=== PATIENT | female | born 2005 | race Caucasian/White ===

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

== ENCOUNTER → 2023-03-05 23:23 | Outpatient (CLI) | payer BC, SELFPAY | PROVIDERS: PCP Nurse Practitioner; Visit Provider Nurse Practitioner | DX: R30.0 Dysuria (principal) | CPT/HCPCS: 87086 ==

== ENCOUNTER → 2023-05-26 23:22 | Outpatient (CLI) | payer BC, SELFPAY | PROVIDERS: PCP Nurse Practitioner; Visit Provider Nurse Practitioner | DX: N39.0 Urinary tract infection, site not specified (principal) | CPT/HCPCS: 87086 ==

== ENCOUNTER → 2023-07-29 21:08 | Outpatient (CLI) | payer BC, SELFPAY | PROVIDERS: PCP Nurse Practitioner; Visit Provider Nurse Practitioner | DX: R30.0 Dysuria (principal) | CPT/HCPCS: 87086 ==

== ENCOUNTER → 2023-10-09 23:31 | Outpatient (CLI) | payer BC, SELFPAY | PROVIDERS: PCP Nurse Practitioner; Visit Provider Nurse Practitioner | DX: N10 Acute pyelonephritis (principal); B96.89 Other specified bacterial agents as the cause of diseases classified elsewhere | CPT/HCPCS: 87086 ==

== ENCOUNTER → 2023-10-15 09:16 | Outpatient (CLI) | payer BC, SELFPAY | PROVIDERS: PCP Nurse Practitioner; Visit Provider Nurse Practitioner | DX: N39.0 Urinary tract infection, site not specified (principal); B96.89 Other specified bacterial agents as the cause of diseases classified elsewhere | CPT/HCPCS: 87086 ==

== ENCOUNTER 2023-10-21 19:22 | Emergency (ER) | payer BC, SELFPAY ==
[2023-10-21 19:24] VITALS: BP 119/74; PULSE 77; RESP 16; TEMP 36.6; O2SAT 97; BMI 25.7
[2023-10-21 20:00] LABS: Microscopic, Urine URINE MICROSCOPIC (MICROSCOPIC)
[2023-10-21 20:04] LABS: Appearance,Urine CLEAR (Clear); Blood, Urine TRACE-I (Negative); Color,Urine YELLOW (Yellow); Glucose,Urine (UA) Negative (Negative); Ketones,Urine Negative (Negative); Leukocyte Esterase,Urine 1+ (Negative); Nitrate,Urine Negative (Negative); PH,Urine 6.5 (5.0-8.5); Protein,Urine Negative (Negative); Urobilinogen,Urine 0.2 EU/dl (0.2)
--- NOTE | 2023-10-21 20:41 | HMH.EDGENADL ---
Discharge Plan Disposition Patient Disposition: Home, Self-Care Prescriptions Prescriptions: New nitrofurantoin monohyd/m-cryst [Macrobid] 100 mg capsule 100 mg PO BID 30 Days Qty: 60 0RF Rx Instructions: must administer with a meal/food No Action varenicline [Chantix Starting Month Box] 0.5 mg (11)- 1 mg (42) tablets,dose pack See Rx Instructions PO PER PKG DIR Qty: 53 0RF Rx Instructions: PO PER PKG DIR naproxen [Naprosyn] 500 mg tablet 500 mg PO BID Qty: 60 3RF cyclobenzaprine 10 mg tablet 10 mg PO TID PRN (Reason: muscle spasm) Qty: 90 0RF doxycycline hyclate 100 mg tablet 100 mg PO BID Qty: 14 0RF nitrofurantoin macrocrystal 50 mg capsule 50 mg PO .PRN Rx Instructions: must administer with a meal/food; take before intercourse phenazopyridine [Pyridium] 200 mg tablet 200 mg PO TID 0 Days Qty: 6 0RF olanzapine 5 mg tablet See Rx Instructions .ROUTE .COMPLEX Qty: 30 5RF Dose Instruction: TAKE 1 TABLET BY MOUTH EVERYDAY AT BEDTIME Rx Instructions: TAKE 1 TABLET BY MOUTH EVERYDAY AT BEDTIME fluoxetine 20 mg capsule See Rx Instructions .ROUTE .COMPLEX Qty: 30 5RF Dose Instruction: TAKE 1 CAPSULE BY MOUTH EVERY DAY Rx Instructions: TAKE 1 CAPSULE BY MOUTH EVERY DAY norethindrone-e.estradiol-iron [12/20 (28)] 1 mg-20 mcg (21)/75 mg (7) tablet See Rx Instructions .ROUTE .COMPLEX Qty: 84 3RF Dose Instruction: TAKE 1 TABLET BY MOUTH EVERY DAY Rx Instructions: TAKE 1 TABLET BY MOUTH EVERY DAY Referrals Follow up/Referrals: Maeve Kruger APRN [Primary Care Provider] - See instructions Activity Restrictions/Add. Instructions Additional Instructions/Restrictions: Follow-up with your family doctor regarding this visit to the emergency department. Also call your urologist and talk to them about interstitial cystitis and long-term treatment. Macrobid twice daily for 4 weeks to try to help with symptoms. Call your family doctor to establish care for this visit to the emergency department and schedule follow-up within 48 hours to ensure improvement. If you have any worsening of your condition or any other concerning signs or symptoms, return to the emergency department or your primary care doctor for further evaluation. Clinical Impressions Clinical Impression: Interstitial cystitis Instructions Patient Instructions: DI for Urinary Tract Infection (UTI), DI for Urinary Tract Infection in Children Discharge ED Provider: Adolph Valle[facility] Adult HPI General Chief complaint: Urogenital-Female Stated complaint: burning freqent urination, back pain Time Seen by Provider: 10/21/23 19:48 Mode of Arrival: Ambulatory Source of Information: Patient Limitations: No Limitations Description of Symptoms (Recalled from ER Triage Doc. by RN): pt reports hx of chronic UTIs, most recent 2 weeks ago, reports having urgency and pressure with urination, reports low back pain and headache also History of Present Illness HPI narrative: 18-year-old female history of UTIs presenting with abdominal pain, dysuria. Patient states that she started this episode today, 10/21. 1 episode of vomiting. No fevers or chills, flank pain. Patient has seen urologist and manager photography, has not gotten any answers so presents to the ER today. Related Data Home Medications Medication Instructions Recorded Confirmed nitrofurantoin macrocrystal 50 mg 50 mg PO .PRN UTI prevention 10/09/23 10/20/23 capsule Previous Rx's Medication Instructions Recorded varenicline 0.5 mg (11)-1 mg (42) See Rx Instructions PO PER PKG DIR 05/26/23 tablets in a dose pack (Chantix #53 tabs Starting Month Box) cyclobenzaprine 10 mg tablet 10 mg PO TID PRN muscle spasm #90 07/04/23 tabs naproxen 500 mg tablet (Naprosyn) 500 mg PO BID #60 tabs 07/04/23 fluoxetine 20 mg capsule See Rx Instructions .Route 07/25/23 .COMPLEX #30 caps olanzapine 5
[2023-10-21 21:00] VITALS: BP 117/68; PULSE 69; O2SAT 96
[2023-10-21 21:02] LABS: Bilirubin,Urine 1+ (Negative)
[2023-10-21 21:03] LABS: Urine Pregnancy, HCG Qual. Negative (Negative)
[2023-10-21 21:15] VITALS: BP 117/68; PULSE 69; RESP 16; TEMP 36.6; O2SAT 97
--- NOTE | 2023-10-21 22:02 | PC.NURSE ---
in room talking with family at this time.
== END 2023-10-21 21:24 | disposition home or self-care (01) ==
PROVIDERS: Emergency Provider Emergency Medicine; PCP Nurse Practitioner
DX: N30.10 Interstitial cystitis (chronic) without hematuria (principal); M54.59 Other low back pain; R51.9 Headache, unspecified; R11.10 Vomiting, unspecified; F17.290 Nicotine dependence, other tobacco product, uncomplicated; B96.89 Other specified bacterial agents as the cause of diseases classified elsewhere
CPT/HCPCS: 81001; 81025; 87086; 99283

== ENCOUNTER 2023-12-18 19:35 | Outpatient (CLI) | payer BC, SELFPAY ==
[2023-12-18 18:57] LABS: Coronavirus 19, PCR Not Detected (NotDetected); Influenza A, PCR Not Detected (NotDetected); Influenza B, PCR Not Detected (NotDetected)
== END 2023-12-18 23:59 ==
LOC: LAB.DROPOF 19:36
PROVIDERS: PCP Nurse Practitioner; Visit Provider Nurse Practitioner
DX: J06.9 Acute upper respiratory infection, unspecified (principal); J02.9 Acute pharyngitis, unspecified; B95.0 Streptococcus, group A, as the cause of diseases classified elsewhere
CPT/HCPCS: 87636

== ENCOUNTER 2024-01-08 22:15 | Outpatient (CLI) | payer BC, SELFPAY | END 2024-01-08 23:59 | LOC: LAB.DROPOF 22:15 | PROVIDERS: PCP Nurse Practitioner; Visit Provider Nurse Practitioner | DX: R30.0 Dysuria (principal); B95.2 Enterococcus as the cause of diseases classified elsewhere; B96.29 Other Escherichia coli [E. coli] as the cause of diseases classified elsewhere | CPT/HCPCS: 87086 ==

== ENCOUNTER 2024-01-28 18:41 | Outpatient (CLI) | payer BC, SELFPAY | END 2024-01-28 23:59 | LOC: LAB.DROPOF 18:41 | PROVIDERS: PCP Nurse Practitioner; Visit Provider Nurse Practitioner | DX: R30.0 Dysuria (principal); B96.89 Other specified bacterial agents as the cause of diseases classified elsewhere | CPT/HCPCS: 87086 ==

== ENCOUNTER 2024-02-09 18:26 | Outpatient (CLI) | payer BC, SELFPAY | END 2024-02-09 23:59 | LOC: LAB.DROPOF 18:26 | PROVIDERS: PCP Nurse Practitioner; Visit Provider Nurse Practitioner | DX: R31.9 Hematuria, unspecified (principal); B95.2 Enterococcus as the cause of diseases classified elsewhere; R30.0 Dysuria | CPT/HCPCS: 87086 ==

== ENCOUNTER 2024-03-01 18:27 | Outpatient (CLI) | payer BC, SELFPAY | END 2024-03-01 23:59 | LOC: LAB.DROPOF 18:27 | PROVIDERS: PCP Family Medicine; Visit Provider Family Medicine | DX: R30.0 Dysuria (principal) | CPT/HCPCS: 87086 ==

== ENCOUNTER 2024-05-17 15:41 | Outpatient (CLI) | payer BC, SELFPAY ==
--- NOTE | 2024-05-17 15:46 | XR_ITS ---
FINAL REPORT CLINICAL HISTORY: mid/low back pain after fall at home on Friday. FINDINGS: No fracture is seen. There is minimal dextroscoliosis measuring 9 degrees. The alignment is otherwise normal. No significant degenerative changes are seen. IMPRESSION: No acute abnormality identified. Reviewed, Interpreted and Dictated by Cristopher Conley MD Transcribed by Shanice Stewart Authenticated and [facility]
--- NOTE | 2024-05-17 15:46 | XR_ITS ---
FINAL REPORT CLINICAL HISTORY: mid/low back pain after fall at home on Friday. FINDINGS: No fracture is identified. Disc spaces are well-preserved. Alignment is normal. IMPRESSION: Unremarkable lumbar spine series. Reviewed, Interpreted and Dictated by Cristopher Conley MD Transcribed by Shanice Stewart Authenticated and [facility]
== END 2024-05-17 23:59 | disposition home or self-care (01) ==
LOC: RAD 15:42
PROVIDERS: PCP Nurse Practitioner; Visit Provider Nurse Practitioner
DX: M54.6 Pain in thoracic spine (principal); M54.50 Low back pain, unspecified; M62.830 Muscle spasm of back
CPT/HCPCS: 72070; 72100

== ENCOUNTER 2024-06-18 11:53 | Emergency (ER) | payer BC, SELFPAY ==
--- NOTE | 2024-06-18 12:07 | XR_ITS ---
FINAL REPORT CLINICAL HISTORY: pain FINDINGS: AP, oblique, and lateral views of the left wrist were obtained. There is no prior exam for comparison. There is no acute fracture or dislocation. The joint spaces are preserved. The soft tissues are normal. IMPRESSION: No acute osseous abnormality of the left wrist. If pain persists, MR is recommended. Reviewed, Interpreted and Dictated by Shabnam Win MD Transcribed by Shanice Stewart Authenticated and [facility]
--- NOTE | 2024-06-18 12:07 | XR_ITS ---
FINAL REPORT CLINICAL HISTORY: pain FINDINGS: AP, lateral and oblique views of the right hand were obtained. There is no prior exam for comparison. There is no acute fracture or dislocation. The joint spaces are preserved. The soft tissues are normal. IMPRESSION: No acute osseous abnormality of the right hand. Reviewed, Interpreted and Dictated by Shabnam Win MD Transcribed by Shanice Stewart Authenticated and [facility]
[2024-06-18 12:09] VITALS: BP 146/82; PULSE 115; RESP 18; TEMP 36.6; O2SAT 98; BMI 26.4
--- NOTE | 2024-06-18 12:17 | EXP.UTC ---
Discharge Plan Disposition Patient Disposition: Home, Self-Care Condition: Good Prescriptions Prescriptions: No Action benzoyl peroxide 5 % cleanser topical Patient Comments: APPLY DAILY IN THE SHOWER TO THE AFFECTED AREAS OF THE THIGHS. LET SIT 5 MINUTES THEN RINSE. propranolol 20 mg tablet 20 mg PO TID PRN (Reason: anxiety) Qty: 90 2RF cyclobenzaprine 10 mg tablet 10 mg PO TID PRN (Reason: muscle spasm) Qty: 90 0RF venlafaxine [Effexor XR] 150 mg capsule,extended release 24hr 150 mg PO DAILY Qty: 30 2RF Referrals Follow up/Referrals: Maeve Kruger APRN [Primary Care Provider] - See instructions Activity Restrictions/Add. Instructions Additional Instructions/Restrictions: *RICE, Rest the extremity, Ice 15-20 minutes 3-4 times daily, Compress- wear the myron wrap as discussed as much as possible to help reduce swelling and pain, Elevate the extremity when at rest *Myron wrap is for support and help control swelling, use it except in the shower. Be sure that is not to tight but not to loose either *Elevate when resting? *Ibuprofen 600-800mg every 6-8 hours as needed for pain an inflammation. If need something more can take Tylenol in between doses of Ibuprofen to help Immediately follow up with your family doctor for new or worsening of symptoms, or no noticeable improvement over the next 3-5 days Clinical Impressions Clinical Impression: Contusion of hand Instructions Patient Instructions: DI for Contusion, How To Perform RICE (Rest, Ice, Compress, Elevate) Discharge ED Provider: Sara Solis [facility] General Stated complaint: AO 06/18 Left hand pain swelling bruising Mode of Arrival: Ambulatory Source of Information: Patient Limitations: No Limitations Time Seen by Provider: 06/18/24 12:18 Description of Symptoms (Recalled from Triage Doc. by RN): States she was punching a punching bag without a glove on and now feels that she may have broken her hand. HEENT Symptoms (Recalled from RN notes): No Resp Symptoms (Recalled from RN notes): No Skin Symptoms (Recalled from RN notes): No MS Symptoms (Recalled from RN notes): Yes Functional Status (Recalled from RN notes): wnl History of Present Illness Provider Complaint: Patient states that she was punching a punching bag without a glove and now she is having pain in her left hand and wrist States that she is worried that she may have broken something in her hand so she came in to get checked Related Data Home Medications Medication Instructions Recorded Confirmed benzoyl peroxide 5 % topical topical 06/07/24 06/07/24 cleanser Previous Rx's Medication Instructions Recorded propranolol 20 mg tablet 20 mg PO TID PRN anxiety #90 tabs 03/15/24 venlafaxine 150 mg 150 mg PO DAILY #30 caps 05/04/24 capsule,extended release 24 hr (Effexor XR) cyclobenzaprine 10 mg tablet 10 mg PO TID PRN muscle spasm #90 05/17/24 tabs Allergies Allergy/AdvReac Type Severity Reaction Status Date / Time ciprofloxacin Allergy Unknown Vomiting Verified 06/07/24 16:05 ceftriaxone AdvReac Unknown Dizziness Verified 06/07/24 16:05 Worker's Comp Is this a Worker's Comp case?: No [facility] Disclaimer: The information contained in this section may have been updated after the patient was seen, as this information can be updated by other users. 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 Urinary tract infection due to Enterococcus ADHD (attention deficit hyperactivity disorder), combined type Chronic post-traumatic stress disorder (PTSD) Generalized anxiety disorder with panic attacks MDD (major depressive disorder), recurrent episode, moderate Anxiety and depression Dyspareunia Recurrent UTI Encounter for smoking cessation counseling Nicotine dependence Myofasciitis Depression Hearing loss Surgical History (Updated 06/07/24 @ 16:07 by Margo Moody LPN) [place] teeth extracted Family History (Updated 06/07/24 @ 16:07 by Margo Moody LPN) Other No significant family history Social History Smoking Status: Current every day smoker tobacco type: e-cigarettes alcohol intake: current alcohol intake frequency: holidays/special occasions only substance use type: marijuana (Joanne reports smoking multiple blunts per day for calmness.) current occupational status: unemployed Travel in the last 8 weeks: None ROS Obtained: Yes All systems reviewed & no additional complaints except as documented and Yes Systems reviewed as appropriate & no additional complaints except as documented Constitutional Constitutional: Reports system reviewed and no additional complaints, except as documented and Reports as per HPI ENT Ears, Nose, Mouth, and Throat: Reports system reviewed and no additional complaints, except as documented and Reports as per HPI Cardiovascular Cardiovascular: Reports system reviewed and no additional complaints, except as documented and Reports as per HPI Respiratory Respiratory: Reports system reviewed and no additional complaints, except as documented and Reports as per HPI Gastrointestinal Gastrointestingal: Reports system reviewed and no additional complaints, except as documented and as per HPI Musculoskeletal Musculoskeletal: Reports system reviewed and no additional complaints, except as documented, Reports as per HPI and Reports other (Pain in left wrist and hand) Physical Exam General General appearance: alert and in no apparent distress ENT ENT exam: Present mucous membranes moist Respiratory Respiratory exam: Present normal lung sounds bilaterally; Absent respiratory distress or wheezes Cardiovascular Cardiovascular exam: Present regular rate, normal rhythm and normal heart sounds Expanded Upper Extremity Exam Left: Hand exam: Present tenderness and swelling; Absent ecchymosis, dislocation or erythema Hand L/R back image: 1. reports pain and tenderness mild swelling Neurological Exam Neurological exam: Present alert, oriented X3 and normal gait Medical Decision Making Alex Inquiry Pt receiving controlled substance: No Alex was queried for this patient: No Vital Signs: 06/18/24 12:09 Temperature 97.9 F Temperature Source Oral Pulse Rate [Radial] 115 H Respiratory Rate 18 Blood Pressure [Right Arm] 146/82 H Blood Pressure Mean [Right Arm] 103 Blood Pressure Source [Right Arm] Automatic Cuff Blood Pressure Position [Right Arm] Sitting 02 Sat by Pulse Oximetry 98 Oxygen Delivery Method Room Air Orders (Tests/Meds): ORDERS Category Date Time Status Wrist XR left minimum 3 views [XR wrist LT min 3V] Stat Exams 06/18/24 12:07 Ordered XR hand LT min 3V Stat Exams 06/18/24 12:07 Ordered Radiology Data #1: Image(s): Wrist Image Reviewed: Yes I have reviewed radiologist's interpretation No acute osseous abnormality of left wrist if pain persist MR recommended #2: Image(s): Hand Image Reviewed: Yes I have reviewed radiologist's interpretation No acute osseous abnormality of the right hand Procedures Orthopedic Splinting/Casting Injury #1: Side: left Upper Extremity Injury Location: wrist and hand Upper Extremity Immobilizer: Myron wrap and applied by nurse/dr echeverria Post Cast/Splinting Neuro Status: intact and no change Post Cast/Splinting Vasc Status: intact and no change
[2024-06-18 13:28] VITALS: BP 146/82; PULSE 115; RESP 18; TEMP 36.6; O2SAT 98
== END 2024-06-18 13:29 | disposition home or self-care (01) ==
PROVIDERS: Emergency Provider Nurse Practitioner; PCP Nurse Practitioner
DX: S60.222A Contusion of left hand, initial encounter (principal); M79.642 Pain in left hand; W22.8XXA Striking against or struck by other objects, initial encounter
CPT/HCPCS: 73110; 73130; 99203; 99212; G0463

== ENCOUNTER 2024-06-29 16:20 | Emergency (ER) | payer BC, SELFPAY ==
[2024-06-29 16:27] VITALS: BP 147/87; PULSE 68; O2SAT 100
[2024-06-29 16:30] VITALS: BP 152/88; PULSE 97; O2SAT 99
--- NOTE | 2024-06-29 16:32 | ED_ITS ---
Discharge Plan Disposition Patient Disposition: Home, Self-Care Condition: Good Prescriptions Prescriptions: New nitrofurantoin monohyd/m-cryst [Macrobid] 100 mg capsule 100 mg PO BID 7 Days Qty: 14 0RF Rx Instructions: must administer with a meal/food No Action benzoyl peroxide 5 % cleanser topical Patient Comments: APPLY DAILY IN THE SHOWER TO THE AFFECTED AREAS OF THE THIGHS. LET SIT 5 MINUTES THEN RINSE. propranolol 20 mg tablet 20 mg PO TID PRN (Reason: anxiety) Qty: 90 2RF cyclobenzaprine 10 mg tablet 10 mg PO TID PRN (Reason: muscle spasm) Qty: 90 0RF venlafaxine [Effexor XR] 150 mg capsule,extended release 24hr 150 mg PO DAILY Qty: 30 2RF Referrals Follow up/Referrals: Maeve Kruger APRN [Primary Care Provider] - See instructions Activity Restrictions/Add. Instructions Additional Instructions/Restrictions: You were evaluated in the emergency department today. Please take Tylenol and ibuprofen at home as needed for pain. 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 Follow-up closely with your primary care provider as well as with a microfilm processor. Return to the emergency department for new or worsening symptoms. Clinical Impressions Clinical Impression: Lower abdominal pain, Ovarian cyst, UTI (urinary tract infection) Stand Alone Forms Stand Alone Forms: Work/School Release Instructions Patient Instructions: DI for Urinary Tract Infection (UTI), DI for Ovarian Cyst, DI for Acute Abdominal Pain Print Language Print Language: Chinese Discharge ED Provider: Reema Fletcher General Adult HPI General Chief complaint: Abdominal Pain Stated complaint: Stomach pain Time Seen by Provider: 06/29/24 16:22 History of Present Illness HPI narrative: This patient is a 18-year-old female with history of interstitial cystitis and recurrent UTIs presenting to the emergency department for evaluation with concern for severe left lower quadrant abdominal pain. She states it started 3 days ago and has progressively worsened since then. She notes that she initially thought that it was her period, however the symptoms have been getting much worse. She notes that she had an unusual period this time with bleeding for almost 2 weeks, but the bleeding stopped yesterday. The pain persisted. No fevers, nausea, vomiting, dysuria, urinary frequency, or other concerns. She does note constipation on review of systems. She is not currently on any sort of control and notes that she is sexually active but denies concern for sexually transmitted infection. Related Data Home Medications ?Medication ?Instructions ?Recorded ?Confirmed benzoyl peroxide 5 % topical topical 06/07/24 06/29/24 cleanser Previous Rx's ?Medication ?Instructions ?Recorded propranolol 20 mg tablet 20 mg PO TID PRN anxiety #90 tabs 03/15/24 venlafaxine 150 mg 150 mg PO DAILY #30 caps 05/04/24 capsule,extended release 24 hr (Effexor XR) cyclobenzaprine 10 mg tablet 10 mg PO TID PRN muscle spasm #90 05/17/24 tabs nitrofurantoin 100 mg PO BID 7 days #14 caps 06/29/24 monohydrate/macrocrystals 100 mg capsule (Macrobid) Allergies Allergy/AdvReac Type Severity Reaction Status Date / Time ciprofloxacin Allergy Unknown Vomiting Verified 06/29/24 11:17 ceftriaxone AdvReac Unknown Dizziness Verified 06/29/24 11:17 [facility] Disclaimer: The information contained in this section may have been updated after the patient was seen, as this information can be updated by other users. 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 Urinary tract infection due to Enterococcus ADHD (attention deficit hyperactivity disorder), combined type Chronic post-traumatic stress disorder (PTSD) Generalized anxiety disorder with panic attacks MDD (major depressive disorder), recurrent episode, moderate Anxiety and depression Dyspareunia Recurrent UTI Encounter for smoking cessation counseling Nicotine dependence Myofasciitis Depression Hearing loss Surgical History [place] teeth extracted Family History Other No significant family history Social History Smoking Status: Current every day smoker tobacco type: e-cigarettes alcohol intake: current alcohol intake frequency: holidays/special occasions only substance use type: marijuana (Joanne reports smoking multiple blunts per day for calmness.) current occupational status: unemployed Travel in the last 8 weeks: None ROS Obtained: Yes All systems reviewed & no additional complaints except as documented Physical Exam General General appearance: alert Comment: Uncomfortable appearing Head Head exam: atraumatic and normocephalic Eye Eye exam: Present normal appearance, PERRL and EOMI ENT ENT exam: Present normal exam, normal oropharynx, mucous membranes moist and normal external ear exam Neck Neck exam: Present normal inspection, full ROM and trachea midline; Absent tenderness Chest Chest inspection: Present normal inspection and symmetric chest wall rise; Absent tenderness Respiratory Respiratory exam: Present normal lung sounds bilaterally; Absent respiratory distress, wheezes, stridor or accessory muscle use Cardiovascular Cardiovascular exam: Present regular rate and normal rhythm Abdominal Exam Abdominal exam: Present soft and tenderness (Left lower quadrant, suprapubic); Absent distention, guarding, rebound or rigidity Extremities Exam Extremities exam: Present normal inspection, full ROM and normal capillary refill; Absent tenderness or edema Back Exam Back exam: Present normal inspection and full ROM; Absent tenderness Neurological Exam Neurological exam: Present alert, oriented X3, CN II-XII intact and normal gait; Absent motor sensory deficit Psychiatric Psychiatric exam: Present normal affect and normal mood Skin Skin exam: Present warm and dry Medical Decision Making Medical Records Medical records reviewed: Yes I reviewed the patient's medical records. Alex Inquiry Pt receiving controlled substance: No Vital Signs: 06/29/24 16:27 06/29/24 16:30 06/29/24 16:45 Temperature 97.7 F Temperature Source Oral Pulse Rate 68 97 H Pulse Rate [Left Radial] 86 Respiratory Rate 20 Blood Pressure 147/87 H 152/88 H Blood Pressure [Right Arm] 147/87 H Blood Pressure Mean [Right Arm] 107 Blood Pressure Source 02 Sat by Pulse Oximetry 100 99 96 Oxygen Delivery Method Room Air 06/29/24 16:51 06/29/24 19:46 Temperature 97.7 F Temperature Source Oral Pulse Rate 95 H 89 Pulse Rate [Left Radial] Respiratory Rate 16 Blood Pressure 124/94 H 128/84 Blood Pressure [Right Arm] Blood Pressure Mean [Right Arm] Blood Pressure Source Automatic Cuff 02 Sat by Pulse Oximetry 98 Oxygen Delivery Method Room Air Lab Data Lab results reviewed: Yes I reviewed the patient's lab results. Lab Results 06/29/24 16:25: Urine Color Yellow, Urine Appearance Cloudy, Urine pH 6.5, Ur Specific [place] 1.020, Urine Protein Negative, Urine Glucose (UA) Negative, Urine Ketones Negative, Urine Blood 1+, Urine Nitrate Negative, Urine Bilirubin Negative, Urine Urobilinogen 0.2, Ur Leukocyte Esterase 1+ A, Urine RBC Occasional, Urine WBC 5-10, Ur Squamous Epith Cells 10-20, Amorphous Sediment 2+, Urine Bacteria 1+ 06/29/24 16:30: WBC 9.3, RBC 4.58, Hgb 14.7, Hct 43.8, MCV 95.7, MCH 32.1 H, MCHC 33.6, RDW 13.5, Plt Count 310, MPV 8.0, Neut % (Auto) 53.6, Lymph % (Auto) 38.3, [place] % (Auto) 4.6, Eos % (Auto) 2.6, Baso % (Auto) 0.9, Neut # (Auto) 5.0, Lymph # (Auto) 3.6, [place] # (Auto) 0.4, Eos # (Auto) 0.3, Baso # (Auto) 0.1, Sodium 141, Potassium 4.2, Chloride 108 H, Carbon Dioxide 26, Anion Gap 11.2, B UN 6 L, Creatinine 0.70, Estimated Creat Clear 138, Estimated GFR 107, Est GFR ( Amer) 129, Glucose 91, Calcium 9.8, Total Bilirubin 0.5, AST 34, ALT 18, Alkaline Phosphatase 72, Total Protein 8.1, Albumin 4.8, Globulin 3.3 H, Albumin/Globulin Ratio 1.5, Lipase 60, Serum HCG, Qual Negative 06/29/24 16:30 06/29/24 16:30 Orders (Tests/Meds): ED MEDICATIONS Discontinued Medications Generic Name Dose Route Start Last Admin Trade Name Koleq PRN Reason Stop Dose Admin Acetaminophen 1,000 mg 06/29/24 16:29 06/29/24 17:00 Acetaminophen 1,000mg/100ml Vial IV 06/29/24 16:30 1,000 mg ONCE ONE Administration Lactated Ringer's 1,000 mls @ 999 mls/hr 06/29/24 16:29 06/29/24 17:00 Lactated Ringer's 1000 Ml Bag IV 06/29/24 17:29 999 mls/hr .Q1H1M ONE Administration Iopamidol 75 ml 06/29/24 17:03 06/29/24 17:04 Iopamidol-370 (76%);100ml Bottle IV 06/29/24 17:04 75 ml ONCE ONE Administration Ketorolac Tromethamine 15 mg 06/29/24 16:29 06/29/24 17:00 Ketorolac 30mg/Ml Vial IV 06/29/24 16:30 15 mg ONCE ONE Administration Morphine Sulfate 4 mg 06/29/24 17:27 06/29/24 17:31 Morphine 4mg/Ml Syringe IV 06/29/24 17:28 4 mg ONCE ONE Administration Nitrofurantoin Macrocrystals 100 mg 06/29/24 19:35 06/29/24 19:41 Nitrofurantoin 100mg Capsule PO 06/29/24 19:36 100 mg ONCE ONE Administration Sodium Chloride 10 ml 06/29/24 17:03 06/29/24 17:04 Sodium Chloride 0.9% 10ml Syr (Rad Only) IV 06/29/24 17:04 10 ml ONCE ONE Administration ORDERS Category Date Time Status CT abdomen pelvis w con Stat Cat Scan 06/29/24 16:54 Completed US transvaginal Stat Exams 06/29/24 17:14 Completed Complete Blood Count Auto Diff Stat Lab 06/29/24 16:30 Completed Comprehensive Metabolic Panel Stat Lab 06/29/24 16:30 Completed Lipase Stat Lab 06/29/24 16:30 Completed Serum [HCG Qualitative, Serum] Stat Lab 06/29/24 16:30 Completed UA [Urinalysis and Microscopic] Stat Lab 06/29/24 16:25 Completed Urine Culture Stat Micro 06/29/24 16:25 Received Medical Decision Narrative: In summary, this patient is a 18-year-old female presenting to the Emergency Department for evaluation of lower abdominal pain. Differential diagnoses considered include but are not limited to ovarian cyst, ovarian torsion, appendicitis, colitis, cystitis, ureterolithiasis. Ruling out the most morbid conditions drove assessment. On exam, the patient is uncomfortable appearing with lower abdominal tenderness but no rebound or guarding. Workup included CBC, CMP, lipase, urinalysis, test, urine gonorrhea chlamydia. She was given a bolus of IV fluids as well as IV Toradol, acetaminophen, and Zofran for symptomatic improvement.. I independently interpreted CT scan prior to the radiologist read and noted ovarian cysts and pelvic free fluid. Given this, I did order transvaginal ultrasound. This demonstrated ovarian cysts with pelvic free fluid, but the patient did have good blood flow to both ovaries. Please see their read for final interpretation. Labs were obtained that demonstrated concerns for potential urinary tract infection with positive leukocyte esterase and bacteria. It is slightly contaminated with squamous cells, but in the setting of pelvic pain, it is possible the patient does have a urinary tract infection at this time. I discussed this with her and she advised that she does want to proceed with antibiotic treatment. She was given oral Macrobid here. On reassessment, patient had some improvement after administration of as above. She still was tearful and complaining of pain, so she was given a dose of IV morphine. This significantly improved her pain. She had nonfocal abdominal exam on reassessment with no significant tenderness. Vitals reassuring on cardiac telemetry. She states that overall she is feeling a lot better. Ultimately I feel she likely had an ovarian cyst that could have potentially ruptured causing her free fluid, but there is no evidence of torsion or other concern at this time. Given her symptoms have improved and we have ruled out life-threatening pathology with her workup, I feel that she is appropriate for discharge home with prescription for Macrobid and instructions for supportive management. She was given instructions for close gynecology follow-up and strict return precautions. She was discharged after all questions were answered. Critical Care Critical Care Time Critical Care Time: No
[2024-06-29 16:34] LABS: Microscopic, Urine URINE MICROSCOPIC (MICROSCOPIC)
[2024-06-29 16:40] LABS: Basophils # 0.1 K/mm3 (0-0.2); Basophils % 0.9 % (0.1-2.0); Eosinophils # 0.3 K/mm3 (0.0-0.4); Eosinophils % 2.6 % (0.1-12.0); Hematocrit 43.8 % (37.0-47.0); Hemoglobin 14.7 g/dL (12.2-16.2); Lymphocytes # 3.6 K/mm3 (0.7-4.5); Lymphocytes % 38.3 % (10-50); Mean Corpuscular HGB Conc 33.6 g/dL (31.8-35.4); Mean Corpuscular Hemoglobin 32.1 pg (27.0-31.2); Mean Corpuscular Volume 95.7 fl (81-99); Monocytes # 0.4 K/mm3 (0.1-1.0); Monocytes % 4.6 % (1.7-9.3); Neutrophils % 53.6 % (37.0-80.0); Platelet Count 310 K/mm3 (142-424); Red Blood Count 4.58 M/mm3 (4.20-5.40); Red Cell Distribution Width 13.5 % (11.5-17.5); White Blood Count 9.3 K/mm3 (4.5-13.0)
[2024-06-29 16:45] VITALS: BP 147/87; PULSE 86; RESP 20; TEMP 36.5; O2SAT 96; BMI 25.0
[2024-06-29 16:49] LABS: Appearance,Urine CLOUDY (Clear); Bilirubin,Urine Negative (Negative); Blood, Urine 1+ (Negative); Color,Urine YELLOW (Yellow); Glucose,Urine (UA) Negative (Negative); Ketones,Urine Negative (Negative); Leukocyte Esterase,Urine 1+ (Negative); Nitrate,Urine Negative (Negative); PH,Urine 6.5 (5.0-8.5); Protein,Urine Negative (Negative); Urobilinogen,Urine 0.2 EU/dl (0.2)
[2024-06-29 16:50] LABS: Albumin Level 4.8 g/dl (3.5-5.0); Chloride 108 mmol/L (98-107); Potassium 4.2 mmoL/L (3.5-5.1); Sodium 141 mmol/L (136-145)
[2024-06-29 16:51] VITALS: BP 124/94; PULSE 95; O2SAT 98
[2024-06-29 16:52] LABS: Blood Urea Nitrogen 6 mg/dl (7-17); Creatinine Clearance Estimated 138 mL/min (50-200); Estimated Glomerular Filt Rate 107 ml/min (>60); GFR (African American) 129 ML/MIN (>60)
[2024-06-29 16:53] LABS: Alanine Aminotransferase 18 U/L (12-78); Albumin/Globulin Ratio 1.5 (1.1-1.8); Alkaline Phosphatase 72 U/L (38-126); Anion Gap 11.2 mEq/L (5-15); Aspartate Amino Transferase 34 U/L (14-36); Bilirubin,Total 0.5 mg/dl (0.2-1.3); Calcium 9.8 mg/dl (8.4-10.2); Carbon Dioxide 26 mmol/L (22.0-30.0); Globulin 3.3 g/dL (1.3-3.2); Glucose 91 mg/dl (74-100); HCG Qualitative, Serum Negative (Negative); Lipase 60 U/L (23-300); Total Protein,Serum 8.1 g/dl (6.3-8.2)
--- NOTE | 2024-06-29 16:54 | CT_ITS ---
PROCEDURE INFORMATION: Exam: CT Abdomen And Pelvis With Contrast Exam date and time: 06/29/2024 5:04 PM Age: 18 years old Clinical indication: Pain; Other: Pelvic; Additional info: Llq/pelvic pain TECHNIQUE: Imaging protocol: Computed tomography of the abdomen and pelvis with contrast. Radiation optimization: All CT scans at this facility use at least one of these dose optimization techniques: automated exposure control; mA and/or kV adjustment per patient size (includes targeted exams where dose is matched to clinical indication); or iterative reconstruction. Contrast material: ISOVUE; Contrast volume: 75 ml; Contrast route: IV; COMPARISON: CT ABDOMEN PELVIS W CON 06/29/2024 5:04 PM FINDINGS: Liver: Normal. No mass. Gallbladder and biliary ducts: Normal. No calcified stones. No ductal dilation. Pancreas: Normal. No ductal dilation. Spleen: Normal. No splenomegaly. Adrenal glands: Normal. No mass. Kidneys and ureters: Normal. No hydronephrosis. Stomach and bowel: Unremarkable. No obstruction. No mucosal thickening. Appendix: No evidence of appendicitis. Intraperitoneal space: No free air. Minimal free fluid within the pelvis. Vasculature: Unremarkable. No abdominal aortic aneurysm. Lymph nodes: Unremarkable. No enlarged lymph nodes. Urinary bladder: Unremarkable as visualized. Reproductive: Unremarkable as visualized. Bones/joints: Unremarkable. No acute fracture. Soft tissues: Unremarkable. IMPRESSION: No acute findings.
[2024-06-29] MEDS: KETOROLAC 30MG/ML VIAL 15 MG IV (17:00)
[2024-06-29] MEDS: ACETAMINOPHEN 1,000MG/100ML VIAL 1000 MG IV (17:00)
[2024-06-29] MEDS: LACTATED RINGERS 1000ML 1,000 ML 999 ML IV (17:00)
[2024-06-29] MEDS: IOPAMIDOL-370 (76%);100ML BOTTLE 75 ML IV (17:04)
[2024-06-29] MEDS: SODIUM CHLORIDE 0.9% 10ML SYR (RAD ONLY) 10 ML IV (17:04)
[2024-06-29 17:05] LABS: Bacteria,Urine 1+ /lpf; RBC,Urine Occasional #/hpf (0-3)
[2024-06-29 17:06] LABS: Amorphous Sediment,Urine 2+ /lpf
--- NOTE | 2024-06-29 17:14 | US_ITS ---
PROCEDURE INFORMATION: Exam: US Pelvis, Transvaginal, Non-Obstetric Exam date and time: 06/29/2024 5:37 PM Age: 18 years old Clinical indication: Pelvic pain; Additional info: Pelvic pain, R/O torsion TECHNIQUE: Imaging protocol: Real-time transvaginal pelvic (non-obstetric) ultrasound with image documentation. Transvaginal imaging was used for better evaluation of the endometrium, adnexa, and/or cervix. COMPARISON: CT ABDOMEN PELVIS W CON 06/29/2024 5:04 PM FINDINGS: Uterus: Uterus is retroverted. Endometrial stripe is normal in thickness. Trace endometrial fluid or debris. Nabothian cyst. Right ovary/adnexa: 1.9 cm dominant follicle. No mass. Normal ovarian blood flow on color Doppler. Left ovary/adnexa: 1.7 cm dominant follicle. No mass. Normal ovarian blood flow on color Doppler. Urinary bladder: Urinary bladder is limited. Intraperitoneal space: Small amount of free fluid adjacent to the left ovary. IMPRESSION: 1. No evidence of ovarian torsion. 2. Trace endometrial fluid or debris. 3. Small amount of free fluid adjacent to the left ovary.
[2024-06-29] MEDS: MORPHINE 4MG/ML SYRINGE 4 MG IV (17:31)
--- NOTE | 2024-06-29 17:40 | PC.NURSE ---
pt stated she had pain relief from iv morphine. gave a warm blanket and tuned the lights out. pt to ultrasound
[2024-06-29] MEDS: NITROFURANTOIN 100MG CAPSULE 100 MG PO (19:41)
[2024-06-29 19:46] VITALS: BP 128/84; PULSE 89; RESP 16; TEMP 36.5; O2SAT 100
[2024-07-02 06:15] LABS: Neisseria gonorrhoeae, NAA Negative (Negative)
== END 2024-06-29 19:47 | disposition home or self-care (01) ==
PROVIDERS: Emergency Provider Emergency Medicine; PCP Nurse Practitioner
DX: R10.30 Lower abdominal pain, unspecified (principal); N39.0 Urinary tract infection, site not specified; B96.89 Other specified bacterial agents as the cause of diseases classified elsewhere; N83.292 Other ovarian cyst, left side
CPT/HCPCS: 74177; 76830; 80053; 81001; 83690; 84703; 85025; 87086; 87491; 87591; 96361; 96374; 96375; 99285; J0131; J1885; J2270; J7120; Q9967

== ENCOUNTER 2024-06-30 17:01 | Emergency (ER) | payer BC, SELFPAY ==
[2024-06-30 17:01] VITALS: BP 133/76; PULSE 80; RESP 15; TEMP 36.9; O2SAT 97; BMI 25.0
--- NOTE | 2024-06-30 17:13 | ED_ITS ---
Discharge Plan Disposition Patient Disposition: Home, Self-Care Condition: Good Prescriptions Prescriptions: New ketorolac 10 mg tablet 10 mg PO Q8H PRN (Reason: pain) Qty: 12 0RF dicyclomine 20 mg tablet 20 mg PO QID PRN (Reason: abdominal pain) Qty: 12 0RF No Action benzoyl peroxide 5 % cleanser topical Patient Comments: APPLY DAILY IN THE SHOWER TO THE AFFECTED AREAS OF THE THIGHS. LET SIT 5 MINUTES THEN RINSE. propranolol 20 mg tablet 20 mg PO TID PRN (Reason: anxiety) Qty: 90 2RF cyclobenzaprine 10 mg tablet 10 mg PO TID PRN (Reason: muscle spasm) Qty: 90 0RF venlafaxine [Effexor XR] 150 mg capsule,extended release 24hr 150 mg PO DAILY Qty: 30 2RF nitrofurantoin monohyd/m-cryst [Macrobid] 100 mg capsule 100 mg PO BID 7 Days Qty: 14 0RF Rx Instructions: must administer with a meal/food Referrals Follow up/Referrals: Maeve Kruger APRN [Primary Care Provider] - See instructions Activity Restrictions/Add. Instructions Additional Instructions/Restrictions: Please crab picker your prescriptions and take as needed for pain. You may also take Tylenol in addition to this medication. Follow-up closely with your primary care provider. It may take several days before your symptoms go away. Return to the emergency department for new or worsening symptoms. Clinical Impressions Clinical Impression: Pelvic pain Instructions Patient Instructions: DI for Acute Pain -- Adult Print Language Print Language: Serbian Discharge ED Provider: Reema Fletcher General Adult HPI General Chief complaint: PAIN Stated complaint: ABD pain, known ovarian cyst Time Seen by Provider: 06/30/24 17:06 Mode of Arrival: EMS Source of Information: Patient and EMS Limitations: No Limitations Description of Symptoms (Recalled from ER Triage Doc. by RN): pt presents to ED with c/o right lower abdominal pain. pt was seen in ED last night for same issue. pt reports that she needs pain medication for pain from ovarian cyst. pain ongoing for 4 days History of Present Illness HPI narrative: This patient is a 18-year-old female with history of PTSD, ADHD, interstitial cystitis, and recurrent UTI presenting with concern for persistent pelvic pain since being evaluated yesterday. She states that she needs pain medication to deal with the pain from ovarian cyst. This has been going on for approximately 4 days now. She arrives by EMS who noted that she was stable en route. I evaluated the patient here yesterday for pelvic pain for [address] scan of abdomen and pelvis as well as transvaginal ultrasound which demonstrated dominant follicles in her ovaries with no large ovarian cyst, good blood flow to both ovaries without concern for torsion, no evidence of appendicitis, and reassuring lab evaluation. She did have some free fluid in her pelvis, which could have potentially indicated a cyst rupture, but there was nothing surgical or life-threatening so patient was deemed to be appropriate for discharge home. She also did have some concern for UTI based on urinalysis, though it was contaminated with squamous cells. She is given prescription for Macrobid as well. I advised that she take Tylenol and ibuprofen at home for the pain, but she states that these things are not helping. She has not yet called to arrange follow-up with PCP or gynecology. Related Data Home Medications ?Medication ?Instructions ?Recorded ?Confirmed benzoyl peroxide 5 % topical topical 06/07/24 06/29/24 cleanser Previous Rx's ?Medication ?Instructions ?Recorded propranolol 20 mg tablet 20 mg PO TID PRN anxiety #90 tabs 03/15/24 venlafaxine 150 mg 150 mg PO DAILY #30 caps 05/04/24 capsule,extended release 24 hr (Effexor XR) cyclobenzaprine 10 mg tablet 10 mg PO TID PRN muscle spasm #90 05/17/24 tabs nitrofurantoin 100 mg PO BID 7 days #14 caps 06/29/24 monohydrate/macrocrystals 100 mg capsule (Macrobid) dicyclomine 20 mg tablet 20 mg PO QID PRN abdominal pain 06/30/24 #12 tabs ketorolac 10 mg tablet 10 mg PO Q8H PRN pain #12 tabs 06/30/24 Allergies Allergy/AdvReac Type Severity Reaction Status Date / Time ciprofloxacin Allergy Unknown Vomiting Verified 06/29/24 11:17 ceftriaxone AdvReac Unknown Dizziness Verified 06/29/24 11:17 [facility] Disclaimer: The information contained in this section may have been updated after the patient was seen, as this information can be updated by other users. 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 Urinary tract infection due to Enterococcus ADHD (attention deficit hyperactivity disorder), combined type Chronic post-traumatic stress disorder (PTSD) Generalized anxiety disorder with panic attacks MDD (major depressive disorder), recurrent episode, moderate Anxiety and depression Dyspareunia Recurrent UTI Encounter for smoking cessation counseling Nicotine dependence Myofasciitis Depression Hearing loss Surgical History [place] teeth extracted Family History Other No significant family history Social History Smoking Status: Current every day smoker tobacco type: e-cigarettes alcohol intake: current alcohol intake frequency: holidays/special occasions only substance use type: marijuana (Joanne reports smoking multiple blunts per day for calmness.) current occupational status: unemployed Travel in the last 8 weeks: None ROS Obtained: Yes All systems reviewed & no additional complaints except as documented Physical Exam General General appearance: alert and in no apparent distress Head Head exam: atraumatic and normocephalic Eye Eye exam: Present normal appearance, PERRL and EOMI ENT ENT exam: Present normal exam, normal oropharynx, mucous membranes moist and normal external ear exam Neck Neck exam: Present normal inspection, full ROM and trachea midline; Absent tenderness Chest Chest inspection: Present normal inspection and symmetric chest wall rise; Absent tenderness Respiratory Respiratory exam: Present normal lung sounds bilaterally; Absent respiratory distress, wheezes, stridor or accessory muscle use Cardiovascular Cardiovascular exam: Present regular rate and normal rhythm Abdominal Exam Abdominal exam: Present soft; Absent distention, tenderness or guarding Extremities Exam Extremities exam: Present normal inspection, full ROM and normal capillary refill; Absent tenderness or edema Back Exam Back exam: Present normal inspection and full ROM; Absent tenderness Neurological Exam Neurological exam: Present alert, oriented X3, CN II-XII intact and normal gait; Absent motor sensory deficit Psychiatric Psychiatric exam: Present normal affect and normal mood Skin Skin exam: Present warm and dry Medical Decision Making Medical Records Medical records reviewed: Yes I reviewed the patient's medical records. Alex Inquiry Pt receiving controlled substance: No Vital Signs: 06/30/24 17:01 06/30/24 19:34 Temperature 98.5 F 97.7 F Temperature Source Oral Oral Pulse Rate 77 Pulse Rate [Left Radial] 80 Respiratory Rate 15 16 Blood Pressure 117/77 Blood Pressure [Right Arm] 133/76 Blood Pressure Mean [Right Arm] 95 Blood Pressure Source Automatic Cuff Blood Pressure Position Sitting 02 Sat by Pulse Oximetry 97 Oxygen Delivery Method Room Air Room Air Lab Data Lab results reviewed: Yes I reviewed the patient's lab results. Lab Results 06/30/24 17:21: WBC 9.8, RBC 4.50, Hgb 14.2, Hct 42.8, MCV 95.1, MCH 31.6 H, MCHC 33.2, RDW 13.5, Plt Count 313, MPV 8.3, Neut % (Auto) 59.2, Lymph % (Auto) 34.2, [place] % (Auto) 4.6, Eos % (Auto) 1.4, Baso % (Auto) 0.6, Neut # (Auto) 5.8, Lymph # (Auto) 3.4, [place] # (Auto) 0.5, Eos # (Auto) 0.1, Baso # (Auto) 0.1 06/30/24 17:21 Orders (Tests/Meds): ED MEDICATIONS Discontinued Medications Generic Name Dose Route Start Last Admin Trade Name Freq PRN Reason Stop Dose Admin Acetaminophen 1,000 mg 06/30/24 16:59 06/30/24 17:23 Acetaminophen 1,000mg/100ml Vial IV 06/30/24 17:00 Not Given ONCE ONE Hydrocodone Bitart/Acetaminophen 1 tab 06/30/24 17:52 06/30/24 17:57 Hydrocodone/Apap 5/325 Mg Tablet PO 06/30/24 17:53 1 tab ONCE ONE Administration Lactated Ringer's 1,000 mls @ 999 mls/hr 06/30/24 16:59 06/30/24 17:22 Lactated Ringer's 1000 Ml Bag IV 06/30/24 17:59 Not Given .Q1H1M ONE Ketorolac Tromethamine 15 mg 06/30/24 16:59 06/30/24 17:23 Ketorolac 30mg/Ml Vial IV 06/30/24 17:00 Not Given ONCE ONE Ketorolac Tromethamine 30 mg 06/30/24 17:09 06/30/24 18:09 Ketorolac 30mg/Ml Vial IM 06/30/24 17:10 Not Given ONCE ONE Ketorolac Tromethamine 30 mg 06/30/24 17:36 06/30/24 17:38 Ketorolac 30mg/Ml Vial IV 06/30/24 17:37 30 mg ONCE ONE Administration Ondansetron HCl 4 mg 06/30/24 16:59 06/30/24 17:22 Ondansetron 4mg/2ml Vial IV 06/30/24 17:00 Not Given ONCE ONE ORDERS Category Date Time Status CBC w/Auto Diff [Complete Blood Count Auto Diff] Stat Lab 06/30/24 17:21 Completed Medical Decision Narrative: In summary, this patient is a 18-year-old female presenting to the Emergency Department for evaluation of persistent pain in the setting of small amount of free fluid in the pelvis seen on ultrasound yesterday with dominant bilateral ovarian follicles but no large cysts. She also had concerns for possible UTI and was prescribed Macrobid. Differential diagnoses considered include but are not limited to previous ruptured ovarian cyst, endometriosis, cystitis, pyelonephritis. Ruling out the most morbid conditions drove assessment. I reviewed patient's past medical records and noted since evaluation including CT and ultrasound yesterday which did not demonstrate acutely concerning pathology aside from mild amount of free fluid in the pelvis and possible UTI. On exam, patient is resting comfortably in no acute distress with reassuring vital signs. She is afebrile with reassuring vital signs. Abdominal exam is benign with no localizable tenderness. Will obtain CBC to evaluate for significant drop in hemoglobin in the setting of free fluid in the pelvis which could have indicated a potential cyst rupture. She was given Toradol for symptomatic improvement of pain. otherwise, since patient had extensive evaluation yesterday and symptoms have not significantly changed, I do not feel that further labs or imaging are indicated at this time. Patient initially declined Toradol, stating it did nothing for her yesterday and she requests stronger pain medication or she will just leave. I did give her oral [place] in addition to the Toradol. She had resolution of pain after the symptoms and abdominal exam remains nonfocal with no focal tenderness. CBC has not significantly changed. No new leukocytosis, no significant anemia. Given this and reassuring exam as well as her extensive workup she had yesterday, I feel that she is appropriate for discharge home with close follow-up with primary care and gynecology. Strict return precautions were given. Critical Care Critical Care Time Critical Care Time: No
[2024-06-30] MEDS: KETOROLAC 30MG/ML VIAL 30 MG IV (17:38)
[2024-06-30] MEDS: HYDROCODONE/APAP 5/325 MG TABLET 1 TAB PO (17:57)
[2024-06-30 18:25] LABS: Basophils # 0.1 K/mm3 (0-0.2); Basophils % 0.6 % (0.1-2.0); Eosinophils # 0.1 K/mm3 (0.0-0.4); Eosinophils % 1.4 % (0.1-12.0); Hematocrit 42.8 % (37.0-47.0); Hemoglobin 14.2 g/dL (12.2-16.2); Lymphocytes # 3.4 K/mm3 (0.7-4.5); Lymphocytes % 34.2 % (10-50); Mean Corpuscular HGB Conc 33.2 g/dL (31.8-35.4); Mean Corpuscular Hemoglobin 31.6 pg (27.0-31.2); Mean Corpuscular Volume 95.1 fl (81-99); Mean Platelet Volume 8.3 fl (7.4-10.4); Monocytes # 0.5 K/mm3 (0.1-1.0); Monocytes % 4.6 % (1.7-9.3); Neutrophils # 5.8 K/mm3 (1.8-7.8); Neutrophils % 59.2 % (37.0-80.0); Platelet Count 313 K/mm3 (142-424); Red Cell Distribution Width 13.5 % (11.5-17.5); White Blood Count 9.8 K/mm3 (4.5-13.0)
--- NOTE | 2024-06-30 18:46 | PC.NURSE ---
Dr Fletcher at bedside, attempt to dc pt. Pt was on the phone and would not hang up for several seconds. Pt kept holding up index finger for Dr. Fletcher to hold on. Dr. Fletcher came back out to treat other pts.
[2024-06-30 19:34] VITALS: BP 117/77; PULSE 77; RESP 16; TEMP 36.5; O2SAT 100
== END 2024-06-30 19:35 | disposition home or self-care (01) ==
PROVIDERS: Emergency Provider Emergency Medicine; PCP Nurse Practitioner
DX: R10.2 Pelvic and perineal pain (principal)
CPT/HCPCS: 85025; 96361; 96372; 96374; 96375; 96376; 99284; J1885

== ENCOUNTER 2024-07-02 18:56 | Observation (INO) | payer BC, SELFPAY ==
[2024-07-02] VITALS (7 sets, daily range): BP systolic 108–170; BP diastolic 61–85; PULSE 62–74; RESP 16–20; TEMP 36.9; O2SAT 97–98; BMI 25.0; BMI 25.2
--- NOTE | 2024-07-02 19:27 | CT_ITS ---
PROCEDURE INFORMATION: Exam: CT Abdomen And Pelvis With Contrast Exam date and time: 07/02/2024 8:44 PM Age: 18 years old Clinical indication: Abdominal pain; Additional info: Persistent abdominal pain, constipation TECHNIQUE: Imaging protocol: Computed tomography of the abdomen and pelvis with contrast. Total images: 290 Radiation optimization: All CT scans at this facility use at least one of these dose optimization techniques: automated exposure control; mA and/or kV adjustment per patient size (includes targeted exams where dose is matched to clinical indication); or iterative reconstruction. Contrast material: ISOVUE; Contrast volume: 75 ml; Contrast route: IV; COMPARISON: CT ABDOMEN PELVIS W CON 06/29/2024 5:04 PM FINDINGS: Lungs: Minor bibasilar dependent atelectasis. Heart: Normal heart size. Liver: Focal fatty infiltration near the falciform ligament. Otherwise, unremarkable liver. Gallbladder and biliary ducts: Layering density in the gallbladder lumen implying sludge or noncalcified gallstones. No secondary signs of acute cholecystitis. No bile duct dilatation. Pancreas: Normal. No ductal dilation. Spleen: Normal. No splenomegaly. Adrenal glands: Normal. No mass. Kidneys and ureters: No hydronephrosis, nephrolithiasis, or renal mass. Stomach and bowel: Unremarkable stomach and duodenum. No ileus or bowel obstruction. Unremarkable small bowel. Unremarkable colon and rectum. Appendix: Normal appendix. Intraperitoneal space: No ascites. No free air. Vasculature: The abdominal aorta is normal in caliber. Major abdominal vessels enhance appropriately. Lymph nodes: Unremarkable. No enlarged lymph nodes. Urinary bladder: Collapsed bladder. Reproductive: Retroverted uterus. 2.1 cm right ovarian cyst. 2.3 cm left ovarian cyst. Small quantity free pelvic fluid. Bones/joints: Unremarkable. No acute fracture. Soft tissues: Tiny fat containing umbilical hernia. IMPRESSION: 1. Layering density in the gallbladder lumen compatible sludge or noncalcified gallstones. If acute gallbladder symptoms, recommend follow-up ultrasound. 2. Small bilateral ovarian cysts requiring no strict follow-up. 3. Small quantity free pelvic fluid is presumed physiologic. 4. Normal appendix.
--- NOTE | 2024-07-02 19:52 | HMH.EDGENADL ---
Discharge Plan Disposition Chief Complaint: Abdominal Pain Prescriptions Prescriptions: No Action benzoyl peroxide 5 % cleanser topical Patient Comments: APPLY DAILY IN THE SHOWER TO THE AFFECTED AREAS OF THE THIGHS. LET SIT 5 MINUTES THEN RINSE. propranolol 20 mg tablet 20 mg PO TID PRN (Reason: anxiety) Qty: 90 2RF cyclobenzaprine 10 mg tablet 10 mg PO TID PRN (Reason: muscle spasm) Qty: 90 0RF venlafaxine [Effexor XR] 150 mg capsule,extended release 24hr 150 mg PO DAILY Qty: 30 2RF nitrofurantoin monohyd/m-cryst [Macrobid] 100 mg capsule 100 mg PO BID 7 Days Qty: 14 0RF Rx Instructions: must administer with a meal/food ketorolac 10 mg tablet 10 mg PO Q8H PRN (Reason: pain) Qty: 12 0RF dicyclomine 20 mg tablet 20 mg PO QID PRN (Reason: abdominal pain) Qty: 12 0RF Referrals Follow up/Referrals: Maeve Kruger APRN [Primary Care Provider] - See instructions Clinical Impressions Clinical Impression: Intractable abdominal pain, Constipation, Free fluid in pelvis, Gallbladder sludge Instructions Patient Instructions: DI for Acute Abdominal Pain Print Language Print Language: Thai Discharge ED Provider: Reema Fletcher General Adult HPI General Chief complaint: Abdominal Pain Stated complaint: abd pain, vomiting, unable to use the restroom Time Seen by Provider: 07/02/24 19:18 Mode of Arrival: Ambulatory Source of Information: Patient Limitations: No Limitations Description of Symptoms (Recalled from ER Triage Doc. by RN): Pt. presented to the ED with c/o low abdominal pain.this is the 4th ER visit since last week with the abdominal pain. Pt. was previously DX with ruptured ovarian cyst. has an appt. with Gyno on Friday.. Has had only 2 BM in last 2 days. also c/o nausea and vomiting History of Present Illness HPI narrative: This patient is a 18-year-old female with history of interstitial cystitis presenting to the emergency department for evaluation with concern for abdominal pain. Patient has been seen here 3 times in the last week for abdominal pain. I evaluated her here 06/29/2024 for abdominal pain, at which point CT scan of the abdomen and pelvis and transvaginal ultrasound were obtained that demonstrated trace pelvic free fluid in bilateral dominant ovarian follicles, but no other acutely concerning pathology. Her urine was concerning for possible infection, so she was started on antibiotics and discharged home. She was evaluated here 06/29/2024 for continued pain, but repeat CBC was reassuring at that time so no other imaging was obtained. She was discharged home with instructions to continue taking her antibiotic and to follow-up closely outpatient for further reassessment. She states that she is still having lower abdominal pain and has not been able to have a bowel movement since Friday. She notes that she has only had 2 bowel movements in the last 6 days. She had not tried medications for constipation previously, but today she took a stool softener, and oral laxative, MiraLAX, and Gas-X, and the pain worsened. She has not been able to have a bowel movement since. She denies any true fevers, but she does note nausea and vomiting. She also notes that she still having dysuria. She has been taking Azo. She denies concern for sexually transmitted infection and also denies abnormal vaginal discharge. Related Data Home Medications ?Medication ?Instructions ?Recorded ?Confirmed benzoyl peroxide 5 % topical topical 06/07/24 06/29/24 cleanser Previous Rx's ?Medication ?Instructions ?Recorded propranolol 20 mg tablet 20 mg PO TID PRN anxiety #90 tabs 03/15/24 venlafaxine 150 mg 150 mg PO DAILY #30 caps 05/04/24 capsule,extended release 24 hr (Effexor XR) cyclobenzaprine 10 mg tablet 10 mg PO TID PRN muscle spasm #90 05/17/24 tabs nitrofurantoin 100 mg PO BID 7 days #14 caps 06/29/24 monohydrate/macrocrystals 100 mg capsule (Macrobid) dicyclomine 20 mg tablet 20 mg PO QID PRN abdominal pain 06/30/24 #12 tabs ketorolac 10 mg tablet 10 mg PO Q8H PRN pain #12 tabs 06/30/24 Allergies Allergy/AdvReac Type Severity Reaction Status Date / Time ciprofloxacin Allergy Unknown Vomiting Verified 06/29/24 11:17 ceftriaxone AdvReac Unknown Dizziness Verified 06/29/24 11:17 [facility] Disclaimer: The information contained in this section may have been updated after the patient was seen, as this information can be updated by other users. 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 Urinary tract infection due to Enterococcus ADHD (attention deficit hyperactivity disorder), combined type Chronic post-traumatic stress disorder (PTSD) Generalized anxiety disorder with panic attacks MDD (major depressive disorder), recurrent episode, moderate Anxiety and depression Dyspareunia Recurrent UTI Encounter for smoking cessation counseling Nicotine dependence Myofasciitis Depression Hearing loss Surgical History [place] teeth extracted Family History Other No significant family history Social History Smoking Status: Current every day smoker tobacco type: e-cigarettes alcohol intake: current alcohol intake frequency: holidays/special occasions only substance use type: marijuana (Joanne reports smoking multiple blunts per day for calmness.) current occupational status: unemployed Travel in the last 8 weeks: None ROS Obtained: Yes All systems reviewed & no additional complaints except as documented Physical Exam General General appearance: alert and in no apparent distress Head Head exam: atraumatic and normocephalic Eye Eye exam: Present normal appearance, PERRL and EOMI ENT ENT exam: Present normal exam, normal oropharynx, mucous membranes moist and normal external ear exam Neck Neck exam: Present normal inspection, full ROM and trachea midline; Absent tenderness Chest Chest inspection: Present normal inspection and symmetric chest wall rise; Absent tenderness Respiratory Respiratory exam: Present normal lung sounds bilaterally; Absent respiratory distress, wheezes, stridor or accessory muscle use Cardiovascular Cardiovascular exam: Present regular rate and normal rhythm Abdominal Exam Abdominal exam: Present soft; Absent distention, tenderness or guarding Extremities Exam Extremities exam: Present normal inspection, full ROM and normal capillary refill; Absent tenderness or edema Back Exam Back exam: Present normal inspection and full ROM; Absent tenderness Neurological Exam Neurological exam: Present alert, oriented X3, CN II-XII intact and normal gait; Absent motor sensory deficit Psychiatric Psychiatric exam: Present normal affect and normal mood Skin Skin exam: Present warm and dry Medical Decision Making Medical Records Medical records reviewed: Yes I reviewed the patient's medical records. Alex Inquiry Pt receiving controlled substance: No Vital Signs: 07/02/24 18:57 07/02/24 19:15 07/02/24 19:27 Temperature 98.4 F Temperature Source Oral Pulse Rate 74 66 Pulse Rate [Right] 62 Respiratory Rate 20 18 20 Blood Pressure 111/84 108/61 L Blood Pressure [Right Arm] 111/84 Blood Pressure Mean 88 Blood Pressure Mean [Right Arm] 93 Blood Pressure Source Automatic Cuff Blood Pressure Source [Right Arm] Automatic Cuff Blood Pressure Position Supine Blood Pressure Position [Right Arm] Sitting 02 Sat by Pulse Oximetry 97 98 97 Oxygen Delivery Method Room Air Room Air Room Air 07/02/24 19:32 Temperature 98.4 F Temperature Source Oral Pulse Rate 66 Pulse Rate [Right] Respiratory Rate 18 Blood Pressure 170/85 H Blood Pressure [Right Arm] Blood Pressure Mean 113 Blood Pressure Mean [Right Arm] Blood Pressure Source Blood Pressure Source [Right Arm] Blood Pressure Position Blood Pressure Position [Right Arm] 02 Sat by Pulse Oximetry 98 Oxygen Delivery Method Lab Data Lab results reviewed: Yes I reviewed the patient's lab results. Lab Results 07/02/24 19:45: WBC 13.0 D, RBC 4.29, Hgb 13.6, Hct 41.0, MCV 95.4, MCH 31.7 H, MCHC 33.2, RDW 13.7, Plt Count 298, MPV 8.5, Neut % (Auto) 67.4, Lymph % (Auto) 26.0, [place] % (Auto) 4.2, Eos % (Auto) 1.8, Baso % (Auto) 0.6, Neut # (Auto) 8.8 H, Lymph # (Auto) 3.4, [place] # (Auto) 0.6, Eos # (Auto) 0.2, Baso # (Auto) 0.1, Sodium 138, Potassium 3.6, Chloride 105, Carbon Dioxide 28, Anion Gap 8.6, BUN 8, Creatinine 0.80, Estimated Creat Clear 120, Estimated GFR 91, Est GFR ( Amer) 111, Glucose 88, Lactate 0.7, Calcium 8.9, Total Bilirubin 0.5, AST 39 H, ALT 26, Alkaline Phosphatase 69, C-Reactive Protein 24.2 H, Total Protein 7.3, Albumin 4.4, Globulin 2.9, Albumin/Globulin Ratio 1.5, Lipase 40, Serum HCG, Qual Negative 07/02/24 20:20: Urine Color [place], Urine Appearance Slightly cloudy, Urine pH 6.5, Ur Specific [place] 1.010, Urine Protein 1+, Urine Glucose (UA) 1+, Urine Ketones 3+, Urine Blood Trace-i, Urine Nitrate Positive, Urine Bilirubin 2+ A, Urine Urobilinogen 4.0, Ur Leukocyte Esterase Trace, Urine RBC 3-5, Urine WBC 5-10, Ur Squamous Epith Cells 5-10, Urine Bacteria 1+, Urine Opiates Screen Positive H, Urine Methadone Screen Negative, Ur Barbituates Screen Negative, Ur Phencyclidine Scrn Negative, Ur Amphetamines Screen Negative, U Benzodiazepines Scrn Negative, Urine Cocaine Screen Negative, U Marijuana (THC) Screen Positive H 07/02/24 19:45 07/02/24 19:45 Orders (Tests/Meds): ED MEDICATIONS Generic Name Dose Route Start Last Admin Trade Name Freq PRN Reason Stop Dose Admin Ampicillin Sodium/Sulbactam 100 mls @ 200 mls/hr 07/02/24 21:43 Sodium 3 gm/ Sodium Chloride IV 07/02/24 21:44 ONCE ONE Sodium Chloride 10 ml 07/02/24 20:49 07/02/24 20:49 Sodium Chloride 0.9% 10ml Syr (Rad Only) IV 08/01/24 20:48 10 ml NEEDED PRN Administration Maintain IV Site Discontinued Medications Generic Name Dose Route Start Last Admin Trade Name Freq PRN Reason Stop Dose Admin Acetaminophen 1,000 mg 07/02/24 19:34 07/02/24 20:00 Acetaminophen 1,000mg/100ml Vial IV 07/02/24 19:35 1,000 mg ONCE ONE Administration Dicyclomine HCl 20 mg 07/02/24 19:34 07/02/24 20:00 Dicyclomine 10mg Capsule PO 07/02/24 19:35 20 mg ONCE ONE Administration Lactated Ringer's 1,000 mls @ 999 mls/hr 07/02/24 19:27 07/02/24 20:00 Lactated Ringer's 1000 Ml Bag IV 07/02/24 20:27 999 mls/hr .Q1H1M ONE Administration Iopamidol 75 ml 07/02/24 20:49 07/02/24 20:50 Iopamidol-370 (76%);100ml Bottle IV 07/02/24 20:50 75 ml ONCE ONE Administration Ketorolac Tromethamine 15 mg 07/02/24 19:34 07/02/24 20:00 Ketorolac 30mg/Ml Vial IV 07/02/24 19:35 15 mg ONCE ONE Administration Metoclopramide HCl 5 mg 07/02/24 19:34 07/02/24 20:00 Metoclopramide Hcl 10mg/2ml Vial IVP 07/02/24 19:35 5 mg ONCE ONE Administration ORDERS Category Date Time Status CT abdomen pelvis w con Stat Cat Scan 07/02/24 19:27 Completed CRP [C-Reactive Protein] Stat Lab 07/02/24 19:45 Completed Complete Blood Count Auto Diff Stat Lab 07/02/24 19:45 Completed Comprehensive Metabolic Panel Stat Lab 07/02/24 19:45 Completed Lactic Acid Stat Lab 07/02/24 19:45 Completed Lipase Stat Lab 07/02/24 19:45 Completed Serum [HCG Qualitative, Serum] Stat Lab 07/02/24 19:45 Completed UA [Urinalysis and Microscopic] Stat Lab 07/02/24 20:20 Completed UDS [Drug Screen,Urine] Stat Lab 07/02/24 20:20 Completed Urine Culture Stat Micro 07/02/24 20:20 Received Medical Decision Narrative: In summary, this patient is a 18-year-old female presenting to the Emergency Department for evaluation of abdominal pain. Differential diagnoses considered include but are not limited to constipation, colitis, cystitis, pyelonephritis, appendicitis, PID. Ruling out the most morbid conditions drove assessment. I reviewed patient's past medical records and noted her 2 recent evaluations here for similar issues as per HPI. On exam, the patient is lying in bed with reassuring vital signs on cardiac telemetry. Abdominal exam is benign. Workup included CBC, CMP, lipase, lactic acid, urinalysis, gonorrhea and chlamydia, test, CRP, and CT abdomen pelvis with IV contrast. She was given a bolus of IV fluids as well as IV Toradol, acetaminophen, Bentyl, and Reglan for symptomatic improvement. I independently interpreted CT scan prior to the radiologist read and noted enlarged gallbladder with sludge. She does still have pelvic free fluid. Please see their read for final interpretation. Labs were obtained that demonstrated new leukocytosis and elevated CRP, but otherwise reassuring labs. Urine is contaminated with Azo.. On reassessment, patient had some improvement after administration of interventions above, but still complains of pain. She does have focal right upper quadrant tenderness with positive Tellez sign with deep palpation. Ultimately given that she has new findings of gallbladder sludge, leukocytosis, and right upper quadrant pain in the setting of persistent abdominal pain, nausea, vomiting for several days, I feel that she would benefit from admission for continued monitoring and potential surgical consultation. I started the patient on IV Unasyn. I had an interactive discussion with the hospitalist who admitted her in stable condition. Patient and family agreeable with this plan. Critical Care Critical Care Time Critical Care Time: No
[2024-07-02 19:58] LABS: Basophils # 0.1 K/mm3 (0-0.2); Basophils % 0.6 % (0.1-2.0); Eosinophils # 0.2 K/mm3 (0.0-0.4); Eosinophils % 1.8 % (0.1-12.0); Hemoglobin 13.6 g/dL (12.2-16.2); Lymphocytes # 3.4 K/mm3 (0.7-4.5); Mean Corpuscular HGB Conc 33.2 g/dL (31.8-35.4); Mean Corpuscular Hemoglobin 31.7 pg (27.0-31.2); Mean Corpuscular Volume 95.4 fl (81-99); Mean Platelet Volume 8.5 fl (7.4-10.4); Monocytes # 0.6 K/mm3 (0.1-1.0); Monocytes % 4.2 % (1.7-9.3); Neutrophils # 8.8 K/mm3 (1.8-7.8); Neutrophils % 67.4 % (37.0-80.0); Platelet Count 298 K/mm3 (142-424); Red Blood Count 4.29 M/mm3 (4.20-5.40); Red Cell Distribution Width 13.7 % (11.5-17.5)
[2024-07-02] MEDS: DICYCLOMINE 10MG CAPSULE 20 MG PO (20:00)
[2024-07-02] MEDS: LACTATED RINGERS 1000ML 1,000 ML 999 ML IV (20:00)
[2024-07-02] MEDS: KETOROLAC 30MG/ML VIAL 15 MG IV (20:00)
[2024-07-02] MEDS: METOCLOPRAMIDE HCL 10MG/2ML VIAL 5 MG IVP (20:00)
[2024-07-02] MEDS: ACETAMINOPHEN 1,000MG/100ML VIAL 1000 MG IV (20:00)
[2024-07-02 20:09] LABS: Albumin Level 4.4 g/dl (3.5-5.0); Chloride 105 mmol/L (98-107); Sodium 138 mmol/L (136-145)
[2024-07-02 20:12] LABS: Alanine Aminotransferase 26 U/L (12-78); Alkaline Phosphatase 69 U/L (38-126); Aspartate Amino Transferase 39 U/L (14-36); Bilirubin,Total 0.5 mg/dl (0.2-1.3); Blood Urea Nitrogen 8 mg/dl (7-17); Carbon Dioxide 28 mmol/L (22.0-30.0); Creatinine Clearance Estimated 120 mL/min (50-200); Estimated Glomerular Filt Rate 91 ml/min (>60); GFR (African American) 111 ML/MIN (>60); Lipase 40 U/L (23-300); Total Protein,Serum 7.3 g/dl (6.3-8.2)
[2024-07-02 20:13] LABS: Calcium 8.9 mg/dl (8.4-10.2); Glucose 88 mg/dl (74-100); Lactic Acid 0.7 mmol/L (0.7-2.1)
[2024-07-02 20:18] LABS: HCG Qualitative, Serum Negative (Negative)
[2024-07-02 20:20] LABS: C-Reactive Protein 24.2 mg/L (0-4)
[2024-07-02 20:21] LABS: Anion Gap 8.6 mEq/L (5-15); Potassium 3.6 mmoL/L (3.5-5.1)
[2024-07-02 20:29] LABS: Microscopic, Urine URINE MICROSCOPIC (MICROSCOPIC)
[2024-07-02 20:32] LABS: Appearance,Urine Slightly Cloudy (Clear); Color,Urine Orange (Yellow); Leukocyte Esterase,Urine TRACE (Negative)
[2024-07-02 20:33] LABS: Bilirubin,Urine 2+ (Negative); PH,Urine 6.5 (5.0-8.5)
[2024-07-02 20:34] LABS: Blood, Urine TRACE-I (Negative); Glucose,Urine (UA) 1+ (Negative); Ketones,Urine 3+ (Negative); Nitrate,Urine POSITIVE (Negative); Protein,Urine 1+ (Negative)
[2024-07-02 20:42] LABS: Amphetamine/Metha Screen,Urine Negative ng/ml (<1000); Benzodiazepines Screen,Urine Negative ng/ml (<200)
[2024-07-02 20:43] LABS: Bacteria,Urine 1+ /lpf; Barbiturates Screen,Urine Negative ng/ml (<200)
[2024-07-02 20:44] LABS: Cannabinoid Screen,Urine Positive ng/ml (<50); Cocaine Screen,Urine Negative ng/ml (<300)
[2024-07-02 20:45] LABS: Methadone Screen,Urine Negative ng/ml (<300); Opiate Screen,Urine Positive ng/ml (<300)
[2024-07-02 20:46] LABS: Phencyclidine Screen,Urine Negative ng/ml (<25)
[2024-07-02] MEDS: SODIUM CHLORIDE 0.9% 10ML SYR (RAD ONLY) 10 ML IV (20:49)
[2024-07-02] MEDS: IOPAMIDOL-370 (76%);100ML BOTTLE 75 ML IV (20:50)
[2024-07-02 20:57] LABS: Albumin/Globulin Ratio 1.5 (1.1-1.8); Globulin 2.9 g/dL (1.3-3.2)
--- NOTE | 2024-07-02 21:48 | PC.NURSE ---
House notified for admission
[2024-07-02] MEDS: AMPICILLIN SODIUM/SULBACTAM 3 GM in 0.9 % SODIUM CHLORIDE 100 ML IV (22:02)
--- NOTE | 2024-07-02 22:06 | PC.NURSE ---
Report called to Steffanie SHEARER. Pt. to be admitted to room 211.
--- NOTE | 2024-07-02 22:26 | PC.NURSE ---
Patient arrived to floor via wheelchair from ED at 22:22.
--- NOTE | 2024-07-02 22:31 | EXP.HP ---
History of Present Illness *Admission Date: 07/02/24 *Reason for visit:: Biliary colic, with nausea vomiting. For 1 week *History of present illness: This patient who has chronic urinary cystitis noted that her pain was different and began to have nausea with some vomiting. Pain to upper right quadrant and has been there for a week this is her third visit to the emergency room.. Scan showed biliary sludge and exam showed tenderness in the upper right quadrant at the vicinity of the gallbladder to light palpation. After speaking with the emergency room doctor we will go ahead and admit and consult general surgery for evaluation and possible cholecystectomy. Noted family history mother had her gallbladder removed at about the same age. [facility] Disclaimer: The information contained in this section may have been updated after the patient was seen, as this information can be updated by other users. 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 Urinary tract infection due to Enterococcus ADHD (attention deficit hyperactivity disorder), combined type Chronic post-traumatic stress disorder (PTSD) Generalized anxiety disorder with panic attacks MDD (major depressive disorder), recurrent episode, moderate Anxiety and depression Dyspareunia Recurrent UTI Encounter for smoking cessation counseling Nicotine dependence Myofasciitis Depression Hearing loss Surgical History (Updated 07/02/24 @ 22:39 by Steffanie Jackson RN) History of placement of ear tubes [place] teeth extracted Family History (Updated 07/02/24 @ 22:34 by Jose Willoughby APRN) Other No significant family history Social History Smoking Status: Current every day smoker tobacco type: e-cigarettes alcohol intake: current alcohol intake frequency: holidays/special occasions only substance use type: marijuana (Joanne reports smoking multiple blunts per day for calmness.) current occupational status: unemployed Travel in the last 8 weeks: None Review of Systems Review of Systems Review of systems:: pertinent systems reviewed and negative unless documented below Constitutional Constitutional: Reports system reviewed and no additional complaints, except as documented and Reports poor appetite Eyes Eyes: Reports system reviewed and no additional complaints, except as documented ENT Ears, Nose, Mouth, and Throat: Reports system reviewed and no additional complaints, except as documented *Cardiovascular Cardiovascular: Reports system reviewed and no additional complaints, except as documented *Respiratory Respiratory: Reports system reviewed and no additional complaints, except as documented *Gastrointestinal Gastrointestinal: Reports as per HPI, Reports abdominal pain, Reports nausea and Reports vomiting *Genitourinary Genitourinary: Reports as per HPI, Reports dysuria and Reports pelvic pain *Musculoskeletal Musculoskeletal: Reports system reviewed and no additional complaints, except as documented and Reports as per HPI Integumentary/Breasts Skin/Breast: Reports system reviewed and no additional complaints, except as documented *Neurologic Neurologic: Reports system reviewed and no additional complaints, except as documented Psychiatric Psychiatric: Reports as per HPI and Reports other (ptsd, chronic bladder pain/issues) Endocrine Endocrine: Reports system reviewed and no additional complaints, except as documented Hematologic/Lymphatic Hematologic/Lymphatic: Reports system reviewed and no additional complaints, except as documented Allergic/Immunologic Allergic/Immunologic: Reports system reviewed and no additional complaints, except as documented Meds Home Medications and Allergies Home Medications ?Medication ?Instructions ?Recorded ?Confirmed ?Type venlafaxine 150 mg 150 mg PO DAILY #30 caps 05/04/24 07/02/24 Rx capsule,extended release 24 hr (Effexor XR) benzoyl peroxide 5 % topical 1 applic topical DAILY 06/07/24 07/03/24 History cleanser nitrofurantoin 100 mg PO BID 7 days #14 caps 06/29/24 07/02/24 Rx monohydrate/macrocrystals 100 mg capsule (Macrobid) cephalexin 500 mg capsule 500 mg PO QID 07/03/24 07/03/24 History cyclobenzaprine 10 mg tablet 10 mg PO TIDP PRN muscle spasm 07/03/24 07/03/24 History ondansetron HCl 4 mg tablet 4 mg PO Q8HP PRN Nausea And 07/03/24 07/03/24 History Vomiting propranolol 20 mg tablet 20 mg PO TIDP PRN anxiety 07/03/24 07/03/24 History New Prescriptions to Start Prescriptions: Allergies Allergy/AdvReac Type Severity Reaction Status Date / Time ciprofloxacin Allergy Unknown Vomiting Verified 06/29/24 11:17 ceftriaxone AdvReac Unknown Dizziness Verified 06/29/24 11:17 Exam Data for Last 24 hours Vital signs and Labs for Last 24 Hours: Temp Pulse Resp BP Pulse Ox O2 Del Method 98.4 F 62 16 110/67 98 Room Air 07/02/24 22:27 07/02/24 22:27 07/02/24 22:27 07/02/24 22:27 07/02/24 22:27 07/02/24 22:27 Laboratory Results - last 24 hr 07/02/24 19:45: WBC 13.0 D, RBC 4.29, Hgb 13.6, Hct 41.0, MCV 95.4, MCH 31.7 H, MCHC 33.2, RDW 13.7, Plt Count 298, MPV 8.5, Neut % (Auto) 67.4, Lymph % (Auto) 26.0, [place] % (Auto) 4.2, Eos % (Auto) 1.8, Baso % (Auto) 0.6, Neut # (Auto) 8.8 H, Lymph # (Auto) 3.4, [place] # (Auto) 0.6, Eos # (Auto) 0.2, Baso # (Auto) 0.1, Sodium 138, Potassium 3.6, Chloride 105, Carbon Dioxide 28, Anion Gap 8.6, BUN 8, Creatinine 0.80, Estimated Creat Clear 120, Estimated GFR 91, Est GFR ( Amer) 111, Glucose 88, Lactate 0.7, Calcium 8.9, Total Bilirubin 0.5, AST 39 H, ALT 26, Alkaline Phosphatase 69, C-Reactive Protein 24.2 H, Total Protein 7.3, Albumin 4.4, Globulin 2.9, Albumin/Globulin Ratio 1.5, Lipase 40, Serum HCG, Qual Negative 07/02/24 20:20: Urine Color [place], Urine Appearance Slightly cloudy, Urine pH 6.5, Ur Specific [place] 1.010, Urine Protein 1+, Urine Glucose (UA) 1+, Urine Ketones 3+, Urine Blood Trace-i, Urine Nitrate Positive, Urine Bilirubin 2+ A, Urine Urobilinogen 4.0, Ur Leukocyte Esterase Trace, Urine RBC 3-5, Urine WBC 5-10, Ur Squamous Epith Cells 5-10, Urine Bacteria 1+, Urine Opiates Screen Positive H, Urine Methadone Screen Negative, Ur Barbituates Screen Negative, Ur Phencyclidine Scrn Negative, Ur Amphetamines Screen Negative, U Benzodiazepines Scrn Negative, Urine Cocaine Screen Negative, U Marijuana (THC) Screen Positive H I & O for Last 24 hours: Intake & Output 06/29/24 06/30/24 07/01/24 07/02/24 23:59 23:59 23:59 23:59 Weight 68.538 kg Radiology Reports for the Last 24 Hours: Biliary sludge. Constitutional Constitutional: mild distress Comments: Appears healthy *Routine HEENT Exam Head: Present normocephalic and atraumatic Eye: Present EOMI and PERRL ENT: Present mucous membranes moist *Routine Neck Exam Neck: Present supple and full ROM *Routine Respiratory Exam Respiratory: Present CTA bilaterally, normal respiratory effort, able to speak in complete sentences and symmetric chest movement *Routine Cardiovascular Exam Cardiovascular: Present RRR, Normal S1 and Normal S2 *Routine Abdominal Exam Abdominal: Present soft, normoactive bowel sounds and tenderness (Very mild tenderness right lower quadrant at about the area of the ovary, significant tenderness to the right upper quadrant at the area of the gallbladder on deep palpation) *Routine Rectal Exam Rectal:: deferred *Routine Genitalia Exam Genitalia:: deferred *Routine Extremities Exam Extremities: Present full ROM and pulses intact Routine Back/Spine/Pelvis Exam Back/Spine: Present full ROM *Routine Skin Exam Skin: Present intact, warm and normal turgor *Routine Neurological Exam Neurological: Present alert, oriented X3, CN II-XII intact, normal reflexes, moving all extremities and normal speech Routine Psychiatric Exam Psychiatric: Present normal affect and normal thought process Additional Findings:: Pleasant young lady who answers questions well, is a good historian. H&P: Result Impressions 1. Abdominal pain with exam consistent with biliary sludge, Imaging and Cardiology CT scan - abdomen: Status: image reviewed by me Assessment and Plan *Assessment and plan (1) Intractable abdominal pain: Status: Acute Category: Medical Code(s): R10.9 - Unspecified abdominal pain (2) Gallbladder sludge: Status: Deleted Category: Medical Code(s): K82.8 - Other specified diseases of gallbladder (3) Free fluid in pelvis: Status: Acute Category: Medical Code(s): R18.8 - Other ascites (4) Marijuana use, continuous: Status: Acute Category: Medical Code(s): F12.90 - Cannabis use, unspecified, uncomplicated (5) Interstitial cystitis: Status: Acute Category: Medical Code(s): N30.10 - Interstitial cystitis (chronic) without hematuria (6) Recurrent UTI: Status: Acute Category: Medical Code(s): N39.0 - Urinary tract infection, site not specified Plan 18-year-old female who presents with recurring abdominal pain, third time in 3 weeks to the ER. Exam indicative of gallbladder disease. Case discussed with ER physician, request admission for surgical eval. Medicine agreed to admit. Started empirically on Unasyn overnight. Surgery to evaluate in the morning. NPO. Problems addressed as follows: Gallbladder sludge Intractable abdominal pain -Surgical evaluation in the morning. Anticipate possible cholecystectomy. -CT showing sludge. White count and liver enzymes normal. -Empiric antibiotics as above with Unasyn. Zofran for nausea Repeat CBC, CMP, magnesium ordered for the morning. test negative N.p.o. Full code Rounded on patient after nurse practitioner. Personally examined and interviewed patient. Agree with exam findings and care plan as documented.
[2024-07-02] MEDS: 0.9 % SODIUM CHLORIDE 1000ML 1,000 ML 50 ML IV (22:46)
[2024-07-02] MEDS: ONDANSETRON 4MG/2ML VIAL 4 MG IV (23:11)
[2024-07-03] VITALS (21 sets, daily range): BP systolic 99–132; BP diastolic 52–80; PULSE 65–80; RESP 16–19; TEMP 36.4–43; O2SAT 95–100; BMI 25.2
[2024-07-03 01:42] LABS: Urine Pregnancy, HCG Qual. Negative (Negative)
[2024-07-03] MEDS: PROMETHAZINE HCL 12.5MG TABLET 12.5 MG PO (02:55)
[2024-07-03] MEDS: MORPHINE 2MG/ML SYRINGE 2 MG IV ×6 (06:45→23:32)
[2024-07-03] MEDS: ONDANSETRON 4MG/2ML VIAL 4 MG IV (06:46)
[2024-07-03 07:33] LABS: Basophils # 0.1 K/mm3 (0-0.2); Basophils % 0.4 % (0.1-2.0); Eosinophils # 0.1 K/mm3 (0.0-0.4); Eosinophils % 0.6 % (0.1-12.0); Hematocrit 38.8 % (37.0-47.0); Hemoglobin 12.6 g/dL (12.2-16.2); Lymphocytes # 1.5 K/mm3 (0.7-4.5); Lymphocytes % 12.1 % (10-50); Mean Corpuscular HGB Conc 32.5 g/dL (31.8-35.4); Mean Corpuscular Hemoglobin 31.3 pg (27.0-31.2); Mean Corpuscular Volume 96.5 fl (81-99); Mean Platelet Volume 8.7 fl (7.4-10.4); Monocytes # 0.6 K/mm3 (0.1-1.0); Monocytes % 4.4 % (1.7-9.3); Neutrophils # 10.4 K/mm3 (1.8-7.8); Neutrophils % 82.5 % (37.0-80.0); Platelet Count 254 K/mm3 (142-424); Red Blood Count 4.02 M/mm3 (4.20-5.40); Red Cell Distribution Width 13.7 % (11.5-17.5); White Blood Count 12.7 K/mm3 (4.5-13.0)
[2024-07-03 07:41] LABS: Albumin Level 3.9 g/dl (3.5-5.0); Chloride 107 mmol/L (98-107); Potassium 4.2 mmoL/L (3.5-5.1); Sodium 138 mmol/L (136-145)
[2024-07-03 07:43] LABS: Alanine Aminotransferase 58 U/L (12-78); Anion Gap 9.2 mEq/L (5-15); Aspartate Amino Transferase 72 U/L (14-36); Blood Urea Nitrogen 5 mg/dl (7-17); Carbon Dioxide 26 mmol/L (22.0-30.0); Creatinine Clearance Estimated 139 mL/min (50-200); Estimated Glomerular Filt Rate 107 ml/min (>60); GFR (African American) 129 ML/MIN (>60)
[2024-07-03 07:44] LABS: Albumin/Globulin Ratio 1.4 (1.1-1.8); Alkaline Phosphatase 70 U/L (38-126); Bilirubin,Total 0.6 mg/dl (0.2-1.3); Calcium 8.1 mg/dl (8.4-10.2); Globulin 2.8 g/dL (1.3-3.2); Glucose 83 mg/dl (74-100); Total Protein,Serum 6.7 g/dl (6.3-8.2)
--- NOTE | 2024-07-03 08:14 | PC.NURSE ---
spoke with Surgeon career technical education instructor to notify of consult.
--- NOTE | 2024-07-03 08:42 | PC.NURSE ---
Sx team paged at this time per .
--- NOTE | 2024-07-03 08:45 | P.CONS_ITS ---
History of Present Illness *Admission Date: 07/02/24 *Reason for visit:: Possible gallbladder disease *History of present illness: This is a 18-year-old female seen in consultation after being admitted for increasing abdominal pain. She has undergone evaluation crossing multiple emergency department visits without definitive etiology noted. Evaluation for possible gynecologic etiology has been completed. A CT scan revealed sludge versus non-calcified stones within the gallbladder but no definitive evidence of acute cholecystitis. She continues to have pain throughout the abdomen but states that it is worse in the mid lower abdomen and right upper quadrant. No jaundice. No fevers. Forwarded from admission H&P: This patient who has chronic urinary cystitis noted that her pain was different and began to have nausea with some vomiting. Pain to upper right quadrant and has been there for a week this is her third visit to the emergency room.. Scan showed biliary sludge and exam showed tenderness in the upper right quadrant at the vicinity of the gallbladder to light palpation. After speaking with the emergency room doctor we will go ahead and admit and consult general surgery for evaluation and possible cholecystectomy. Noted family history mother had her gallbladder removed at about the same age. [facility] Disclaimer: The information contained in this section may have been updated after the patient was seen, as this information can be updated by other users. 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 Urinary tract infection due to Enterococcus ADHD (attention deficit hyperactivity disorder), combined type Chronic post-traumatic stress disorder (PTSD) Generalized anxiety disorder with panic attacks MDD (major depressive disorder), recurrent episode, moderate Anxiety and depression Dyspareunia Recurrent UTI Encounter for smoking cessation counseling Nicotine dependence Myofasciitis Depression Hearing loss Surgical History (Updated 07/02/24 @ 22:39 by Steffanie Jackson RN) History of placement of ear tubes [place] teeth extracted Family History (Updated 07/02/24 @ 22:34 by Jose Willoughby APRN) No significant family history Social History Smoking Status: Current every day smoker tobacco type: e-cigarettes alcohol intake: current alcohol intake frequency: holidays/special occasions only substance use type: marijuana (Joanne reports smoking multiple blunts per day for calmness.) current occupational status: unemployed Travel in the last 8 weeks: None Review of Systems *Neurologic Neurologic: Reports system reviewed and no additional complaints, except as documented Meds Home Medications and Allergies Home Medications ?Medication ?Instructions ?Recorded ?Confirmed ?Type propranolol 20 mg tablet 20 mg PO TID PRN anxiety #90 tabs 03/15/24 07/02/24 Rx venlafaxine 150 mg 150 mg PO DAILY #30 caps 05/04/24 07/02/24 Rx capsule,extended release 24 hr (Effexor XR) cyclobenzaprine 10 mg tablet 10 mg PO TID PRN muscle spasm #90 05/17/24 07/02/24 Rx tabs benzoyl peroxide 5 % topical See Rx Instructions .Route .COMPLEX 06/07/24 07/02/24 History cleanser nitrofurantoin 100 mg PO BID 7 days #14 caps 06/29/24 07/02/24 Rx monohydrate/macrocrystals 100 mg capsule (Macrobid) dicyclomine 20 mg tablet 20 mg PO QID PRN abdominal pain 06/30/24 07/02/24 Rx #12 tabs ketorolac 10 mg tablet 10 mg PO Q8H PRN pain #12 tabs 06/30/24 07/02/24 Rx New Prescriptions to Start Prescriptions: Allergies Allergy/AdvReac Type Severity Reaction Status Date / Time ciprofloxacin Allergy Unknown Vomiting Verified 06/29/24 11:17 ceftriaxone AdvReac Unknown Dizziness Verified 06/29/24 11:17 Exam (Inpt) Vital signs and Labs for Last 24 Hours: Temp Pulse Resp BP Pulse Ox O2 Del Method 97.8 F 65 19 119/57 L 100 Room Air 07/03/24 07:34 07/03/24 07:34 07/03/24 07:34 07/03/24 07:34 07/03/24 07:34 07/03/24 07:34 Laboratory Results - last 24 hr 07/02/24 19:45: WBC 13.0 D, RBC 4.29, Hgb 13.6, Hct 41.0, MCV 95.4, MCH 31.7 H, MCHC 33.2, RDW 13.7, Plt Count 298, MPV 8.5, Neut % (Auto) 67.4, Lymph % (Auto) 26.0, [place] % (Auto) 4.2, Eos % (Auto) 1.8, Baso % (Auto) 0.6, Neut # (Auto) 8.8 H, Lymph # (Auto) 3.4, [place] # (Auto) 0.6, Eos # (Auto) 0.2, Baso # (Auto) 0.1, Sodium 138, Potassium 3.6, Chloride 105, Carbon Dioxide 28, Anion Gap 8.6, BUN 8, Creatinine 0.80, Estimated Creat Clear 120, Estimated GFR 91, Est GFR ( Amer) 111, Glucose 88, Lactate 0.7, Calcium 8.9, Total Bilirubin 0.5, A ST 39 H, ALT 26, Alkaline Phosphatase 69, C-Reactive Protein 24.2 H, Total Protein 7.3, Albumin 4.4, Globulin 2.9, Albumin/Globulin Ratio 1.5, Lipase 40, Serum HCG, Qual Negative 07/02/24 20:20: Urine Color [place], Urine Appearance Slightly cloudy, Urine pH 6.5, Ur Specific [place] 1.010, Urine Protein 1+, Urine Glucose (UA) 1+, Urine Ketones 3+, Urine Blood Trace-i, Urine Nitrate Positive, Urine Bilirubin 2+ A, Urine Urobilinogen 4.0, Ur Leukocyte Esterase Trace, Urine RBC 3-5, Urine WBC 5- 10, Ur Squamous Epith Cells 5-10, Urine Bacteria 1+, Urine HCG, Qual Negative, U rine Opiates Screen Positive H, Urine Methadone Screen Negative, Ur Barbituates Screen Negative, Ur Phencyclidine Scrn Negative, Ur Amphetamines Screen Negative, U Benzodiazepines Scrn Negative, Urine Cocaine Screen Negative, U Marijuana (THC) Screen Positive H 07/03/24 06:43: WBC 12.7, RBC 4.02 L, Hgb 12.6, Hct 38.8, MCV 96.5, MCH 31.3 H, MCHC 32.5, RDW 13.7, Plt Count 254, MPV 8.7, Neut % (Auto) 82.5 H, Lymph % (Auto) 12.1, [place] % (Auto) 4.4, Eos % (Auto) 0.6, Baso % (Auto) 0.4, Neut # (Auto) 10.4 H, Lymph # (Auto) 1.5, [place] # (Auto) 0.6, Eos # (Auto) 0.1, Baso # (Auto) 0.1, Sodium 138, Potassium 4.2, Chloride 107, Carbon Dioxide 26, Anion Gap 9.2, BUN 5 L D, Creatinine 0.70, Estimated Creat Clear 139, Estimated GFR 107, Est GFR ( Amer) 129, Glucose 83, Calcium 8.1 L, Total Bilirubin 0.6, AST 72 H D, ALT 58 D, Alkaline Phosphatase 70, Total Protein 6.7, Albumin 3.9 D, Globulin 2.8, Albumin/Globulin Ratio 1.4 I & O for Labs for Last 24 Hours: Intake & Output 06/30/24 07/01/24 07/02/24 07/03/24 11:59 11:59 11:59 11:59 Output Total 0 / 0 Balance 0 / 0 Weight 151 lb 1.607 oz Constitutional: no acute distress Head: Present normocephalic Neck: Present full ROM Respiratory: Absent respiratory distress Cardiac: Absent Tachycardia GI: Present tenderness (Mild to moderate tenderness throughout. Increased tenderness and mid lower abdomen. Exquisitely tender in right upper quadrant.) Results Labs 07/03/24 06:43 07/03/24 06:43 Labs: Laboratory Results - last 24 hr 07/02/24 19:45: WBC 13.0 D, RBC 4.29, Hgb 13.6, Hct 41.0, MCV 95.4, MCH 31.7 H, MCHC 33.2, RDW 13.7, Plt Count 298, MPV 8.5, Neut % (Auto) 67.4, Lymph % (Auto) 26.0, [place] % (Auto) 4.2, Eos % (Auto) 1.8, Baso % (Auto) 0.6, Neut # (Auto) 8.8 H, Lymph # (Auto) 3.4, [place] # (Auto) 0.6, Eos # (Auto) 0.2, Baso # (Auto) 0.1, Sodium 138, Potassium 3.6, Chloride 105, Carbon Dioxide 28, Anion Gap 8.6, BUN 8, Creatinine 0.80, Estimated Creat Clear 120, Estimated GFR 91, Est GFR ( Amer) 111, Glucose 88, Lactate 0.7, Calcium 8.9, Total Bilirubin 0.5, A ST 39 H, ALT 26, Alkaline Phosphatase 69, C-Reactive Protein 24.2 H, Total Protein 7.3, Albumin 4.4, Globulin 2.9, Albumin/Globulin Ratio 1.5, Lipase 40, Serum HCG, Qual Negative 07/02/24 20:20: Urine Color [place], Urine Appearance Slightly cloudy, Urine pH 6.5, Ur Specific [place] 1.010, Urine Protein 1+, Urine Glucose (UA) 1+, Urine Ketones 3+, Urine Blood Trace-i, Urine Nitrate Positive, Urine Bilirubin 2+ A, Urine Urobilinogen 4.0, Ur Leukocyte Esterase Trace, Urine RBC 3-5, Urine WBC 5- 10, Ur Squamous Epith Cells 5-10, Urine Bacteria 1+, Urine HCG, Qual Negative, U rine Opiates Screen Positive H, Urine Methadone Screen Negative, Ur Barbituates Screen Negative, Ur Phencyclidine Scrn Negative, Ur Amphetamines Screen Negative, U Benzodiazepines Scrn Negative, Urine Cocaine Screen Negative, U Marijuana (THC) Screen Positive H 07/03/24 06:43: WBC 12.7, RBC 4.02 L, Hgb 12.6, Hct 38.8, MCV 96.5, MCH 31.3 H, MCHC 32.5, RDW 13.7, Plt Count 254, MPV 8.7, Neut % (Auto) 82.5 H, Lymph % (Auto) 12.1, [place] % (Auto) 4.4, Eos % (Auto) 0.6, Baso % (Auto) 0.4, Neut # (Auto) 10.4 H, Lymph # (Auto) 1.5, [place] # (Auto) 0.6, Eos # (Auto) 0.1, Baso # (Auto) 0.1, Sodium 138, Potassium 4.2, Chloride 107, Carbon Dioxide 26, Anion Gap 9.2, BUN 5 L D, Creatinine 0.70, Estimated Creat Clear 139, Estimated GFR 107, Est GFR ( Amer) 129, Glucose 83, Calcium 8.1 L, Total Bilirubin 0.6, AST 72 H D, ALT 58 D, Alkaline Phosphatase 70, Total Protein 6.7, Albumin 3.9 D, Globulin 2.8, Albumin/Globulin Ratio 1.[address] scan - abdomen: report reviewed and image reviewed CT scan - pelvis: report reviewed and image reviewed Assessment and Plan *Assessment and plan (1) Acute cholecystitis: Problem Comment: Exquisitely tender in right upper quadrant. Left shift noted on CBC. Elevated AST. Elevated CRP. Status: Acute Category: Medical Code(s): K81.0 - Acute cholecystitis Plan: Laparoscopic cholecystectomy today I have discussed the risks and benefits including, but not limited to: Bleeding Infection Damage to surrounding tissue Inherent risks of sedation The patient agrees to proceed.
--- NOTE | 2024-07-03 09:28 | PC.NURSE ---
pt off floor with surgery
--- NOTE | 2024-07-03 09:52 | P.PNANES_ITS ---
[facility] Disclaimer: The information contained in this section may have been updated after the patient was seen, as this information can be updated by other users. 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 Urinary tract infection due to Enterococcus ADHD (attention deficit hyperactivity disorder), combined type Chronic post-traumatic stress disorder (PTSD) Generalized anxiety disorder with panic attacks MDD (major depressive disorder), recurrent episode, moderate Anxiety and depression Dyspareunia Recurrent UTI Encounter for smoking cessation counseling Nicotine dependence Myofasciitis Depression Hearing loss Surgical History (Updated 07/02/24 @ 22:39 by Steffanie Jackson RN) History of placement of ear tubes [place] teeth extracted Family History (Updated 07/02/24 @ 22:34 by Jose Willoughby APRN) Other No significant family history Social History Smoking Status: Current every day smoker tobacco type: e-cigarettes alcohol intake: current alcohol intake frequency: holidays/special occasions only substance use type: marijuana (Joanne reports smoking multiple blunts per day for calmness.) current occupational status: unemployed Travel in the last 8 weeks: None [facility] Anesthesia Checklist Patient Identification Patient Identification: Arm Band Structural Data Admitted From: Home Planned Operative Procedure/s: Laparoscopic Cholecystectomy Consent for Planned Operative Procedure(s) Verified: Yes Verified Documents: Surgical Consent and History and Physical NPO Status Verified Time NPO: 00:00 Additional verifications Anesthesia Reactions: No Airway Assessment Mallampati Score:: Class I C-Spine Mobility Assessed: Yes TMJ Mobility Assessed: Yes Dentition: Good Dentition Neurological Assessment Level of Consciousness: Awake, Alert and Appropriate Anesthesia Plan Anesthesia Risk discussed: Yes Anesthesia Plan: Verified ASA Class: II Anesthesia Type: General
[2024-07-03] MEDS: SODIUM CHLORIDE IRRIG SOLUTION 3,000 ML 25 ML IR (09:53)
[2024-07-03] MEDS: LIDOCAINE 1% 20ML MDV 20 ML IJ (09:53)
[2024-07-03] MEDS: CLINDAMYCIN PHOSPHATE/D5W 900 MG/50 ML PIGGYBACK 100 MG IV (09:53)
--- NOTE | 2024-07-03 10:31 | P.OP_ITS ---
Date of procedure: 07/03/24 Pre-op Diagnosis:: Acute cholecystitis Post-op Diagnosis:: Same Procedure performed:: Laparoscopic cholecystectomy Surgeon:: Berto Jean MD [employer]ER:: Kyler Rayo Anesthesia: GETAleisha Estimated blood loss (mL): 15 Operative findings:: Significant gallbladder distention Mild serosal weeping Mild wall thickening Significant infundibular thickening/fat stranding Operative note:: After informed consent was obtained, the patient was taken to the operating room and placed in the supine position. General anesthesia was induced and the abdomen was prepped and draped in a sterile fashion. After infiltration with local anesthetic an infraumbilical incision was made. A Veress needle was placed in position. The abdomen was insufflated. A 5 mm optical trocar was placed in position. Under direct visualization, a 12 mm trocar was placed in the subxiphoid position and 2 additional 5 mm trocars were placed in the right upper quadrant. The gallbladder was elevated up and over the liver margin. The tissue around the cystic duct was carefully dissected. 3 clips were placed proximally and the duct was transected with harmonic esther. Harmonic esther were then utilized to dissect the gallbladder away from the liver margin with careful attention to the control of the cystic artery. The gallbladder was placed in a retrieval bag and removed through the subxiphoid trocar site. The right upper quadrant was thoroughly irrigated. No active bleeding or bile leak was noted. Fascia at the subxiphoid trocar site was reapproximated utilizing the NeoClose device. The remaining trocars were removed. All wounds were irrigated and skin was closed with 4-0 Monocryl in a subcuticular fashion. Steri-Strips were applied. The patient's anesthetic agents were reversed and extubation was completed prior to transfer to recovery in stable condition. Condition: stable Disposition: PACU Specimens:: Gallbladder and contents Complications:: No immediate
--- NOTE | 2024-07-03 10:41 | EXP.ANES.I ---
[facility] Anesthesia Record Part I Anesthesia Record I Intake, IV Amount: 1,100 Hydration: Adequate Estimated blood loss (mL): 10 Urine output (mL): 0 Blood Products used (#): none Blood Pressure: 102/61 SaO2: 95 Pulse Rate: 69 Airway Patency: Patent Respiratory Rate: 16 Temperature: 98.8 F Patient is:: Drowsy and Stable Stable to PACU at:: 10:40
--- NOTE | 2024-07-03 10:48 | EXP.ACUTE.PN ---
Subjective *Date: 07/03/24 *Time: 17:00 Interval history: Taken surgery this morning. Gallbladder removed. Concern for serosal weeping. Significant inflammation per surgery. Patient feeling better after procedure. Has pain at surgical sites but no significant abdominal pain. Afebrile. On room air. Medical Exam Vital signs and Labs for Last 24 Hours: Vital Signs Temp Pulse Pulse Resp BP BP Pulse Ox 07/03/24 10:42 98.8 F 69 16 102/61 L 07/03/24 10:40 97.7 F 75 16 102/62 L 97 07/03/24 09:00 07/03/24 09:00 07/03/24 08:00 07/03/24 07:34 97.8 F 65 19 119/57 L 100 07/03/24 06:50 07/03/24 05:00 07/03/24 04:00 97.6 F 80 16 125/80 98 07/03/24 03:00 07/03/24 01:00 07/02/24 23:17 07/02/24 23:00 07/02/24 22:27 98.4 F 62 16 110/67 98 07/02/24 22:13 98.4 F 62 20 110/67 07/02/24 22:11 98.4 F 62 20 110/67 98 07/02/24 19:32 98.4 F 66 18 170/85 H 98 07/02/24 19:27 66 20 108/61 L 97 07/02/24 19:15 74 18 111/84 98 07/02/24 18:57 98.4 F 62 20 111/84 97 O2 Del Method 07/03/24 10:42 07/03/24 10:40 Room Air 07/03/24 09:00 Room Air 07/03/24 09:00 Room Air 07/03/24 08:00 Room Air 07/03/24 07:34 Room Air 07/03/24 06:50 Room Air 07/03/24 05:00 Room Air 07/03/24 04:00 Room Air 07/03/24 03:00 Room Air 07/03/24 01:00 Room Air 07/02/24 23:17 Room Air 07/02/24 23:00 Room Air 07/02/24 22:27 Room Air 07/02/24 22:13 Room Air 07/02/24 22:11 Room Air 07/02/24 19:32 07/02/24 19:27 Room Air 07/02/24 19:15 Room Air 07/02/24 18:57 Room Air Intake and Output 07/02/24 07/03/24 07/03/24 23:59 07:59 15:59 Intake Total 1100 / 1100 Output Total 0 / 0 0 / 0 Balance 0 / 1100 1100 / 1100 Intake: Intake, Total IV Amount 1100 / 1100 Output: Output, Urine Amount 0 / 0 0 / 0 Other: Number of Voids 0 Number of Unmeasured Voids 1 2 Weight 68.538 kg 68.538 kg Patient Weight 07/03/24 23:59 Weight 68.538 kg Laboratory Results - last 24 hr 07/02/24 19:45: WBC 13.0 D, RBC 4.29, Hgb 13.6, Hct 41.0, MCV 95.4, MCH 31.7 H, MCHC 33.2, RDW 13.7, Plt Count 298, MPV 8.5, Neut % (Auto) 67.4, Lymph % (Auto) 26.0, [place] % (Auto) 4.2, Eos % (Auto) 1.8, Baso % (Auto) 0.6, Neut # (Auto) 8.8 H, Lymph # (Auto) 3.4, [place] # (Auto) 0.6, Eos # (Auto) 0.2, Baso # (Auto) 0.1, Sodium 138, Potassium 3.6, Chloride 105, Carbon Dioxide 28, Anion Gap 8.6, BUN 8, Creatinine 0.80, Estimated Creat Clear 120, Estimated GFR 91, Est GFR ( Amer) 111, Glucose 88, Lactate 0.7, Calcium 8.9, Total Bilirubin 0.5, AST 39 H, ALT 26, Alkaline Phosphatase 69, C-Reactive Protein 24.2 H, Total Protein 7.3, Albumin 4.4, Globulin 2.9, Albumin/Globulin Ratio 1.5, Lipase 40, Serum HCG, Qual Negative 07/02/24 20:20: Urine Color [place], Urine Appearance Slightly cloudy, Urine pH 6.5, Ur Specific [place] 1.010, Urine Protein 1+, Urine Glucose (UA) 1+, Urine Ketones 3+, Urine Blood Trace-i, Urine Nitrate Positive, Urine Bilirubin 2+ A, Urine Urobilinogen 4.0, Ur Leukocyte Esterase Trace, Urine RBC 3-5, Urine WBC 5-10, Ur Squamous Epith Cells 5-10, Urine Bacteria 1+, Urine HCG, Qual Negative, Urine Opiates Screen Positive H, Urine Methadone Screen Negative, Ur Barbituates Screen Negative, Ur Phencyclidine Scrn Negative, Ur Amphetamines Screen Negative, U Benzodiazepines Scrn Negative, Urine Cocaine Screen Negative, U Marijuana (THC) Screen Positive H 07/03/24 06:43: WBC 12.7, RBC 4.02 L, Hgb 12.6, Hct 38.8, MCV 96.5, MCH 31.3 H, MCHC 32.5, RDW 13.7, Plt Count 254, MPV 8.7, Neut % (Auto) 82.5 H, Lymph % (Auto) 12.1, [place] % (Auto) 4.4, Eos % (Auto) 0.6, Baso % (Auto) 0.4, Neut # (Auto) 10.4 H, Lymph # (Auto) 1.5, [place] # (Auto) 0.6, Eos # (Auto) 0.1, Baso # (Auto) 0.1, Sodium 138, Potassium 4.2, Chloride 107, Carbon Dioxide 26, Anion Gap 9.2, BUN 5 L D, Creatinine 0.70, Estimated Creat Clear 139, Estimated GFR 107, Est GFR ( Amer) 129, Glucose 83, Calcium 8.1 L, Total Bilirubin 0.6, AST 72 H D, ALT 58 D, Alkaline Phosphatase 70, Total Protein 6.7, Albumin 3.9 D, Globulin 2.8, Albumin/Globulin Ratio 1.4 I & O for Labs for Last 24 Hours: Intake & Output 06/30/24 07/01/24 07/02/24 07/03/24 23:59 23:59 23:59 23:59 Intake Total 1100 / 1100 Output Total 0 / 0 Balance 1100 / 1100 Weight 68.538 kg 68.538 kg Constitutional: Present no acute distress, average body habitus and cooperative Respiratory: Present normal respiratory effort; Absent rhonchi, wheezes or crackles Cardiac: Present Reg Rate and Rhythm GI: Present soft, tenderness (Mild, at surgical site) and normal bowel sounds; Absent distention Extremities: Present normal inspection and full ROM Skin: Present intact; Absent erythema Neuro: Present Grossly Intact, alert, awake, oriented x 3 and moves all extremities Assessment and Plan *Assessment and plan (1) Acute cholecystitis: Problem Comment: Exquisitely tender in right upper quadrant. Left shift noted on CBC. Elevated AST. Elevated CRP. Status: Acute Category: Medical Code(s): K81.0 - Acute cholecystitis (2) Intractable abdominal pain: Status: Acute Category: Medical Code(s): R10.9 - Unspecified abdominal pain (3) Gallbladder sludge: Status: Deleted Category: Medical Code(s): K82.8 - Other specified diseases of gallbladder (4) Free fluid in pelvis: Status: Acute Category: Medical Code(s): R18.8 - Other ascites (5) Marijuana use, continuous: Status: Acute Category: Medical Code(s): F12.90 - Cannabis use, unspecified, uncomplicated (6) Interstitial cystitis: Status: Acute Category: Medical Code(s): N30.10 - Interstitial cystitis (chronic) without hematuria (7) Recurrent UTI: Status: Acute Category: Medical Code(s): N39.0 - Urinary tract infection, site not specified Plan 18-year-old female who presents with recurring abdominal pain, third time in 3 weeks to the ER. Exam indicative of gallbladder disease. Case discussed with ER physician, request admission for surgical eval. Medicine agreed to admit. Started empirically on Unasyn overnight. Taken for surgery morning. Concern for acute cholecystitis. Gallbladder with abnormal appearance. Tolerated procedure well. Will monitor overnight. Problems addressed as follows: Acute cholecystitis Gallbladder sludge -Discussed case with surgery, tolerated procedure well. Gallbladder had grossly abnormal appearance. In light of elevated inflammatory markers, concern condition would have continued to progress -Pathology pending on gallbladder. -Clear liquid diet -White count this morning 12.7, suspect reactive. Low concern for systemic infection. Holding on further antibiotics after surgery. -Repeat CBC, CMP, magnesium ordered for the morning. If tolerates p.o. liquids and labs are improving, anticipate discharge tomorrow Anxiety: Continue home venlafaxine 150 mg once daily and propranolol 20 mg 3 times a day as needed Clear liquid diet Full code
--- NOTE | 2024-07-03 18:15 | PC.NURSE ---
pt is resting in room supine with mother at bedside. pt tolerated surgery well. 4 laproscopic sites are presents with dressings c/d/i. she has ambulated the hallway multiple times and tolerated well. pt complained of pain shortly after surgery and was treated with morphine per MAR. VSS. pt has tolerated full liquid diet well. verbalizes fullness in abdomen and feeling of air- RN explained air technique used in surgery and encouraged ambulation. NS running @ 50. pt has no complaints at this time.
[2024-07-03] MEDS: 0.9 % SODIUM CHLORIDE 1000ML 1,000 ML 50 ML IV (18:37)
[2024-07-03] MEDS: FAMOTIDINE 20MG TABLET 20 MG PO (22:31)
[2024-07-04] VITALS: BP 129/68; PULSE 70; RESP 16; TEMP 36.7; O2SAT 99
[2024-07-04 04:00] VITALS: BP 126/73; PULSE 68; RESP 16; TEMP 36.6; O2SAT 97; BMI 25.0
--- NOTE | 2024-07-04 05:01 | PC.NURSE ---
vss, a.febrile, pt cont to report incisional pain, pain treated per jan. pt july full liquid diet without n/v, pt reported she was unable to cough, pt instructed on splinting, incentive spirometer instructed to pt. pt ambulated in [place] with family, july well, abd soft but tender. positive bowel sounds and reports passin flatus. drsg remain c/d/i
[2024-07-04] MEDS: MORPHINE 2MG/ML SYRINGE 2 MG IV (06:17)
[2024-07-04 08:00] VITALS: BP 122/71; PULSE 70; RESP 21; TEMP 36.6; O2SAT 100
--- NOTE | 2024-07-04 09:02 | EXP.SURG.PN ---
Subjective Patient reports: no new complaints Narrative: She continues to have lower abdominal/pelvic pain. Right upper quadrant pain is not quite like yesterday . Exam Data for Last 24 hours Vital signs and Labs for Last 24 Hours: Temp Pulse Resp BP Pulse Ox O2 Del Method 97.8 F 70 21 122/71 100 Room Air 07/04/24 08:00 07/04/24 08:00 07/04/24 08:00 07/04/24 08:00 07/04/24 08:00 07/04/24 08:00 I & O for Last 24 hours: Intake & Output 07/01/24 07/02/24 07/03/24 07/04/24 11:59 11:59 11:59 11:59 Intake Total 1100 / 1100 650 / 650 Output Total 0 / 0 0 / 0 Balance 1100 / 1100 650 / 650 Weight 151 lb 1.607 oz 150 lb 4.8 oz Constitutional Constitutional: no acute distress *Routine Respiratory Exam Respiratory: Absent respiratory distress *Routine Cardiovascular Exam Cardiovascular: Absent tachycardia *Routine Abdominal Exam Comments: Dressings intact. No spreading cellulitis. Progress Note: A&P Assessment and plan (1) Acute cholecystitis: Status: Acute Assessment and plan: Overall, doing well status post laparoscopic cholecystectomy. (2) Intractable abdominal pain: Status: Acute (3) Recurrent UTI: Status: Acute Assessment and plan: Treatment as per primary service (4) Chlamydia infection: Status: Acute Assessment and plan: Treatment as per primary service
[2024-07-04 09:06] LABS: Basophils % 0.3 % (0.1-2.0); Eosinophils % 0.4 % (0.1-12.0); Hematocrit 39.2 % (37.0-47.0); Hemoglobin 12.5 g/dL (12.2-16.2); Lymphocytes # 2.3 K/mm3 (0.7-4.5); Lymphocytes % 21.1 % (10-50); Mean Corpuscular HGB Conc 31.8 g/dL (31.8-35.4); Mean Corpuscular Hemoglobin 31.4 pg (27.0-31.2); Mean Corpuscular Volume 98.8 fl (81-99); Mean Platelet Volume 8.6 fl (7.4-10.4); Monocytes # 0.4 K/mm3 (0.1-1.0); Monocytes % 3.7 % (1.7-9.3); Neutrophils # 8.2 K/mm3 (1.8-7.8); Neutrophils % 74.6 % (37.0-80.0); Platelet Count 249 K/mm3 (142-424); Red Blood Count 3.96 M/mm3 (4.20-5.40); Red Cell Distribution Width 13.7 % (11.5-17.5); White Blood Count 10.9 K/mm3 (4.5-13.0)
[2024-07-04 09:17] LABS: Albumin Level 3.9 g/dl (3.5-5.0); Chloride 108 mmol/L (98-107); Potassium 3.3 mmoL/L (3.5-5.1); Sodium 139 mmol/L (136-145)
[2024-07-04 09:20] LABS: Alanine Aminotransferase 455 U/L (12-78); Albumin/Globulin Ratio 1.4 (1.1-1.8); Alkaline Phosphatase 201 U/L (38-126); Anion Gap 10.3 mEq/L (5-15); Aspartate Amino Transferase 443 U/L (14-36); Bilirubin,Total 0.6 mg/dl (0.2-1.3); Blood Urea Nitrogen 3 mg/dl (7-17); Calcium 8.3 mg/dl (8.4-10.2); Carbon Dioxide 24 mmol/L (22.0-30.0); Creatinine Clearance Estimated 138 mL/min (50-200); Estimated Glomerular Filt Rate 107 ml/min (>60); GFR (African American) 129 ML/MIN (>60); Globulin 2.7 g/dL (1.3-3.2); Glucose 95 mg/dl (74-100); Magnesium 1.7 mg/dl (1.6-2.3); Total Protein,Serum 6.6 g/dl (6.3-8.2)
--- NOTE | 2024-07-04 09:44 | EXP.DC.SUM ---
General Admission date:: 07/02/24 Discharge date: 07/04/24 HPI HPI HPI: This is a 18-year-old female seen in consultation after being admitted for increasing abdominal pain. She has undergone evaluation crossing multiple emergency department visits without definitive etiology noted. Evaluation for possible gynecologic etiology has been completed. A CT scan revealed sludge versus non-calcified stones within the gallbladder but no definitive evidence of acute cholecystitis. She continues to have pain throughout the abdomen but states that it is worse in the mid lower abdomen and right upper quadrant. No jaundice. No fevers. Forwarded from admission H&P: This patient who has chronic urinary cystitis noted that her pain was different and began to have nausea with some vomiting. Pain to upper right quadrant and has been there for a week this is her third visit to the emergency room.. Scan showed biliary sludge and exam showed tenderness in the upper right quadrant at the vicinity of the gallbladder to light palpation. After speaking with the emergency room doctor we will go ahead and admit and consult general surgery for evaluation and possible cholecystectomy. Noted family history mother had her gallbladder removed at about the same age. Hospital Course Hospital Course Hospital Course: 18-year-old female who presents with recurring abdominal pain, third time in 3 weeks to the ER. Exam indicative of gallbladder disease. Case discussed with ER physician, request admission for surgical eval. Medicine agreed to admit. Started empirically on Unasyn overnight. Taken for surgery morning after admission. Findings of acute cholecystitis. Gallbladder abnormal in appearance and removed. Tolerated procedure well. Had improvement in pain. Prior to discharge however had some recurrence of her lower abdominal pain. Of note, found to be positive for chlamydia. Will treat as an outpatient with oral antibiotics. Stable to discharge home. Problems addressed as follows: Acute cholecystitis Gallbladder sludge -Surgery consulted. Patient made NPO. Imaging of abdomen concerning for enlarged gallbladder with sludge. Taken for cholecystectomy with grossly abnormal appearance. Inflammatory markers were elevated. Patient tolerated procedure well with good response. Pathology pending on gallbladder at discharge. Received antibiotics prior to surgery. No antibiotics continued after for her gallbladder. White count improved to 10 on morning of discharge. Tolerating p.o. liquids. Abdominal pain improved. Close follow-up with surgery in the next 1 to 2 weeks to monitor postop healing. -Discussed dietary adjustments, low-fat diet. Mother has previously had her gallbladder removed, states understanding. Chlamydia -On her previous workup in the ER, sample obtained. Found to be positive for chlamydia. Discussed with patient today the lab finding. She seems tearful and upset with this news. She expressed concern for her relationship with her current boyfriend. Has not had any vaginal discharge. Unclear when she may have picked it up or for how long. Has had previous STD testing that has been negative within the past year. Will treat with doxycycline 100 mg twice daily. Prescribed 14 days total as she has an appointment to see her aerospace assembler tomorrow. If found to have pelvic inflammatory disease on gynecologic exam, complete 14 days total. If not, instructed to complete only 7 days to treat her case. Patient states understanding. Anxiety: Continue home venlafaxine 150 mg once daily and propranolol 20 mg 3 times a day as needed Total time spent on discharge 32 minutes in counseling, documentation, chart review, and direct care with patient. Exam Data for Last 24 hours Vital signs and Labs for Last 24 Hours: Temp Pulse Resp BP Pulse Ox O2 Del Method 97.8 F 70 21 122/71 100 Room Air 07/04/24 08:00 07/04/24 08:00 07/04/24 08:00 07/04/24 08:00 07/04/24 08:00 07/04/24 09:00 Laboratory Results - last 24 hr 07/04/24 08:08: WBC 10.9, RBC 3.96 L, Hgb 12.5, Hct 39.2, MCV 98.8, MCH 31.4 H, MCHC 31.8, RDW 13.7, Plt Count 249, MPV 8.6, Neut % (Auto) 74.6, Lymph % (Auto) 21.1, [place] % (Auto) 3.7, Eos % (Auto) 0.4, Baso % (Auto) 0.3, Neut # (Auto) 8.2 H, Lymph # (Auto) 2.3, [place] # (Auto) 0.4, Eos # (Auto) 0.0, Baso # (Auto) 0.0, Sodium 139, Potassium 3.3 L D, Chloride 108 H, Carbon Dioxide 24, Anion Gap 10.3, BUN 3 L D, Creatinine 0.70, Estimated Creat Clear 138, Estimated GFR 107, Est GFR ( Amer) 129, Glucose 95, Calcium 8.3 L, Magnesium 1.7, Total Bilirubin 0.6, AST 443 H* D, ALT 455 H*, Alkaline Phosphatase 201 H, Total Protein 6.6, Albumin 3.9, Globulin 2.7, Albumin/Globulin Ratio 1.4 I & O for Last 24 hours: Intake & Output 07/01/24 07/02/24 07/03/24 07/04/24 23:59 23:59 23:59 23:59 Intake Total 1700 / 1700 50 / 50 Output Total 0 / 0 0 / 0 Balance 1700 / 1700 50 / 50 Weight 68.538 kg 68.538 kg 68.175 kg Constitutional Constitutional: no acute distress and cooperative *Routine HEENT Exam Head: Present normocephalic Eye: Present EOMI and PERRL ENT: Present mucous membranes moist *Routine Neck Exam Neck: Present supple; Absent lymphadenopathy *Routine Respiratory Exam Respiratory: Present CTA bilaterally; Absent rhonchi, wheezes or crackles *Routine Cardiovascular Exam Cardiovascular: Present RRR *Routine Abdominal Exam Abdominal: Present soft, normoactive bowel sounds and tenderness (Over surgical incisions.) *Routine Rectal Exam Patient deferred: visual exam *Routine Exam Patient deferred: external exam *Routine Extremities Exam Extremities: Absent cyanosis, clubbing or edema *Routine Skin Exam Skin: Present warm; Absent rash *Routine Neurological Exam Neurological: Present alert, oriented X3 and moving all extremities; Absent altered mental status Results Data Completed and Pending Labs on day of discharge: Labs from last 24 hours 07/04/24 08:08 WBC 10.9 RBC 3.96 L Hgb 12.5 Hct 39.2 MCV 98.8 MCH 31.4 H MCHC 31.8 RDW 13.7 Plt Count 249 MPV 8.6 Neut % (Auto) 74.6 Lymph % (Auto) 21.1 [place] % (Auto) 3.7 Eos % (Auto) 0.4 Baso % (Auto) 0.3 Neut # (Auto) 8.2 H Lymph # (Auto) 2.3 [place] # (Auto) 0.4 Eos # (Auto) 0.0 Baso # (Auto) 0.0 Sodium 139 Potassium 3.3 L D Chloride 108 H Carbon Dioxide 24 Anion Gap 10.3 BUN 3 L D Creatinine 0.70 Estimated Creat Clear 138 Estimated GFR 107 Est GFR ( Amer) 129 Glucose 95 Calcium 8.3 L Magnesium 1.7 Total Bilirubin 0.6 AST 443 H* D ALT 455 H* Alkaline Phosphatase 201 H Total Protein 6.6 Albumin 3.9 Globulin 2.7 Albumin/Globulin Ratio 1.4 DS: Diagnosis Discharge Diagnosis (1) Acute cholecystitis: Status: Acute Code(s): K81.0 - Acute cholecystitis (2) Intractable abdominal pain: Status: Acute Code(s): R10.9 - Unspecified abdominal pain (3) Recurrent UTI: Status: Acute Code(s): N39.0 - Urinary tract infection, site not specified (4) Chlamydia infection: Status: Acute Code(s): A74.9 - Chlamydial infection, unspecified Meds Home Medications and Allergies Home Medications ?Medication ?Instructions ?Recorded ?Confirmed ?Type venlafaxine 150 mg 150 mg PO DAILY #30 caps 05/04/24 07/02/24 Rx capsule,extended release 24 hr (Effexor XR) benzoyl peroxide 5 % topical 1 applic topical DAILY 06/07/24 07/03/24 History cleanser cyclobenzaprine 10 mg tablet 10 mg PO TIDP PRN muscle spasm 07/03/24 07/03/24 History ondansetron HCl 4 mg tablet 4 mg PO Q8HP PRN Nausea And 07/03/24 07/03/24 History Vomiting propranolol 20 mg tablet 20 mg PO TIDP PRN anxiety 07/03/24 07/03/24 History doxycycline hyclate 100 mg capsule 100 mg PO BID 14 days #28 caps 07/04/24 Rx hydrocodone 5 mg-acetaminophen 325 1 tab PO Q6H PRN pain #11 tabs 07/04/24 Rx mg tablet New Prescriptions to Start Prescriptions: doxycycline rudyclate Doc Aguilar hydrocodone-acetaminophen Doc Aguilar Allergies Allergy/AdvReac Type Severity Reaction Status Date / Time ciprofloxacin Allergy Unknown Vomiting Verified 06/29/24 11:17 ceftriaxone AdvReac Unknown Dizziness Verified 06/29/24 11:17 Discharge Plan Disposition Patient Disposition: Home, Self-Care Condition: Fair Follow up Plan Follow up with: Berto Jean MD [Staff Physician] - 2 weeks (please call for appointment ) Prescriptions/Medication Reconciliation: New doxycycline hyclate 100 mg capsule 100 mg PO BID 14 Days Qty: 28 0RF hydrocodone-acetaminophen 5-325 mg tablet 1 tab PO Q6H PRN (Reason: pain) Qty: 11 0RF Continued benzoyl peroxide 5 % cleanser 1 applic topical DAILY Patient Comments: APPLY DAILY IN THE SHOWER TO THE AFFECTED AREAS OF THE THIGHS. LET SIT 5 MINUTES THEN RINSE. Rx Instructions: DAILY IN SHOWER ON THIGHS venlafaxine [Effexor XR] 150 mg capsule,extended release 24hr 150 mg PO DAILY Qty: 30 2RF ondansetron HCl 4 mg tablet 4 mg PO Q8HP PRN (Reason: Nausea And Vomiting) cyclobenzaprine 10 mg tablet 10 mg PO TIDP PRN (Reason: muscle spasm) propranolol 20 mg tablet 20 mg PO TIDP PRN (Reason: anxiety) Discontinued nitrofurantoin monohyd/m-cryst [Macrobid] 100 mg capsule 100 mg PO BID 7 Days Qty: 14 0RF Rx Instructions: must administer with a meal/food cephalexin 500 mg capsule 500 mg PO QID Problem Reconciliation Problems Reviewed?: Yes Patient Discharge Instructions ACTIVITY: Ambulate as tolerated and No heavy lifting DIET: advance to your usual diet Patient Instructions: DI for Abdominal Pain-Adult, DI for Constipation Print Language: Jordanian Providers Primary Care Provider: Maeve Kruger Admit Provider: Doc Aguilar Attending Provider: Doc Aguilar
[2024-07-04] MEDS: DOXYCYCLINE HYCL 100 MG TABLET PO (10:20)
[2024-07-04] MEDS: VENLAFAXINE XR 75MG CAPSULE 150 MG PO (10:20)
--- NOTE | 2024-07-05 07:06 | EXP.ANES.II ---
[facility] Anesthesia Record Part II Anesthesia Record Part II Discharge Time: 11:10 Destination: Second Floor PACU nurse assessment reviewed?: Yes Patient Condition:: Good Anesthesia Complications:: None Swallowing reflex intact?: Yes Airway Patency: Patent Cyanosis?: No Blood Pressure: 115/72 SaO2: 97 Respiratory Rate: 16 Pulse Rate: 69 Temperature: 97.7 F Mental Status: Alert & Oriented Pain level:: 4 Nausea and/or vomitting:: None Intake, IV Amount: 0 Hydration: Adequate
[2024-07-05 07:07] VITALS: BP 115/72; PULSE 69; RESP 16; TEMP 36.5; O2SAT 97
[2024-07-05 21:37] LABS: Neisseria gonorrhoeae, NAA Negative (Negative)
--- NOTE | 2024-07-06 16:00 | CARE MANAGER ---
Called and spoke with patient regarding recent discharge. She stated that she is doing really well, has scheduled f/u appt with Dr. Jean on 07/14/2024 and voiced no concerns at time of call.
== END 2024-07-04 10:39 | disposition home or self-care (01) ==
LOC: ER 20:58 → 2ND 21:51
PROVIDERS: Nurse Practitioner Family; Surgery; Admitting Provider Internal Medicine Adolescent Medicine; Emergency Provider Emergency Medicine; PCP Nurse Practitioner; Visit Provider Internal Medicine Adolescent Medicine
PROC: 0FT44ZZ Resection of Gallbladder, Percutaneous Endoscopic Approach (ICD-10-PCS; CPT 47562; principal; 2024-07-03 10:00)
DX: K81.0 Acute cholecystitis (principal); N39.0 Urinary tract infection, site not specified; A74.9 Chlamydial infection, unspecified; F17.290 Nicotine dependence, other tobacco product, uncomplicated; F12.90 Cannabis use, unspecified, uncomplicated; N30.10 Interstitial cystitis (chronic) without hematuria
CPT/HCPCS: 47562; 36415; 74177; 80053; 80307; 81001; 81025; 83605; 83690; 83735; 84703; 85025; 86140; 87086; 87491; 87591; 99285; J3490; G0378; J0131; J0295; J1100; J1885; J2250; J2270; J2405; J2765; J3010; J7120; Q9967

== ENCOUNTER 2024-07-12 16:15 | Outpatient (CLI) | payer BC, SELFPAY | END 2024-07-12 23:59 | disposition home or self-care (01) | LOC: RAD 11-20 17:13 | PROVIDERS: PCP Nurse Practitioner; Visit Provider Orthopaedic Surgery | DX: M25.532 Pain in left wrist (principal) ==

== ENCOUNTER 2024-07-14 09:50 | Outpatient (CLI) | payer BC, SELFPAY ==
[2024-07-14 10:39] LABS: Alanine Aminotransferase 254 U/L (12-78); Albumin Level 4.3 g/dl (3.5-5.0); Albumin/Globulin Ratio 1.4 (1.1-1.8); Alkaline Phosphatase 113 U/L (38-126); Anion Gap 9.7 mEq/L (5-15); Aspartate Amino Transferase 110 U/L (14-36); Bilirubin,Total 0.6 mg/dl (0.2-1.3); Blood Urea Nitrogen 12 mg/dl (7-17); Calcium 9.4 mg/dl (8.4-10.2); Carbon Dioxide 24 mmol/L (22.0-30.0); Chloride 107 mmol/L (98-107); Estimated Glomerular Filt Rate 127 ml/min (>60); GFR (African American) 154 ML/MIN (>60); Glucose 93 mg/dl (74-100); Potassium 3.7 mmoL/L (3.5-5.1); Sodium 137 mmol/L (136-145); Total Protein,Serum 7.3 g/dl (6.3-8.2)
== END 2024-07-14 23:59 | disposition home or self-care (01) ==
LOC: LAB 09:51
PROVIDERS: PCP Nurse Practitioner; Visit Provider Surgery
DX: K80.20 Calculus of gallbladder without cholecystitis without obstruction (principal)
CPT/HCPCS: 36415; 80053

== ENCOUNTER 2024-10-11 10:39 | Emergency (ER) | payer BC, SELFPAY ==
--- NOTE | 2024-10-11 11:05 | PC.NURSE ---
While attempting to triage patient she became very tearful. Refused vitals and yelling I just want to go home . Patient then stood up and left the department.
[2024-10-11 11:07] VITALS: BP 0/0; PULSE 0; RESP 0; TEMP -17.7; TEMP 0; O2SAT 0
== END 2024-10-11 11:07 | disposition left against medical advice (07) ==
PROVIDERS: Emergency Provider Nurse Practitioner; PCP Nurse Practitioner
DX: Z53.29 Procedure and treatment not carried out because of patient's decision for other reasons (principal)
CPT/HCPCS: 99211; G0380

== ENCOUNTER 2024-11-06 01:55 | Emergency (ER) | payer BC, SELFPAY ==
[2024-11-06 01:56] VITALS: BP 164/95; PULSE 92; RESP 20; TEMP 36.7; O2SAT 99; BMI 24.0
--- NOTE | 2024-11-06 02:19 | HMH.EDGENADL ---
Discharge Plan Disposition Patient Disposition: Home, Self-Care Prescriptions Prescriptions: No Action benzoyl peroxide 5 % cleanser 1 applic topical DAILY Patient Comments: APPLY DAILY IN THE SHOWER TO THE AFFECTED AREAS OF THE THIGHS. LET SIT 5 MINUTES THEN RINSE. Rx Instructions: DAILY IN SHOWER ON THIGHS albuterol sulfate 90 mcg/actuation HFA aerosol inhaler 2 puff inhalation Q4-6H PRN (Reason: shortness of breath or wheezing) Qty: 8.5 0RF omeprazole 40 mg capsule,delayed release(DR/EC) 40 mg PO DAILY Qty: 30 2RF fluticasone propionate 50 mcg/actuation spray,suspension 1 spray intranasal DAILY Qty: 16 2RF Rx Instructions: administer into each nostril amoxicillin-pot clavulanate 875-125 mg tablet 1 tab PO BID Qty: 20 0RF dexamethasone 4 mg tablet 4 mg PO BID Qty: 10 0RF venlafaxine [Effexor XR] 150 mg capsule,extended release 24hr 150 mg PO DAILY Qty: 30 2RF ondansetron HCl 4 mg tablet 4 mg PO Q8HP PRN (Reason: Nausea And Vomiting) propranolol 20 mg tablet 20 mg PO TIDP PRN (Reason: anxiety) Referrals Follow up/Referrals: Maeve Kruger APRN [Primary Care Provider] - See instructions Activity Restrictions/Add. Instructions Additional Instructions/Restrictions: Please keep wound clean dry and intact. Sutures will dissolve in the next 5 to 7 days. Monitor for signs of infection. Please follow-up with your primary care provider. Please return to the emergency department if you develop any new or worsening symptoms or become concerned for your health. Clinical Impressions Clinical Impression: Laceration of face Instructions Patient Instructions: DI for Laceration Repair Print Language Print Language: Citizen Of [place] Discharge ED Provider: Nestor Cuevas General Adult HPI General Chief complaint: Wound/Laceration Stated complaint: laceration forehead Time Seen by Provider: 11/06/24 02:06 Mode of Arrival: Ambulatory Source of Information: Patient Limitations: No Limitations Description of Symptoms (Recalled from ER Triage Doc. by RN): Pt here w/ c/o lac to forehead s/p mechanical fall from standing position. Lac measuring approx 4 cm, no active bleeding at this time. Pt denies loc, denies blood thinners. History of Present Illness HPI narrative: 19-year-old female with history of anxiety depression and ADHD presents for fall with facial laceration. She reports that she fell forward onto the ground striking her head. She denies loss of consciousness. She denies nausea or vomiting. She denies significant headache. Related Data Home Medications ?Medication ?Instructions ?Recorded ?Confirmed benzoyl peroxide 5 % topical 1 applic topical DAILY 06/07/24 10/25/24 cleanser ondansetron HCl 4 mg tablet 4 mg PO Q8HP PRN Nausea And 07/03/24 10/25/24 Vomiting propranolol 20 mg tablet 20 mg PO TIDP PRN anxiety 07/03/24 10/25/24 Previous Rx's ?Medication ?Instructions ?Recorded venlafaxine 150 mg 150 mg PO DAILY #30 caps 05/04/24 capsule,extended release 24 hr (Effexor XR) albuterol sulfate 90 mcg/actuation 2 puff inhalation Q4-6H PRN 10/12/24 aerosol inhaler shortness of breath or wheezing #8.5 grams fluticasone propionate 50 1 spray intranasal DAILY #16 grams 10/21/24 mcg/actuation nasal spray,suspension omeprazole 40 mg capsule,delayed 40 mg PO DAILY #30 caps 10/21/24 release amoxicillin 875 mg-potassium 1 tab PO BID #20 tabs 10/25/24 clavulanate 125 mg tablet dexamethasone 4 mg tablet 4 mg PO BID #10 tabs 10/25/24 Allergies Allergy/AdvReac Type Severity Reaction Status Date / Time ciprofloxacin Allergy Unknown Vomiting Verified 10/25/24 13:25 ceftriaxone AdvReac Unknown Dizziness Verified 10/25/24 13:25 [facility] Disclaimer: The information contained in this section may have been updated after the patient was seen, as this information can be updated by other users. 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 Chronic post-traumatic stress disorder (PTSD) Generalized anxiety disorder with panic attacks MDD (major depressive disorder), recurrent episode, moderate Anxiety and depression Dyspareunia Recurrent UTI Encounter for smoking cessation counseling Nicotine dependence Myofasciitis Depression Hearing loss Surgical History History of cholecystectomy History of placement of ear tubes [place] teeth extracted Family History Other No significant family history Social History (Updated 10/25/24 @ 13:32 by Karol uGpta MA) Smoking Status: Never smoker alcohol intake: current alcohol intake frequency: holidays/special occasions only substance use type: marijuana (Joanne reports smoking multiple blunts per day for calmness.) current occupational status: unemployed Travel in the last 8 weeks: None Other Medical History Have you received the Flu Vaccine for this season: No Have you received the Pneumonia Vaccine: No ROS Obtained: Yes All systems reviewed & no additional complaints except as documented Physical Exam General General appearance: alert and in no apparent distress Head Head exam: normocephalic and other (4 cm linear laceration to the midline forehead starting at the hairline) Eye Eye exam: Present normal appearance, PERRL and EOMI ENT ENT exam: Present normal oropharynx and normal external ear exam Neck Neck exam: Present normal inspection and full ROM Chest Chest inspection: Present normal inspection and symmetric chest wall rise; Absent tenderness Respiratory Respiratory exam: Present normal lung sounds bilaterally; Absent respiratory distress Cardiovascular Cardiovascular exam: Present regular rate and normal rhythm Abdominal Exam Abdominal exam: Present soft; Absent distention, tenderness or guarding Extremities Exam Extremities exam: Present normal inspection; Absent edema or joint swelling Back Exam Back exam: Present normal inspection; Absent tenderness Neurological Exam Neurological exam: Present alert and oriented X3; Absent motor sensory deficit Psychiatric Psychiatric exam: Present normal affect and normal mood Skin Skin exam: Present warm, dry and normal color Lymphatic Lymphatic Findings: no adenopathy Medical Decision Making Medical Records Medical records reviewed: Yes I reviewed the patient's medical records. Screening: Per USPSTF and CDC recommendations, given the prevalence of disease in our region, it is our hospital?s policy to screen for HIV and viral Hepatitis for all patients aged 18 and over and those with ongoing risk factors. Alex Inquiry Pt receiving controlled substance: No Alex was queried for this patient: No Vital Signs: 11/06/24 01:56 Temperature 98.0 F Temperature Source Oral Pulse Rate [Apical] 92 H Respiratory Rate 20 Blood Pressure [Right Arm] 164/95 H Blood Pressure Mean [Right Arm] 118 02 Sat by Pulse Oximetry 99 Oxygen Delivery Method Room Air Lab Data Lab results reviewed: Yes I reviewed the patient's lab results. Orders (Tests/Meds): ED MEDICATIONS Discontinued Medications Generic Name Dose Route Start Last Admin Trade Name Kriss PRN Reason Stop Dose Admin Lidocaine/Epinephrine 5 ml 11/06/24 02:16 Lidocaine 1% W/Epi 1:100,000 20ml Vial SQ 11/06/24 02:17 ONCE ONE ORDERS Category Date Time Status HIV (1&2) Antibody Rapid Stat Lab 11/06/24 02:12 Ordered Hep C Ab with Reflex to RNA Stat Lab 11/06/24 02:12 Ordered Medical Decision Narrative: 19-year-old female without significant past medical history presents after a fall onto her face with resultant forehead laceration. History was obtained via interactive discussion with patient, family. On arrival, patient is [afebrile, hemodynamically stable, satting appropriately, alert, oriented x4, GCS 15], moving all extremities spontaneously. Full physical exam performed and significant for forehead laceration, no other signs of trauma. Differential includes but is not limited to intracranial trauma, intrathoracic trauma intra-abdominal trauma spine trauma extremity trauma. CT trauma imaging was considered, but deemed unnecessary due to history and physical exam. Given patient history, exam and workup, patient's presentation most likely represents facial laceration. She is up-to-date on tetanus shot. The laceration was copiously irrigated and repaired at bedside by me using fast gut sutures. She was discharged in stable condition with instructions regarding wound care.. Procedures Risk/Benefits of Procedure(s) Were Explained: Yes Laceration Laceration 1: Site: face (Midline forehead) Size (cm): 4 Description: linear Depth: involves subcutaneous layer Local Anesthetic: lidocaine 1% and with epi Amount of anesthesia used (mL): 5 Pre-repair: wound explored, irrigated extensively and deep structures intact Skin layer closed with: other (Fast gut) Size (cm): 5-0 Number of sutures: 5 Technique: simple, interrupted Critical Care Critical Care Time Critical Care Time: No
[2024-11-06 02:54] VITALS: BP 118/78; PULSE 90; RESP 18; TEMP 36.6; O2SAT 99
== END 2024-11-06 02:58 | disposition home or self-care (01) ==
PROVIDERS: Emergency Provider Emergency Medicine; PCP Nurse Practitioner
DX: S01.81XA Laceration without foreign body of other part of head, initial encounter (principal); G50.1 Atypical facial pain; W19.XXXA Unspecified fall, initial encounter; Y93.9 Activity, unspecified
CPT/HCPCS: 99283

== ENCOUNTER 2024-12-01 14:44 | Emergency (ER) | payer BC, SELFPAY ==
[2024-12-01 14:45] VITALS: BP 114/74; PULSE 88; RESP 18; TEMP 36.7; O2SAT 100; BMI 23.1
--- NOTE | 2024-12-01 15:04 | PC.NURSE ---
DR MCDONALD AT BEDSIDE
--- NOTE | 2024-12-01 15:14 | ED_ITS ---
Discharge Plan Disposition Patient Disposition: Home, Self-Care Chief Complaint: Eye Problems Prescriptions Prescriptions: No Action benzoyl peroxide 5 % cleanser 1 applic topical DAILY Patient Comments: APPLY DAILY IN THE SHOWER TO THE AFFECTED AREAS OF THE THIGHS. LET SIT 5 MINUTES THEN RINSE. Rx Instructions: DAILY IN SHOWER ON THIGHS albuterol sulfate 90 mcg/actuation HFA aerosol inhaler 2 puff inhalation Q4-6H PRN (Reason: shortness of breath or wheezing) Qty: 8.5 0RF omeprazole 40 mg capsule,delayed release(DR/EC) 40 mg PO DAILY Qty: 30 2RF fluticasone propionate 50 mcg/actuation spray,suspension 1 spray intranasal DAILY Qty: 16 2RF Rx Instructions: administer into each nostril amoxicillin-pot clavulanate 875-125 mg tablet 1 tab PO BID Qty: 20 0RF dexamethasone 4 mg tablet 4 mg PO BID Qty: 10 0RF venlafaxine [Effexor XR] 150 mg capsule,extended release 24hr 150 mg PO DAILY Qty: 30 2RF ondansetron HCl 4 mg tablet 4 mg PO Q8HP PRN (Reason: Nausea And Vomiting) propranolol 20 mg tablet 20 mg PO TIDP PRN (Reason: anxiety) Referrals Follow up/Referrals: Maeve Kruger APRN [Primary Care Provider] - See instructions Activity Restrictions/Add. Instructions Additional Instructions/Restrictions: Call your family doctor to establish care for this visit to the emergency department and schedule follow-up within 48 hours to ensure improvement. If you have any worsening of your condition or any other concerning signs or symptoms, return to the emergency department or your primary care doctor for further evaluation. Only use analgesic drops at night to prevent further worsening. Antibiotic ointment 3 times daily for 5 days. Clinical Impressions Clinical Impression: Abrasion, corneal Print Language Print Language: Macedonian Discharge ED Provider: Adolph Vallejo General Adult HPI General Chief complaint: Eye Problems Stated complaint: AO 12/01/24, inj right eye Time Seen by Provider: 12/01/24 15:02 Mode of Arrival: Ambulatory Source of Information: Patient Limitations: No Limitations Description of Symptoms (Recalled from ER Triage Doc. by RN): PT REPORTS CRYING AND RUBBING HER EYES, POSSIBLE SCRATCH TO RIGHT EYE History of Present Illness HPI narrative: Please note that above description of symptoms, in this electronic medical record under categorization of recalled from ER triage doctor by RN are reflective of an initial nursing assessment, however, is not reflective of my full history and physical exam that was personally taken and clarified. Consequentially, this preceding description of symptoms, which may include the patient's categorized chief complaint in the EMR, do not reflect my personal clinical impression, and the ultimate description of history of present illness and patient stated complaints should be deferred to this section of the note. Unless stated otherwise or congruent with this section of the note, additional signs, symptoms, or incongruence should be interpreted as inaccurate with my clinical impression. Related Data Home Medications ?Medication ?Instructions ?Recorded ?Confirmed benzoyl peroxide 5 % topical 1 applic topical DAILY 06/07/24 10/25/24 cleanser ondansetron HCl 4 mg tablet 4 mg PO Q8HP PRN Nausea And 07/03/24 10/25/24 Vomiting propranolol 20 mg tablet 20 mg PO TIDP PRN anxiety 07/03/24 10/25/24 Previous Rx's ?Medication ?Instructions ?Recorded venlafaxine 150 mg 150 mg PO DAILY #30 caps 05/04/24 capsule,extended release 24 hr (Effexor XR) albuterol sulfate 90 mcg/actuation 2 puff inhalation Q4-6H PRN 10/12/24 aerosol inhaler shortness of breath or wheezing #8.5 grams fluticasone propionate 50 1 spray intranasal DAILY #16 grams 10/21/24 mcg/actuation nasal spray,suspension omeprazole 40 mg capsule,delayed 40 mg PO DAILY #30 caps 10/21/24 release amoxicillin 875 mg-potassium 1 tab PO BID #20 tabs 10/25/24 clavulanate 125 mg tablet dexamethasone 4 mg tablet 4 mg PO BID #10 tabs 10/25/24 Allergies Allergy/AdvReac Type Severity Reaction Status Date / Time ciprofloxacin Allergy Unknown Vomiting Verified 10/25/24 13:25 ceftriaxone AdvReac Unknown Dizziness Verified 10/25/24 13:25 PFSH PFS Disclaimer: The information contained in this section may have been updated after the patient was seen, as this information can be updated by other users. 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 Chronic post-traumatic stress disorder (PTSD) Generalized anxiety disorder with panic attacks MDD (major depressive disorder), recurrent episode, moderate Anxiety and depression Dyspareunia Recurrent UTI Encounter for smoking cessation counseling Nicotine dependence Myofasciitis Depression Hearing loss Surgical History History of cholecystectomy History of placement of ear tubes Shock teeth extracted Family History Other No significant family history Social History (Updated 10/25/24 @ 13:32 by Karol Gupta MA) Smoking Status: Current every day smoker tobacco type: e-cigarettes alcohol intake: current alcohol intake frequency: holidays/special occasions only substance use type: marijuana (Joanne reports smoking multiple blunts per day for calmness.) current occupational status: unemployed Travel in the last 8 weeks: None Other Medical History Have you received the Flu Vaccine for this season: No Have you received the Pneumonia Vaccine: No ROS Obtained: Yes All systems reviewed & no additional complaints except as documented Physical Exam General General appearance: alert Head Head exam: atraumatic and normocephalic Eye Eye exam: Present PERRL, EOMI and other (Per MDM); Absent normal appearance Neck Neck exam: Present normal inspection, full ROM and trachea midline Respiratory Respiratory exam: Absent respiratory distress, wheezes, stridor, accessory muscle use or prolonged expiratory phase Cardiovascular Cardiovascular exam: Present other (Pulses equal symmetric in upper and lower extremities) Abdominal Exam Abdominal exam: Present soft; Absent distention, tenderness or pulsatile mass Extremities Exam Extremities exam: Absent edema Neurological Exam Neurological exam: Present alert, oriented X3 and CN II-XII intact; Absent motor sensory deficit Skin Skin exam: Present warm and dry; Absent diaphoresis or erythema Medical Decision Making Medical Records Medical records reviewed: Yes I reviewed the patient's medical records. Screening: Per USPSTF and CDC recommendations, given the prevalence of disease in our region, it is our hospital?s policy to screen for HIV and viral Hepatitis for all patients aged 18 and over and those with ongoing risk factors. Alex Inquiry Pt receiving controlled substance: No Alex was queried for this patient: No Vital Signs: 12/01/24 14:45 Temperature 98.0 F Temperature Source Oral Pulse Rate [Radial] 88 Respiratory Rate 18 Blood Pressure [Right Arm] 114/74 Blood Pressure Mean [Right Arm] 87 Blood Pressure Source [Right Arm] Automatic Cuff Blood Pressure Position [Right Arm] Sitting 02 Sat by Pulse Oximetry 100 Oxygen Delivery Method Room Air Medical Decision Narrative: 19-year-old female presenting with pain in right eye. Patient states that she was crying, think she scraped her eye. Is on the right side. Vision is normal, but right eye toscano and is red. Does not wear contacts. History obtained the patient. On arrival, she is in mild distress secondary to pain. Difficult to examine eye prior to numbing. Tetracaine was administered and patient had near immediate relief. Upon being numbed, patient's vision is 20/20 bilaterally, clear, intact and patient has no visual complaints. EOMs are intact. Pupils equal and reactive at 4 mm. No evidence of hyphema, proptosis, entrapment, conjunctival hemorrhage, pupillary changes, cellulitic change, obvious foreign body, or otherwise irregular ocular findings. Fluorescein staining with focal uptake at 7 o'clock position. Approximately 2 mm circular defect. IOP deferred given patient has no pain after service analgesia and no trauma to the eye otherwise. Patient was given erythromycin ointment. Return precautions discussed. Because patient at baseline without signs or symptoms of clinical decompensation, deemed appropriate for discharge. Results were relayed to patient who voiced understanding and were agreeable to outpatient management and follow up. I discussed my clinical impression with patient and answered all questions. At this time, the evidence for any other entities in the differential is insufficient to warrant any further testing or ED observation. This was explained as well. Advisory was given that persistent or worsening symptoms require further evaluation. I confirmed the understanding of this discussion. Cable Television Line Technician disclaimer Much of this encounter note is an electronic cash management coordinator spoken language to printed text. Electronic cash management coordinator of the spoken language may permit errors. Although I have reviewed the note, some errors may still exist. Critical Care Critical Care Time Critical Care Time: No
[2024-12-01] MEDS: FLUORESCEIN SODIUM 1MG STRIP 1 MG OP (15:15)
[2024-12-01] MEDS: ERYTHROMYCIN BASE 1 GM OINT...G. OP (15:15)
[2024-12-01] MEDS: TETRACAINE 0.5% OPTH SOL 15ML OP (15:16)
[2024-12-01 15:21] VITALS: BP 114/74; PULSE 88; RESP 16; TEMP 36.7; O2SAT 100
== END 2024-12-01 15:22 | disposition home or self-care (01) ==
LOC: ER 12-06 09:48
PROVIDERS: Emergency Provider Emergency Medicine; PCP Nurse Practitioner
DX: S05.00XA Injury of conjunctiva and corneal abrasion without foreign body, unspecified eye, initial encounter (principal); H57.11 Ocular pain, right eye; X58.XXXA Exposure to other specified factors, initial encounter; Y93.89 Activity, other specified; Y92.9 Unspecified place or not applicable
CPT/HCPCS: 99283

== ENCOUNTER 2024-12-20 12:55 | Outpatient (CLI) | payer BC, SELFPAY ==
[2024-12-20 18:58] LABS: Alanine Aminotransferase 49 U/L (12-78); Albumin Level 4.6 g/dl (3.5-5.0); Albumin/Globulin Ratio 1.8 (1.1-1.8); Alkaline Phosphatase 75 U/L (38-126); Anion Gap 13.4 mEq/L (5-15); Aspartate Amino Transferase 41 U/L (14-36); Bilirubin,Total 0.2 mg/dl (0.2-1.3); Blood Urea Nitrogen 9 mg/dl (7-17); Calcium 9.1 mg/dl (8.4-10.2); Carbon Dioxide 26 mmol/L (22.0-30.0); Chloride 105 mmol/L (98-107); Estimated Glomerular Filt Rate 106 ml/min (>60); GFR (African American) 128 ML/MIN (>60); Globulin 2.5 g/dL (1.3-3.2); Glucose 66 mg/dl (74-100); Potassium 4.4 mmoL/L (3.5-5.1); Sodium 140 mmol/L (136-145); Total Protein,Serum 7.1 g/dl (6.3-8.2)
[2024-12-20 19:12] LABS: Free T4 (Free Thyroxine) 1.21 ng/dl (0.78-2.19)
[2024-12-20 19:28] LABS: Thyroid Stimulating Hormone 0.73 uIU/mL (0.465-4.68)
[2024-12-20 19:42] LABS: HCG,Quantitative < 2 mIU/ml (0-5.42)
[2024-12-20 19:47] LABS: Vitamin B12 279 pg/mL (239-931)
[2024-12-20 20:34] LABS: 25-OH Vitamin D, Total 45.1 ng/mL (30-100)
[2024-12-22 08:13] LABS: Estradiol 36.2 pg/mL (.); FSH 7.4 mIU/mL (.); LH 6.7 mIU/mL (.)
[2024-12-24 09:46] LABS: Basophils # 0.1 K/mm3 (0-0.2); Basophils % 0.7 % (0.1-2.0); Eosinophils # 0.2 K/mm3 (0.0-0.4); Eosinophils % 2.8 % (0.1-12.0); Hematocrit 39.9 % (37.0-47.0); Hemoglobin 12.7 g/dL (12.2-16.2); Lymphocytes # 3.1 K/mm3 (0.7-4.5); Lymphocytes % 43.2 % (10-50); Mean Corpuscular HGB Conc 31.8 g/dL (31.8-35.4); Mean Corpuscular Hemoglobin 29.8 pg (27.0-31.2); Mean Corpuscular Volume 93.7 fl (81-99); Mean Platelet Volume 10.8 fl (7.4-10.4); Monocytes # 0.5 K/mm3 (0.1-1.0); Monocytes % 6.2 % (1.7-9.3); Neutrophils # 3.4 K/mm3 (1.8-7.8); Neutrophils % 46.8 % (37.0-80.0); Platelet Count 315 K/mm3 (142-424); Red Blood Count 4.26 M/mm3 (4.20-5.40); Red Cell Distribution Width 13.8 % (11.5-17.5); White Blood Count 7.3 K/mm3 (4.8-10.8)
[2024-12-24 10:57] LABS: Hemoglobin A1C 5.2 % (4.0-6.0)
[2024-12-24 19:25] LABS: Estrogen 126 pg/mL (.)
== END 2024-12-20 23:59 | disposition home or self-care (01) ==
LOC: LAB.DROPOF 12-21 07:56
PROVIDERS: PCP Nurse Practitioner; Visit Provider Nurse Practitioner
DX: F39 Unspecified mood [affective] disorder (principal); N92.6 Irregular menstruation, unspecified; L65.9 Nonscarring hair loss, unspecified; R30.0 Dysuria; Z68.23 Body mass index [BMI] 23.0-23.9, adult
CPT/HCPCS: 80053; 82306; 82607; 82670; 82672; 83001; 83002; 83036; 84439; 84443; 84702; 85025; 87086

== ENCOUNTER 2025-01-05 09:06 | Emergency (ER) | payer BC, SELFPAY ==
[2025-01-05 09:06] VITALS: BP 152/89; PULSE 81; RESP 16; TEMP 36.7; O2SAT 98; BMI 23.6
--- NOTE | 2025-01-05 09:09 | ECG_ITS ---
APPROVED REPORT Exam: Resting ECG HR:90 bpm ECG Measurements Heart Rate 90 AXES NC 158 P 76 QRSd 83 QRS 88 QT 360 T 71 QTc 407 Conclusion SINUS RHYTHM WITH SINUS ARRHYTHMIA POSSIBLE RIGHT VENTRICULAR CONDUCTION DELAY [RSR (QR) IN V1/V2] No STEMI Electronically signed by : JUDY KELLY, 01/05/2025 13:26:44
--- NOTE | 2025-01-05 09:18 | XR_ITS ---
FINAL REPORT CLINICAL HISTORY: chest pain, SOA FINDINGS: 2 views of the chest were obtained . The heart is normal in size. The mediastinum is within normal limits. The lungs are clear. There is no pneumothorax. Osseous structures are unremarkable. IMPRESSION: No acute cardiopulmonary process. Reviewed, Interpreted and Dictated by Graham Ray MD Transcribed by Luiza Fall Authenticated and [facility]
[2025-01-05 09:30] VITALS: BP 140/93; PULSE 90; RESP 14; O2SAT 100
--- NOTE | 2025-01-05 09:31 | PC.NURSE ---
pt to xr
[2025-01-05 09:33] LABS: Basophils # 0.1 K/mm3 (0-0.2); Basophils % 0.7 % (0.1-2.0); Eosinophils # 0.1 K/mm3 (0.0-0.4); Eosinophils % 1.3 % (0.1-12.0); Hematocrit 39.5 % (37.0-47.0); Hemoglobin 13.3 g/dL (12.2-16.2); Lymphocytes # 2.4 K/mm3 (0.7-4.5); Lymphocytes % 31.2 % (10-50); Mean Corpuscular HGB Conc 33.7 g/dL (31.8-35.4); Mean Corpuscular Hemoglobin 29.6 pg (27.0-31.2); Mean Corpuscular Volume 87.8 fl (81-99); Mean Platelet Volume 10.2 fl (7.4-10.4); Monocytes # 0.6 K/mm3 (0.1-1.0); Monocytes % 7.8 % (1.7-9.3); Neutrophils # 4.4 K/mm3 (1.8-7.8); Neutrophils % 58.7 % (37.0-80.0); Platelet Count 266 K/mm3 (142-424); White Blood Count 7.5 K/mm3 (4.8-10.8)
--- NOTE | 2025-01-05 09:34 | PC.NURSE ---
pt is back in room form xray
--- NOTE | 2025-01-05 09:34 | PC.NURSE ---
pt returned from xr
--- NOTE | 2025-01-05 09:38 | PC.NURSE ---
Dr. Fletcher at bedside
[2025-01-05 09:42] LABS: Alanine Aminotransferase 18 U/L (12-78); Albumin Level 4.8 g/dl (3.5-5.0); Albumin/Globulin Ratio 1.8 (1.1-1.8); Alkaline Phosphatase 67 U/L (38-126); Anion Gap 10.8 mEq/L (5-15); Aspartate Amino Transferase 30 U/L (14-36); Bilirubin,Total 0.2 mg/dl (0.2-1.3); Blood Urea Nitrogen 10 mg/dl (7-17); Carbon Dioxide 31 mmol/L (22.0-30.0); Chloride 101 mmol/L (98-107); Creatinine Clearance Estimated 110 mL/min (50-200); Estimated Glomerular Filt Rate 91 ml/min (>60); GFR (African American) 110 ML/MIN (>60); Globulin 2.6 g/dL (1.3-3.2); Glucose 98 mg/dl (74-100); Lipase 40 U/L (23-300); Potassium 3.8 mmoL/L (3.5-5.1); Sodium 139 mmol/L (136-145); Total Protein,Serum 7.4 g/dl (6.3-8.2)
[2025-01-05 09:46] LABS: D-Dimer 0.34 ug/mL (0.0-0.5)
--- NOTE | 2025-01-05 09:54 | ED_ITS ---
Discharge Plan Disposition Patient Disposition: Home, Self-Care Condition: Good Prescriptions Prescriptions: New pantoprazole 40 mg tablet,delayed release (DR/EC) 40 mg PO DAILY Qty: 30 0RF alum-mag hydroxide-simeth [Maalox Advanced] 200-200-20 mg/5 mL suspension 5 ml PO Q3H PRN (Reason: dyspepsia) Qty: 3000 0RF hydroxyzine pamoate 25 mg capsule 25 mg PO Q8H PRN (Reason: panic attack(s)) Qty: 20 0RF No Action omeprazole 40 mg capsule,delayed release(DR/EC) 40 mg PO DAILY Qty: 30 2RF venlafaxine [Effexor XR] 150 mg capsule,extended release 24hr 150 mg PO DAILY Qty: 30 2RF propranolol 20 mg tablet 20 mg PO TIDP PRN (Reason: anxiety) Referrals Follow up/Referrals: Maeve Kruger APRN [Primary Care Provider] - See instructions Janett Pagan APRN [Nurse Practitioner] - See instructions Activity Restrictions/Add. Instructions Additional Instructions/Restrictions: You were evaluated in the emergency department today. At this time, your workup is reassuring. Please cook pickled meat your prescription for pantoprazole and take daily. Stop taking the omeprazole. See if switching helps you. Follow-up closely with your primary care provider. I am also prescribing a prescription for Maalox. Return to the emergency department for new or worsening symptoms. Clinical Impressions Clinical Impression: Chest pain, Chronic GERD, Anxiety Stand Alone Forms Stand Alone Forms: Work/School Release Instructions Patient Instructions: DI for Gastroesophageal Reflux Disease (GERD), DI for Atypical Chest Pain, DI for Anxiety -- Adult Print Language Print Language: Ukrainian Discharge ED Provider: Reema Fletcher HPI General Chief Complaint: Chest Pain Stated Complaint: Heartburn Time Seen by Provider: 01/05/25 09:07 Mode of Arrival: Ambulatory Source of Information: Patient Limitations: No Limitations Description of Symptoms (Recalled from ER Triage Doc. by RN): Patient reports right sided chest, shoulder and neck pain since yesterday. History of Present Illness HPI narrative: This patient is a 19-year-old female with a history of GERD, tobacco dependence, and prior cholecystectomy presenting to the emergency department for evaluation with concern for chest pain. Patient states that the left side of her chest going into her shoulder and neck have been hurting since yesterday. She notes that it has been constant, nothing seems to make it better or worse. She thought is maybe acid reflux so she tried a lot of [id number] medications, but nothing is helping. She states is worse when she breathes or talks, and she feels short of breath anytime she tries to talk. No fevers, cough, congestion, or other concerns noted. Related Data Home Medications ?Medication ?Instructions ?Recorded ?Confirmed propranolol 20 mg tablet 20 mg PO TIDP PRN anxiety 07/03/24 01/05/25 Previous Rx's ?Medication ?Instructions ?Recorded venlafaxine 150 mg 150 mg PO DAILY #30 caps 05/04/24 capsule,extended release 24 hr (Effexor XR) omeprazole 40 mg capsule,delayed 40 mg PO DAILY #30 caps 10/21/24 release aluminum-mag hydroxide-simethicone 5 ml PO Q3H PRN dyspepsia #3,000 mL 01/05/25 200 mg-200 mg-20 mg/5 mL oral susp (Maalox Advanced) hydroxyzine pamoate 25 mg capsule 25 mg PO Q8H PRN panic attack(s) 01/05/25 #20 caps pantoprazole 40 mg tablet,delayed 40 mg PO DAILY #30 tabs 01/05/25 release Allergies Allergy/AdvReac Type Severity Reaction Status Date / Time ciprofloxacin Allergy Unknown Vomiting Verified 12/23/24 15:51 ceftriaxone AdvReac Unknown Dizziness Verified 12/23/24 15:51 PFSH PFSH Disclaimer: The information contained in this section may have been updated after the patient was seen, as this information can be updated by other users. 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 Urinary tract infection due to Enterococcus ADHD (attention deficit hyperactivity disorder), combined type Chronic post-traumatic stress disorder (PTSD) Generalized anxiety disorder with panic attacks MDD (major depressive disorder), recurrent episode, moderate Anxiety and depression Dyspareunia Recurrent UTI Encounter for smoking cessation counseling Nicotine dependence Myofasciitis Depression Hearing loss Surgical History History of cholecystectomy History of placement of ear tubes Girard teeth extracted Family History Other No significant family history Social History Smoking Status: Current every day smoker tobacco type: e-cigarettes alcohol intake: current alcohol intake frequency: holidays/special occasions only substance use type: marijuana (Joanne reports smoking multiple blunts per day for calmness.) current occupational status: unemployed Travel in the last 8 weeks: None Have you lived/traveled outside [place] in past 30 days?: No Contact w/someone who lives/traveled outside US past 30 days?: No Exposure to someone with infectious disease in past 14 days?: No Do you have a fever (greater than 100.4 F or 38 C)?: No Have you tested positive for COVID-19: No Exposed to someone with COVID-19 in past 14 days?: No Do you have a sore throat?: No Do you have a cough?: No Do you have any weakness?: No Do you have any diarrhea?: No Are you experiencing any unusual bleeding?: No Do you have any muscle aches/pain?: No Do you have any abdominal pain?: No Are you experiencing loss of taste or smell?: No Other Medical History Have you received the Flu Vaccine for this season: No Have you received the Pneumonia Vaccine: No ROS Obtained: Yes All systems reviewed & no additional complaints except as documented Physical Exam General General appearance: alert and in no apparent distress Head Head exam: atraumatic and normocephalic Eye Eye exam: Present normal appearance, PERRL and EOMI ENT ENT exam: Present normal exam, normal oropharynx, mucous membranes moist and normal external ear exam Neck Neck exam: Present normal inspection, full ROM and trachea midline; Absent tenderness Chest Chest inspection: Present normal inspection and symmetric chest wall rise; Absent tenderness Respiratory Respiratory exam: Present normal lung sounds bilaterally; Absent respiratory distress, wheezes, stridor or accessory muscle use Cardiovascular Cardiovascular exam: Present normal rhythm and tachycardia Abdominal Exam Abdominal exam: Present soft; Absent distention, tenderness or guarding Extremities Exam Extremities exam: Present normal inspection, full ROM and normal capillary refill; Absent tenderness or edema Back Exam Back exam: Present normal inspection and full ROM; Absent tenderness Neurological Exam Neurological exam: Present alert, oriented X3, CN II-XII intact and normal gait; Absent motor sensory deficit Psychiatric Psychiatric exam: Present normal affect and normal mood Skin Skin exam: Present warm and dry HEART Score HEART Score HEART Score assessment performed?: Yes History (anamnesis): Slightly suspicious ECG: Normal Age: <45 years Risk factors: No known risk factors Troponin: </= normal limit HEART Score: 0 Critical Care Critical Care Time Critical Care Time: No Medical Decision Making Alex Inquiry Pt receiving controlled substance: No Vital Signs Vital Signs: 01/05/25 09:06 01/05/25 09:30 01/05/25 10:00 Temperature 98.0 F Temperature Source Oral Pulse Rate 90 93 H Pulse Rate [Radial] 81 Respiratory Rate 16 14 14 Blood Pressure 140/93 H 133/88 Blood Pressure [Right Arm] 152/89 H Blood Pressure Mean [Right Arm] 110 Blood Pressure Source Blood Pressure Source [Right Arm] Automatic Cuff Blood Pressure Position Blood Pressure Position [Right Arm] Sitting 02 Sat by Pulse Oximetry 98 100 98 Oxygen Delivery Method Room Air Room Air Room Air 01/05/25 10:36 01/05/25 11:00 01/05/25 11:30 Temperature 98.0 F Temperature Source Oral Pulse Rate 92 H 107 H 91 H Pulse Rate [Radial] Respiratory Rate 13 15 16 Blood Pressure 124/89 130/94 H 130/94 H Blood Pressure [Right Arm] Blood Pressure Mean [Right Arm] Blood Pressure Source Automatic Cuff Blood Pressure Source [Right Arm] Blood Pressure Position Sitting Blood Pressure Position [Right Arm] 02 Sat by Pulse Oximetry 98 97 Oxygen Delivery Method Room Air Room Air Room Air Lab Data Labs: Lab Results 01/05/25 09:24: WBC 7.5, RBC 4.50, Hgb 13.3, Hct 39.5, MCV 87.8, MCH 29.6, MCHC 33.7, RDW 13.0, Plt Count 266, MPV 10.2, Neut % (Auto) 58.7, Lymph % (Auto) 31.2, [place] % (Auto) 7.8, Eos % (Auto) 1.3, Baso % (Auto) 0.7, Neut # (Auto) 4.4, Lymph # (Auto) 2.4, [place] # (Auto) 0.6, Eos # (Auto) 0.1, Baso # (Auto) 0.1, D- Dimer 0.34, Sodium 139, Potassium 3.8, Chloride 101, Carbon Dioxide 31 H, Anion Gap 10.8, BUN 10, Creatinine 0.80, Estimated Creat Clear 110, Estimated GFR 91, Est GFR ( Amer) 110, Glucose 98, Calcium 9.0, Total Bilirubin 0.2, AST 30, ALT 18, Alkaline Phosphatase 67, Troponin I < 0.01, Total Protein 7.4, Albumin 4.8, Globulin 2.6, Albumin/Globulin Ratio 1.8, Lipase 40, Serum HCG, Qual Negative, HCV Ab SAMEER w/Rflx PCR Qn Negative, HIV Ag/Ab Combo Qual Negative 01/05/25 09:24 01/05/25 09:24 Response Orders (Tests/Meds): ED MEDICATIONS Discontinued Medications Generic Name Dose Route Start Last Admin Trade Name Freq PRN Reason Stop Dose Admin Acetaminophen 1,000 mg 01/05/25 10:09 01/05/25 10:26 Acetaminophen 1,000mg/100ml Vial IV 01/05/25 10:10 1,000 mg ONCE ONE Administration Belladonna Alkaloids 60 ml 01/05/25 10:09 01/05/25 10:26 Belladonna Alkaloids 60 Ml Ml PO 01/05/25 10:10 60 ml ONCE ONE Administration Famotidine 20 mg 01/05/25 10:10 01/05/25 10:27 Famotidine 20mg/2ml Vial IV 01/05/25 10:11 20 mg ONCE ONE Administration Ketorolac Tromethamine 15 mg 01/05/25 10:09 01/05/25 10:26 Ketorolac 30mg/Ml Vial IV 01/05/25 10:10 15 mg ONCE ONE Administration Sodium Chloride 8 ml 01/05/25 10:10 01/05/25 10:26 Sodium Chloride 0.9% 10ml Vial IV 02/04/25 10:09 8 ml NEEDED PRN Administration dilute pepcid ORDERS Category Date Time Status CXR 2 view (NOT portable) [XR chest 2V] Stat Exams 01/05/25 09:18 Completed Complete Blood Count Auto Diff Stat Lab 01/05/25 09:24 Completed Comprehensive Metabolic Panel Stat Lab 01/05/25 09:24 Completed D-Dimer Stat Lab 01/05/25 09:24 Completed HIV Combo Stat Lab 01/05/25 09:24 Completed Hepatitis C Ab Qual. W/ RFX Stat Lab 01/05/25 09:24 Completed Lipase Stat Lab 01/05/25 09:24 Completed Serum [HCG Qualitative, Serum] Stat Lab 01/05/25 09:24 Completed Trop I [Troponin I] Stat Lab 01/05/25 09:24 Completed ECG Data Tracing #1: Attestation: I reviewed this ECG and interpreted as documented below: ECG Narrative: Normal sinus rhythm with a ventricular rate of 90 bpm. Sinus arrhythmia. No acute ST changes concerning for ischemia. RSR prime in V1/V2. ECG initial impression date: 01/05/25 ECG initial impression time: 09:12 MDM Narrative Medical Decision Narrative: In summary, this patient is a 19-year-old female presenting to the Emergency Department for evaluation of chest pain. Differential diagnoses considered include but are not limited to ACS, dysrhythmia, GERD, costochondritis, PE, pneumonia, pneumothorax. Ruling out the most morbid conditions drove assessment. It should be noted patient's history includes nicotine dependence, GERD which are not at goal therapy. This complicates all aspects of care by increasing patient's risk for morbidity. On exam, the patient is lying in bed in no acute distress. Cardiopulmonary exam is reassuring. She is mildly tachycardic but otherwise vitals are reassuring including cardiac telemetry. She is not tachypneic or hypoxic. Cannot use PERC criteria to exclude PE, as the patient is mildly tachycardic. Workup included CBC, CMP, troponin, D-dimer, two-view chest x-ray. I independently interpreted x-ray prior to the radiologist read and noted no obvious large pneumothorax, no large focal consolidation concerning for pneumonia. Please see their read for final interpretation. Labs were obtained that demonstrated negative D-dimer, which is reassuring. Given this, I feel PE is very unlikely and I do not feel that further evaluation for this is indicated. Chemistry is reassuring with negative troponin.. Patient was given oral GI cocktail, IV Toradol, IV Tylenol. On reassessment, patient had good improvement after administration of interventions above. Vitals are normal on cardiac telemetry. She is tearful and states that she is under a great deal of stress and has a lot of things going on and thinks that she needs therapy. She denies any SI, HI, or other concern. She states she has been panicking and getting anxious a lot. Given this, will prescribe Vistaril, as this could be contributing to her chest pain. I gave her instructions for follow-up closely with primary care as well as behavioral health. I gave her strict return precautions and changed her PPI from omeprazole to pantoprazole. Patient was given strict return precautions and instructions for close follow-up
[2025-01-05 09:56] LABS: Troponin I < 0.01 ng/ml (0.00-0.034)
[2025-01-05 10:00] VITALS: BP 133/88; PULSE 93; RESP 14; O2SAT 98
[2025-01-05] MEDS: ACETAMINOPHEN 1,000MG/100ML VIAL 1000 MG IV (10:26)
[2025-01-05] MEDS: BELLADONNA ALKALOIDS 60 ML ML PO (10:26)
[2025-01-05] MEDS: SODIUM CHLORIDE 0.9% 10ML VIAL 8 ML IV (10:26)
[2025-01-05] MEDS: KETOROLAC 30MG/ML VIAL 15 MG IV (10:26)
[2025-01-05] MEDS: FAMOTIDINE 20MG/2ML VIAL 20 MG IV (10:27)
[2025-01-05 10:36] VITALS: BP 124/89; PULSE 92; RESP 13; O2SAT 98
[2025-01-05 10:41] LABS: HIV Combo NEGATIVE (Negative)
[2025-01-05 10:49] LABS: Hepatitis C Ab Qual. W/ RFX NEGATIVE (Negative)
[2025-01-05 10:54] LABS: HCG Qualitative, Serum Negative (Negative)
[2025-01-05 11:00] VITALS: BP 130/94; PULSE 107; RESP 15; O2SAT 97
--- NOTE | 2025-01-05 11:14 | PC.NURSE ---
DR KELLY AT BEDSIDE TO UPDATE PT
--- NOTE | 2025-01-05 11:18 | PC.NURSE ---
ROUNDED ON THE PT. THE PT VOICES THAT SHE DOES NOT NEED ANYTHING AT THIS TIME. CALL LIGHT IS WITHIN REACH OF THE PT.
[2025-01-05 11:30] VITALS: BP 130/94; PULSE 91; RESP 16; TEMP 36.7; O2SAT 96
== END 2025-01-05 11:30 | disposition home or self-care (01) ==
PROVIDERS: Emergency Provider Emergency Medicine; PCP Nurse Practitioner
DX: R07.9 Chest pain, unspecified (principal); K21.9 Gastro-esophageal reflux disease without esophagitis; F41.9 Anxiety disorder, unspecified; M25.512 Pain in left shoulder; M54.2 Cervicalgia
CPT/HCPCS: 71046; 80053; 83690; 84484; 84703; 85025; 85378; 86803; 87389; 93005; 96374; 96375; 99284; J0131; J1885; S0028

== ENCOUNTER 2025-01-09 09:52 | Emergency (ER) | payer BC, SELFPAY ==
[2025-01-09] VITALS (10 sets, daily range): BP systolic 111–145; BP diastolic 56–95; PULSE 60–92; RESP 16–20; TEMP 36.6–36.7; O2SAT 96–99; BMI 23.6
--- NOTE | 2025-01-09 10:05 | PC.NURSE ---
DR RAGLAND AT [facility]
--- NOTE | 2025-01-09 10:12 | XR_ITS ---
PROCEDURE INFORMATION: Exam: XR Chest Exam date and time: 01/09/2025 10:49 AM Age: 19 years old Clinical indication: Pain; Chest pressure; Additional info: Chest pain TECHNIQUE: Imaging protocol: Radiologic exam of the chest. Views: 1 view. COMPARISON: CR XR CHEST 2V 01/05/2025 9:22 AM FINDINGS: Lungs: Lungs are clear. No consolidation. Pleural spaces: No pleural effusion. No pneumothorax. Heart/Mediastinum: Cardiomediastinal silhouette is normal. Bones/joints: No acute abnormality. IMPRESSION: No acute findings.
[2025-01-09] MEDS: BELLADONNA ALKALOIDS 60 ML ML PO (10:21)
--- NOTE | 2025-01-09 10:21 | HMH.EDGENADL ---
Discharge Plan Disposition Patient Disposition: Home, Self-Care Prescriptions Prescriptions: New ondansetron 4 mg tablet,disintegrating 4 mg PO Q8H PRN (Reason: nausea and vomiting) 4 Days Qty: 12 0RF No Action bupropion HCl 150 mg tablet extended release 24 hr 150 mg PO DAILY Qty: 30 2RF pantoprazole 40 mg tablet,delayed release (DR/EC) 40 mg PO DAILY Qty: 30 0RF alum-mag hydroxide-simeth [Maalox Advanced] 200-200-20 mg/5 mL suspension 5 ml PO Q3H PRN (Reason: dyspepsia) Qty: 3000 0RF hydroxyzine pamoate 25 mg capsule 25 mg PO Q8H PRN (Reason: panic attack(s)) Qty: 20 0RF Referrals Follow up/Referrals: Maeve Kruger APRN [Primary Care Provider] - See instructions Activity Restrictions/Add. Instructions Additional Instructions/Restrictions: At this time it was felt you are safe to be discharged home. If new or worsening symptoms please do not hesitate to return the emergency department. If symptoms persist please call and schedule an appoint with Dr. Romero (heart doctor) and continue to follow-up with your GI doctor as discussed. Please take your medications as prescribed. Clinical Impressions Clinical Impression: Chest pain, H/O gastroesophageal reflux (GERD) Print Language Print Language: Malay Discharge ED Provider: Sandor Oneill General Adult HPI General Chief complaint: Recheck/Abnormal Lab/Rx Stated complaint: heartburn Time Seen by Provider: 01/09/25 09:55 History of Present Illness HPI narrative: Patient is a 19-year-old female with past medical history of GERD not at goal therapy who presents emergency department for evaluation of chest discomfort epigastric burning. History is obtained by patient at bedside and per chart review. Patient has had chest pressure going on for the better part of a week, she has multiple stressful things at home that she suspects are contributing to this. She also has epigastric burning reflux-like pain that is worse with p.o. intake. She was recently seen in the emergency department discharged with PPI and hydroxyzine for which she has been compliant. No new or worsening symptoms just persistent causing her to present here for continued evaluation. Related Data Previous Rx's ?Medication ?Instructions ?Recorded aluminum-mag hydroxide-simethicone 5 ml PO Q3H PRN dyspepsia #3,000 mL 01/05/25 200 mg-200 mg-20 mg/5 mL oral susp (Maalox Advanced) hydroxyzine pamoate 25 mg capsule 25 mg PO Q8H PRN panic attack(s) 01/05/25 #20 caps pantoprazole 40 mg tablet,delayed 40 mg PO DAILY #30 tabs 01/05/25 release bupropion HCl 150 mg 24 hr tablet, 150 mg PO DAILY #30 tabs 01/06/25 extended release ondansetron 4 mg disintegrating 4 mg PO Q8H PRN nausea and 01/09/25 tablet vomiting 4 days #12 tabs Allergies Allergy/AdvReac Type Severity Reaction Status Date / Time ciprofloxacin Allergy Unknown Vomiting Verified 01/06/25 14:07 ceftriaxone AdvReac Unknown Dizziness Verified 01/06/25 14:07 [facility] Disclaimer: The information contained in this section may have been updated after the patient was seen, as this information can be updated by other users. 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 Urinary tract infection due to Enterococcus ADHD (attention deficit hyperactivity disorder), combined type Chronic post-traumatic stress disorder (PTSD) Generalized anxiety disorder with panic attacks MDD (major depressive disorder), recurrent episode, moderate Anxiety and depression Dyspareunia Recurrent UTI Encounter for smoking cessation counseling Nicotine dependence Myofasciitis Depression Hearing loss Surgical History History of cholecystectomy History of placement of ear tubes [place] teeth extracted Family History Other No significant family history Social History (Updated 01/06/25 @ 14:07 by Brianna Urena MA) Smoking Status: Current every day smoker tobacco type: e-cigarettes alcohol intake: current alcohol intake frequency: holidays/special occasions only substance use type: marijuana (Joanne reports smoking multiple blunts per day for calmness.) current occupational status: unemployed Travel in the last 8 weeks: None Have you lived/traveled outside US in past 30 days?: No Contact w/someone who lives/traveled outside US past 30 days?: No Exposure to someone with infectious disease in past 14 days?: No Do you have a fever (greater than 100.4 F or 38 C)?: No Have you tested positive for COVID-19: No Exposed to someone with COVID-19 in past 14 days?: No Do you have a sore throat?: No Do you have a cough?: No Do you have any weakness?: No Do you have any diarrhea?: No Are you experiencing any unusual bleeding?: No Do you have any muscle aches/pain?: No Do you have any abdominal pain?: No Are you experiencing loss of taste or smell?: No Other Medical History Have you received the Flu Vaccine for this season: No Have you received the Pneumonia Vaccine: No ROS Obtained: Yes Systems reviewed as appropriate & no additional complaints except as documented Physical Exam General General appearance: alert and in no apparent distress Head Head exam: atraumatic and normocephalic Eye Eye exam: Present PERRL ENT ENT exam: Present mucous membranes moist Neck Neck exam: Present normal inspection Chest Chest inspection: Present normal inspection and symmetric chest wall rise Respiratory Respiratory exam: Present normal lung sounds bilaterally; Absent respiratory distress Cardiovascular Cardiovascular exam: Present regular rate and normal rhythm Abdominal Exam Abdominal exam: Present soft; Absent tenderness, guarding or rebound Extremities Exam Extremities exam: Present normal inspection Neurological Exam Neurological exam: Present alert Psychiatric Psychiatric exam: Present normal affect Skin Skin exam: Present warm and dry Medical Decision Making Medical Records Screening: Per USPSTF and CDC recommendations, given the prevalence of disease in our region, it is our hospital?s policy to screen for HIV and viral Hepatitis for all patients aged 18 and over and those with ongoing risk factors. Alex Inquiry Pt receiving controlled substance: No Vital Signs: 01/09/25 09:53 01/09/25 10:00 01/09/25 10:15 Temperature 97.8 F Temperature Source Oral Pulse Rate 89 75 Pulse Rate [Right] 88 Respiratory Rate 20 Blood Pressure 145/56 H 121/71 Blood Pressure [Right Arm] 141/90 H Blood Pressure Mean [Right Arm] 107 Blood Pressure Source [Right Arm] Automatic Cuff 02 Sat by Pulse Oximetry 97 98 96 Oxygen Delivery Method Room Air Room Air Room Air 01/09/25 10:29 01/09/25 10:45 01/09/25 11:06 Temperature Temperature Source Pulse Rate 92 H 60 Pulse Rate [Right] Respiratory Rate Blood Pressure 141/95 H 111/58 L Blood Pressure [Right Arm] Blood Pressure Mean [Right Arm] Blood Pressure Source [Right Arm] 02 Sat by Pulse Oximetry 97 99 99 Oxygen Delivery Method Room Air Room Air Room Air Lab Data Lab Results 01/09/25 10:16: WBC 7.5, RBC 4.15 L, Hgb 12.4, Hct 37.0, MCV 89.2, MCH 29.9, MCHC 33.5, RDW 12.9, Plt Count 256, MPV 10.3, Neut % (Auto) 60.9, Lymph % (Auto) 30.9, Wilkinson % (Auto) 5.3, Eos % (Auto) 2.1, Baso % (Auto) 0.5, Neut # (Auto) 4.6, Lymph # (Auto) 2.3, Wilkinson # (Auto) 0.4, Eos # (Auto) 0.2, Baso # (Auto) 0.0, Sodium 137, Potassium 4.4, Chloride 106, Carbon Dioxide 25, Anion Gap 10.4, BUN 9, Creatinine 0.60, Estimated GFR 126, Est GFR ( Amer) 153, Glucose 109 H, Calcium 8.9, Total Bilirubin 0.2, AST 27, ALT 19, Alkaline Phosphatase 54, Total Protein 7.3, Albumin 4.7, Globulin 2.6, Albumin/Globulin Ratio 1.8, Lipase 41 01/09/25 10:16 01/09/25 10:16 Orders (Tests/Meds): ED MEDICATIONS Discontinued Medications Generic Name Dose Route Start Last Admin Trade Name Freq PRN Reason Stop Dose Admin Belladonna Alkaloids 60 ml 01/09/25 10:12 01/09/25 10:21 Belladonna Alkaloids 60 Ml Ml PO 01/09/25 10:13 60 ml ONCE ONE Administration ORDERS Category Date Time Status CXR --portable [XR chest portable] Stat Exams 01/09/25 10:12 Completed CBC w/Auto Diff [Complete Blood Count Auto Diff] Stat Lab 01/09/25 10:16 Completed CMP [Comprehensive Metabolic Panel] Stat Lab 01/09/25 10:16 Results Lipase Stat Lab 01/09/25 10:16 Results Trop I [Troponin I] Stat Lab 01/09/25 10:16 Results Troponin I Q3H Lab 01/09/25 13:15 Ordered Troponin I Q3H Lab 01/09/25 16:15 Ordered ECG Data Tracing #1: Independently interpreted by me rate is 75, rhythm is regular, axis is normal, no ST elevation in anatomical contiguous leads, QTc 411. HEART Score History (anamnesis): Slightly suspicious ECG: Normal Age: <45 years Risk factors: No known risk factors Troponin: </= normal limit HEART Score: 0 Medical Decision Narrative: In summary patient is a 19-year-old female past medical history described above who presents emergency department for evaluation of chest pain and epigastric burning pain. Patient is hemodynamically stable nontoxic-appearing arrival, afebrile. Previous workup by Dr. Fletcher reviewed by me, initial troponin was undetectably low, hCG was negative, D-dimer excluded pulmonary embolism and low risk aortic dissection. Given this I suspect the majority of her symptoms are due to stress and GERD that is not at goal therapy. Differential however does include ACS so workup will be conducted with hematologic labs, chest x-ray. Initial inventions include GI cocktail. hCG and D-dimer will not be repeated given that they were conducted 4 days ago. Initial workup reviewed by me, hematologic labs are nonactionable, no significant leukocytosis or anemia no JANUARY or critical electrolyte abnormality. Initial troponin undetectably low. Upon repeat evaluation patient continued to be well-appearing. Chest x-ray informally interpreted by me no acute lobar opacities or large pneumothorax. Formal read shows no acute findings. Given this patient is appropriate for outpatient management at this time was given return precautions. Critical Care Critical Care Time Critical Care Time: No
[2025-01-09 10:28] LABS: Albumin Level 4.7 g/dl (3.5-5.0); Chloride 106 mmol/L (98-107); Potassium 4.4 mmoL/L (3.5-5.1); Sodium 137 mmol/L (136-145)
--- NOTE | 2025-01-09 10:28 | ECG_ITS ---
APPROVED REPORT Exam: Resting ECG HR:75 bpm ECG Measurements Heart Rate 75 AXES MI 136 P 60 QRSd 93 QRS 80 QT 382 T 63 QTc 411 Conclusion SINUS RHYTHM WITH SINUS ARRHYTHMIA POSSIBLE RIGHT VENTRICULAR CONDUCTION DELAY [RSR (QR) IN V1/V2] BORDERLINE ECG Electronically signed by : TEN HARRINGTON, 01/09/2025 23:24:59
[2025-01-09 10:29] LABS: Basophils % 0.5 % (0.1-2.0); Eosinophils # 0.2 K/mm3 (0.0-0.4); Eosinophils % 2.1 % (0.1-12.0); Hemoglobin 12.4 g/dL (12.2-16.2); Lymphocytes # 2.3 K/mm3 (0.7-4.5); Lymphocytes % 30.9 % (10-50); Mean Corpuscular HGB Conc 33.5 g/dL (31.8-35.4); Mean Corpuscular Hemoglobin 29.9 pg (27.0-31.2); Mean Corpuscular Volume 89.2 fl (81-99); Mean Platelet Volume 10.3 fl (7.4-10.4); Monocytes # 0.4 K/mm3 (0.1-1.0); Monocytes % 5.3 % (1.7-9.3); Neutrophils # 4.6 K/mm3 (1.8-7.8); Neutrophils % 60.9 % (37.0-80.0); Platelet Count 256 K/mm3 (142-424); Red Blood Count 4.15 M/mm3 (4.20-5.40); Red Cell Distribution Width 12.9 % (11.5-17.5); White Blood Count 7.5 K/mm3 (4.8-10.8)
[2025-01-09 10:31] LABS: Alanine Aminotransferase 19 U/L (12-78); Albumin/Globulin Ratio 1.8 (1.1-1.8); Alkaline Phosphatase 54 U/L (38-126); Anion Gap 10.4 mEq/L (5-15); Aspartate Amino Transferase 27 U/L (14-36); Bilirubin,Total 0.2 mg/dl (0.2-1.3); Blood Urea Nitrogen 9 mg/dl (7-17); Calcium 8.9 mg/dl (8.4-10.2); Carbon Dioxide 25 mmol/L (22.0-30.0); Estimated Glomerular Filt Rate 126 ml/min (>60); GFR (African American) 153 ML/MIN (>60); Globulin 2.6 g/dL (1.3-3.2); Glucose 109 mg/dl (74-100); Lipase 41 U/L (23-300); Total Protein,Serum 7.3 g/dl (6.3-8.2)
--- NOTE | 2025-01-09 10:37 | PC.NURSE ---
ROUNDED ON THE PT. THE PT VOICES THAT SHE DOES NOT NEED ANYTHING AT THIS TIME. CALL LIGHT IS WITHIN REACH OF THE PT.
--- NOTE | 2025-01-09 10:48 | PC.NURSE ---
XR AT BEDSIDE
--- NOTE | 2025-01-09 11:07 | PC.NURSE ---
rounded on patient. put BP cuff back on, she took it off.
--- NOTE | 2025-01-09 11:38 | PC.NURSE ---
ROUNDED ON THE PT. THE PT VOICES THAT SHE DOES NOT NEED ANYTHING AT THIS TIME. CALL LIGHT IS WITHIN REACH OF THE PT.
[2025-01-09 11:44] LABS: Troponin I < 0.01 ng/ml (0.00-0.034)
== END 2025-01-09 11:55 | disposition home or self-care (01) ==
PROVIDERS: Emergency Provider Emergency Medicine; PCP Nurse Practitioner
DX: R07.9 Chest pain, unspecified (principal); R12 Heartburn; F17.290 Nicotine dependence, other tobacco product, uncomplicated; Z87.19 Personal history of other diseases of the digestive system
CPT/HCPCS: 71045; 80053; 83690; 84484; 85025; 93005; 99284

== ENCOUNTER 2025-02-15 21:46 | Emergency (ER) | payer SELFPAY ==
[2025-02-15 21:58] VITALS: BP 127/74; PULSE 90; RESP 20; TEMP 36.9; O2SAT 98; BMI 21.4
[2025-02-15] MEDS: BELLADONNA ALKALOIDS 60 ML ML PO (22:04)
[2025-02-15] MEDS: ONDANSETRON 4MG ODT 4 MG SL (22:29)
[2025-02-15] MEDS: FAMOTIDINE 20MG TABLET 40 MG PO (22:30)
[2025-02-15 22:36] VITALS: BP 121/70; PULSE 78; RESP 12; TEMP 36.6; O2SAT 100
--- NOTE | 2025-02-15 23:26 | ED_ITS ---
Discharge Plan Disposition Patient Disposition: Home, Self-Care Condition: Good Prescriptions Prescriptions: New ondansetron 4 mg tablet,disintegrating 4 mg PO Q8H PRN (Reason: nausea and vomiting) 4 Days Qty: 10 1RF famotidine [Pepcid] 20 mg tablet 20 mg PO BID 42 Days Qty: 84 0RF alum-mag hydroxide-simeth [Maalox Maximum Strength] 400-400-40 mg/5 mL suspension 5 ml PO QID PRN (Reason: indigestion) Qty: 3000 0RF No Action bupropion HCl 150 mg tablet extended release 24 hr 150 mg PO DAILY Qty: 30 2RF pantoprazole 40 mg tablet,delayed release (DR/EC) 40 mg PO DAILY Qty: 90 1RF alum-mag hydroxide-simeth [Maalox Advanced] 200-200-20 mg/5 mL suspension 5 ml PO Q3H PRN (Reason: dyspepsia) Qty: 3000 0RF hydroxyzine pamoate 25 mg capsule 25 mg PO Q8H PRN (Reason: panic attack(s)) Qty: 20 0RF ondansetron 4 mg tablet,disintegrating 4 mg PO Q8H PRN (Reason: nausea and vomiting) 4 Days Qty: 12 0RF Referrals Follow up/Referrals: Maeve Kruger APRN [Primary Care Provider] - See instructions Junior Donahue II, MD [Staff Physician] - See instructions Activity Restrictions/Add. Instructions Additional Instructions/Restrictions: You were evaluated in the emergency department today. Please continue taking your pantoprazole at home as prescribed. Follow-up very closely outpatient with primary care as well as with GI. It is very important to see GI soon as possible. Return to the emergency department for new or worsening symptoms. Clinical Impressions Clinical Impression: Chronic GERD Instructions Patient Instructions: Gastroesophageal Reflux Disease (Alternative Therapy), DI for Gastroesophageal Reflux Disease (GERD), Gastroesophageal Reflux Disorder (GERD) Diet Print Language Print Language: [place] Discharge ED Provider: Reema Fletcher General Adult HPI General Chief complaint: Abdominal Pain Stated complaint: abd pain Time Seen by Provider: 02/15/25 22:01 Mode of Arrival: Ambulatory Source of Information: Patient Description of Symptoms (Recalled from ER Triage Doc. by RN): pt reports heartburn for the past 5 months, pt has been seen previously without relief. pt reports this episode began at 6am, she has been unable to eat due to this. pt has been nauseated as well, History of Present Illness HPI narrative: This patient is a 19-year-old female with a history of chronic GERD not at goal therapy presenting to the emergency department for evaluation with concern for acid reflux. She states that despite taking her home pantoprazole and also trying other medications, such as Maalox and Pepcid, she has had intractable acid reflux. She notes that she has stomach acid, up into her throat and nose, she has burning, and she vomits stomach acid. She is coming in requesting a GI cocktail because she states is the only thing that helps get her relief. She has not yet been able to follow-up with GI as an outpatient because she has had insurance issues. No other new concerns or complaints noted at this time. Related Data Previous Rx's ?Medication ?Instructions ?Recorded aluminum-mag hydroxide-simethicone 5 ml PO Q3H PRN dyspepsia #3,000 mL 01/05/25 200 mg-200 mg-20 mg/5 mL oral susp (Maalox Advanced) hydroxyzine pamoate 25 mg capsule 25 mg PO Q8H PRN panic attack(s) 01/05/25 #20 caps bupropion HCl 150 mg 24 hr tablet, 150 mg PO DAILY #30 tabs 01/06/25 extended release ondansetron 4 mg disintegrating 4 mg PO Q8H PRN nausea and 01/09/25 tablet vomiting 4 days #12 tabs pantoprazole 40 mg tablet,delayed 40 mg PO DAILY #90 tabs 02/09/25 release aluminum-mag hydroxide-simethicone 5 ml PO QID PRN indigestion #3,000 02/15/25 400 mg-400 mg-40 mg/5 mL oral susp mL (Maalox Maximum Strength) famotidine 20 mg tablet (Pepcid) 20 mg PO BID 6 weeks #84 tabs 02/15/25 ondansetron 4 mg disintegrating 4 mg PO Q8H PRN nausea and 02/15/25 tablet vomiting 4 days #10 tabs Allergies Allergy/AdvReac Type Severity Reaction Status Date / Time ciprofloxacin Allergy Unknown Vomiting Verified 01/06/25 14:07 ceftriaxone AdvReac Unknown Dizziness Verified 01/06/25 14:07 [facility] Disclaimer: The information contained in this section may have been updated after the patient was seen, as this information can be updated by other users. 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 Urinary tract infection due to Enterococcus ADHD (attention deficit hyperactivity disorder), combined type Chronic post-traumatic stress disorder (PTSD) Generalized anxiety disorder with panic attacks MDD (major depressive disorder), recurrent episode, moderate Anxiety and depression Dyspareunia Recurrent UTI Encounter for smoking cessation counseling Nicotine dependence Myofasciitis Depression Hearing loss Surgical History History of cholecystectomy History of placement of ear tubes [place] teeth extracted Family History Other No significant family history Social History Smoking Status: Current every day smoker tobacco type: e-cigarettes alcohol intake: current alcohol intake frequency: holidays/special occasions only substance use type: marijuana (Joanne reports smoking multiple blunts per day for calmness.) current occupational status: unemployed Travel in the last 8 weeks: None Have you lived/traveled outside US in past 30 days?: No Contact w/someone who lives/traveled outside US past 30 days?: No Exposure to someone with infectious disease in past 14 days?: No Do you have a fever (greater than 100.4 F or 38 C)?: No Have you tested positive for COVID-19: No Exposed to someone with COVID-19 in past 14 days?: No Do you have a sore throat?: No Do you have a cough?: No Do you have any weakness?: No Do you have any diarrhea?: No Are you experiencing any unusual bleeding?: No Do you have any muscle aches/pain?: No Do you have any abdominal pain?: Yes Are you experiencing loss of taste or smell?: No Other Medical History Have you received the Flu Vaccine for this season: No Have you received the Pneumonia Vaccine: No ROS Obtained: Yes All systems reviewed & no additional complaints except as documented Physical Exam General General appearance: alert and in no apparent distress Head Head exam: atraumatic and normocephalic Eye Eye exam: Present normal appearance, PERRL and EOMI ENT ENT exam: Present normal exam, normal oropharynx, mucous membranes moist and normal external ear exam Neck Neck exam: Present normal inspection, full ROM and trachea midline; Absent tenderness Chest Chest inspection: Present normal inspection and symmetric chest wall rise; Absent tenderness Respiratory Respiratory exam: Present normal lung sounds bilaterally; Absent respiratory distress, wheezes, stridor or accessory muscle use Cardiovascular Cardiovascular exam: Present regular rate and normal rhythm Abdominal Exam Abdominal exam: Present soft; Absent distention, tenderness or guarding Extremities Exam Extremities exam: Present normal inspection, full ROM and normal capillary refill; Absent tenderness or edema Back Exam Back exam: Present normal inspection and full ROM; Absent tenderness Neurological Exam Neurological exam: Present alert, oriented X3, CN II-XII intact and normal gait; Absent motor sensory deficit Psychiatric Psychiatric exam: Present normal affect and normal mood Skin Skin exam: Present warm and dry Medical Decision Making Medical Records Medical records reviewed: Yes I reviewed the patient's medical records. Screening: Per USPSTF and CDC recommendations, given the prevalence of disease in our region, it is our hospital?s policy to screen for HIV and viral Hepatitis for all patients aged 18 and over and those with ongoing risk factors. Alex Inquiry Pt receiving controlled substance: No Vital Signs: 02/15/25 21:58 02/15/25 22:36 Temperature 98.4 F 98 F Temperature Source Oral Oral Pulse Rate 78 Pulse Rate [Right] 90 Respiratory Rate 20 12 Blood Pressure 121/70 Blood Pressure [Right Arm] 127/74 Blood Pressure Mean [Right Arm] 91 Blood Pressure Position Sitting 02 Sat by Pulse Oximetry 98 Oxygen Delivery Method Room Air Room Air Lab Data Lab results reviewed: Yes I reviewed the patient's lab results. Orders (Tests/Meds): ED MEDICATIONS Discontinued Medications Generic Name Dose Route Start Last Admin Trade Name Freq PRN Reason Stop Dose Admin Belladonna Alkaloids 60 ml 02/15/25 21:59 02/15/25 22:04 Belladonna Alkaloids 60 Ml Ml PO 02/15/25 22:00 60 ml ONCE ONE Administration Famotidine 40 mg 02/15/25 22:23 02/15/25 22:30 Famotidine 20mg Tablet PO 02/15/25 22:24 40 mg ONCE ONE Administration Ondansetron HCl 4 mg 02/15/25 22:23 02/15/25 22:29 Ondansetron 4mg Odt SL 02/15/25 22:24 4 mg ONCE ONE Administration Medical Decision Narrative: In summary, this patient is a 19-year-old female presenting to the Emergency [facility] for evaluation of acid reflux. Differential diagnoses considered include but are not limited to GERD, acid reflux, peptic ulcer disease, H. pylori, Jacobson's esophagus. Ruling out the most morbid conditions drove assessment. It should be noted patient's history includes GERD which is not at goal therapy. This complicates all aspects of care by increasing patient's risk for morbidity. I reviewed patient's past medical records and noted previous evaluations in the ED for similar symptoms. She has had negative chest pains workup.. On exam, the patient is sitting upright in no acute distress. She states that all she wants is a GI cocktail and go home so she can get some rest for work. We discussed the importance of outpatient follow-up with GI. She was given oral GI cocktail, Pepcid, and Zofran with good improvement. At this time, it is felt she is appropriate for discharge home with close follow-up with primary care and GI. Strict return precautions given. Critical Care Critical Care Time Critical Care Time: No
== END 2025-02-15 22:37 | disposition home or self-care (01) ==
PROVIDERS: Emergency Provider Emergency Medicine; PCP Nurse Practitioner
DX: K21.9 Gastro-esophageal reflux disease without esophagitis (principal); R12 Heartburn; R11.0 Nausea; R63.8 Other symptoms and signs concerning food and fluid intake; F17.210 Nicotine dependence, cigarettes, uncomplicated
CPT/HCPCS: 99283; Q0162

== ENCOUNTER 2025-03-10 07:40 | Day surgery (SDC) | payer OTHER, SELFPAY ==
[2025-03-08 16:58] VITALS: BMI 23.3
[2025-03-10 07:58] LABS: Urine Pregnancy, HCG Qual. Negative (Negative)
[2025-03-10 08:00] VITALS: BP 113/72; PULSE 64; RESP 18; TEMP 36.4; O2SAT 100
[2025-03-10] MEDS: LACTATED RINGERS 1000ML 1,000 ML 50 ML IV (08:07)
--- NOTE | 2025-03-10 08:14 | EXP.ANES.CKL ---
[facility] Disclaimer: The information contained in this section may have been updated after the patient was seen, as this information can be updated by other users. 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 Chronic post-traumatic stress disorder (PTSD) Generalized anxiety disorder with panic attacks MDD (major depressive disorder), recurrent episode, moderate Anxiety and depression Dyspareunia Recurrent UTI Encounter for smoking cessation counseling Nicotine dependence Myofasciitis Depression Hearing loss Surgical History History of cholecystectomy History of placement of ear tubes [place] teeth extracted Family History Other No significant family history Social History (Updated 03/10/25 @ 07:57 by Jessy Verdugo RN) Smoking Status: Current every day smoker tobacco type: e-cigarettes alcohol intake: never substance use type: marijuana (Joanne reports smoking multiple blunts per day for calmness.) current occupational status: unemployed Travel in the last 8 weeks: None Have you lived/traveled outside US in past 30 days?: No Contact w/someone who lives/traveled outside US past 30 days?: No Exposure to someone with infectious disease in past 14 days?: No Do you have a fever (greater than 100.4 F or 38 C)?: No Have you tested positive for COVID-19: No Exposed to someone with COVID-19 in past 14 days?: No Do you have a sore throat?: No Do you have a cough?: No Do you have any weakness?: No Do you have any diarrhea?: No Are you experiencing any unusual bleeding?: No Do you have any muscle aches/pain?: No Do you have any abdominal pain?: No Are you experiencing loss of taste or smell?: No [facility] Anesthesia Checklist Patient Identification Patient Identification: Arm Band Structural Data Admitted From: Home Planned Operative Procedure/s: EGD Consent for Planned Operative Procedure(s) Verified: Yes Verified Documents: Surgical Consent and History and Physical NPO Status Verified Time NPO: 00:00 Additional verifications Anesthesia Reactions: No Airway Assessment Mallampati Score:: Class I C-Spine Mobility Assessed: Yes TMJ Mobility Assessed: Yes Dentition: Good Dentition Neurological Assessment Level of Consciousness: Awake, Alert and Appropriate Anesthesia Plan Anesthesia Risk discussed: Yes Anesthesia Plan: Verified ASA Class: II Anesthesia Type: MAC
--- NOTE | 2025-03-10 09:15 | EXP.HP ---
History of Present Illness *Admission Date: 03/10/25 *Reason for visit:: Reflux/nausea/loss of appetite *History of present illness: Ms. Alba is a 19-year-old female with nausea, loss of appetite and reflux who is here for diagnostic upper endoscopy. The examination is deemed medically necessary for diagnostic upper endoscopy. The patient has been seen, interviewed and examined prior to the procedure by both myself and the anesthesia provider. [facility] Disclaimer: The information contained in this section may have been updated after the patient was seen, as this information can be updated by other users. 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 Chronic post-traumatic stress disorder (PTSD) Generalized anxiety disorder with panic attacks MDD (major depressive disorder), recurrent episode, moderate Anxiety and depression Dyspareunia Recurrent UTI Encounter for smoking cessation counseling Nicotine dependence Myofasciitis Depression Hearing loss Surgical History History of cholecystectomy History of placement of ear tubes [place] teeth extracted Family History Other No significant family history Social History (Updated 03/10/25 @ 07:57 by Jessy Verdugo RN) Smoking Status: Current every day smoker tobacco type: e-cigarettes alcohol intake: never substance use type: marijuana (Joanne reports smoking multiple blunts per day for calmness.) current occupational status: unemployed Travel in the last 8 weeks: None Have you lived/traveled outside [place] in past 30 days?: No Contact w/someone who lives/traveled outside US past 30 days?: No Exposure to someone with infectious disease in past 14 days?: No Do you have a fever (greater than 100.4 F or 38 C)?: No Have you tested positive for COVID-19: No Exposed to someone with COVID-19 in past 14 days?: No Do you have a sore throat?: No Do you have a cough?: No Do you have any weakness?: No Do you have any diarrhea?: No Are you experiencing any unusual bleeding?: No Do you have any muscle aches/pain?: No Do you have any abdominal pain?: No Are you experiencing loss of taste or smell?: No Other Medical History Have you received the Flu Vaccine for this season: No Have you received the Pneumonia Vaccine: No Review of Systems Review of Systems Review of systems (narrative): Negative *Cardiovascular Comments: Negative *Gastrointestinal Comments: Negative *Genitourinary Comments: Negative *Musculoskeletal Comments: Negative *Neurologic Comments: Negative Meds Home Medications and Allergies Home Medications ?Medication ?Instructions ?Recorded ?Confirmed ?Type pantoprazole 40 mg tablet,delayed 40 mg PO DAILY #90 tabs 02/09/25 03/10/25 Rx release famotidine 20 mg tablet (Pepcid) 20 mg PO BID 6 weeks #84 tabs 02/15/25 03/10/25 Rx ondansetron 4 mg disintegrating 4 mg PO Q8H PRN nausea and 02/15/25 03/10/25 Rx tablet vomiting 4 days #10 tabs New Prescriptions to Start Prescriptions: Allergies Allergy/AdvReac Type Severity Reaction Status Date / Time ciprofloxacin Allergy Unknown Vomiting Verified 02/17/25 11:30 ceftriaxone AdvReac Unknown Dizziness Verified 02/17/25 11:30 diphenhydramine (From AdvReac Verified 02/17/25 11:30 Benadryl) Exam Data for Last 24 hours Vital signs and Labs for Last 24 Hours: Temp Pulse Resp BP Pulse Ox O2 Del Method 97.5 F L 64 18 113/72 100 Room Air 03/10/25 08:00 03/10/25 08:00 03/10/25 08:00 03/10/25 08:00 03/10/25 08:00 03/10/25 08:00 Laboratory Results - last 24 hr 03/10/25 07:45: Urine HCG, Qual Negative I & O for Last 24 hours: Intake & Output 03/07/25 03/08/25 03/09/25 03/10/25 23:59 23:59 23:59 23:59 Weight 132 lb *Routine HEENT Exam Head: Present normocephalic Eye: Present EOMI and PERRL ENT: Present mucous membranes moist *Routine Neck Exam Neck: Present supple *Routine Respiratory Exam Respiratory: Present CTA bilaterally *Routine Cardiovascular Exam Cardiovascular: Present RRR *Routine Abdominal Exam Abdominal: Present soft and normoactive bowel sounds; Absent tenderness *Routine Rectal Exam Rectal:: deferred *Routine Genitalia Exam Genitalia:: deferred *Routine Extremities Exam Extremities: Absent cyanosis, clubbing or edema *Routine Skin Exam Skin: Present warm; Absent rash *Routine Neurological Exam Neurological: Present alert and oriented X3 Assessment and Plan *Assessment and plan (1) Chronic GERD: Status: Acute Category: Medical Code(s): K21.9 - Gastro-esophageal reflux disease without esophagitis (2) Loss of appetite: Status: Acute Category: Medical Code(s): R63.0 - Anorexia (3) Nausea: Status: Acute Category: Medical Code(s): R11.0 - Nausea (4) Non-cardiac chest pain: Status: Acute Category: Medical Code(s): R07.89 - Other chest pain Plan A/P: 1. Nausea/GERD with loss of appetite is the preprocedural diagnosis. The patient will be anesthetized/sedated using MAC sedation. The patient has been seen and examined. Cardiac and lung assessment prior to the examination is stable. Proceed with planned diagnostic EGD.
[2025-03-10 09:23] VITALS: O2SAT 100
--- NOTE | 2025-03-10 09:31 | HMH.PROCNOTE ---
[facility] Procedure Note Date: 03/10/25 Time: 09:40 Procedure Note:: Upper Endoscopy Procedure Report: Esophagogastroduodenoscopy with cold biopsies Endoscopost: Junior Donahue II, MD Referring Physician: KARO Contreras Date of Procedure: March 10, 2025 Equipment: Olympus GIF 190 standard upper endoscope Sedation: MAC sedation Indications: Ms. Alba is a 19-year-old female with marked and persistent heartburn, reflux and retrosternal noncardiac chest pain. The patient does take pantoprazole daily but continues to have symptoms. She did have cholecystectomy and her symptoms are worse since then. She will frequently get bile emesis. She reports nausea and early satiety with moderate belching. She also gets some discomfort in the epigastrium. She reports no bloating. The patient has lost weight. She was 160 pounds in July 2024 and is now down to 125 pounds. The patient does report alternating constipation and diarrhea. The patient reports no dysphagia or globus sensation. The patient does use marijuana daily. EGD is performed for further evaluation. Procedure: Prior to the procedure, a history and physical exam was performed, and patient's medications and allergies were reviewed. The risks, benefits and alternatives of the sedation and procedure were discussed with the patient. All questions were answered and informed consent was obtained. The patient was brought to the procedure room. Patient identification and proposed procedure were verified by the physician and the nurse. The patient was placed in a left lateral decubitus position and the scope was passed under direct vision. Throughout the procedure, the patient's blood pressure, pulse, and oxygen saturations were monitored continuously. The upper GI endoscopy was accomplished without difficulty. The patient tolerated the procedure well. Findings: The scope was passed directly into the upper esophagus and advanced to the third portion of the duodenum. The post bulbar duodenum, ampulla and duodenal bulb were normal with normal mucosa and conniventes. There was some mild duodenal lymphoid stasis. Biopsies were taken from the first portion of duodenum and bulb to rule out celiac disease. The scope was withdrawn through a normal duodenal bulb and pylorus into the stomach. There was bile reflux with mild linear reactive gastropathy of the antrum. The body and fundus of the stomach were normal. Upon retroflexion there was no hiatal hernia. Biopsies were taken from the antrum. The scope was then withdrawn into the esophagus. There was no evidence of reflux esophagitis or Jacobson's. There were tertiary contractions and evidence of mild esophageal dysmotility. There was a small proximal esophageal inlet patch. The remainder of the esophageal mucosa was normal. Impression: 1. Nonerosive GERD with mild esophageal dysmotility and proximal esophageal inlet patch 2. Bile reflux with mild linear reactive gastropathy of antrum Plan: I will follow-up the biopsies. The patient does have functional GERD with esophageal chest pain/esophageal dyskinesia. We will discuss treatment options. I do feel that most of her bile reflux with symptoms are related to and driven by lower intestinal gas pressure gradients/high gas pressure buildup resulting in backflow of bile and peptic fluid from the duodenum into the stomach (duodenal reflux). This gas production (carbon dioxide, hydrogen, methane, etc.) from the lower intestinal tract is the byproduct of colonic bacterial fermentation. This colonic fermentation occurs when there is more carbohydrate (dietary starches, sugars and high residue plant fiber) substrate that does not get digested (in the middle or small intestine) or occurs when there is colonic fecal buildup and colonic bacterial overgrowth. This indeed leads to belching and the gas pressure buildup with gas pressure gradients that do drive backflow and dyspepsia. I would also consider cannabinoid hyperemesis syndrome especially with her weight loss. Cannabinoid hyperemesis syndrome is typically seen with chronic marijuana use but can be seen with acute or acute on chronic use. Patients may complain of upper abdominal and chest pain, nausea, bilious vomiting alone in the chronic setting or in the acute setting may have abdominal pain, vomiting, or nausea that is typically relieved by hot showers.
[2025-03-10 09:45] VITALS: BP 110/54; PULSE 70; RESP 17; O2SAT 97
[2025-03-10 09:55] VITALS: BP 129/68; PULSE 88; RESP 17; O2SAT 100
[2025-03-10 10:05] VITALS: BP 125/71; PULSE 81; RESP 17; O2SAT 100
[2025-03-10 10:15] VITALS: BP 125/71; PULSE 81; RESP 17; O2SAT 100
== END 2025-03-10 10:42 | disposition home or self-care (01) ==
PROVIDERS: PCP Nurse Practitioner; Visit Provider Internal Medicine Gastroenterology
PROC: 0DJ08ZZ Inspection of Upper Intestinal Tract, Via Natural or Artificial Opening Endoscopic (ICD-10-PCS; CPT 43239; principal; 2025-03-10 09:00)
DX: K29.80 Duodenitis without bleeding (principal); K31.9 Disease of stomach and duodenum, unspecified; K22.4 Dyskinesia of esophagus; K21.9 Gastro-esophageal reflux disease without esophagitis; R63.0 Anorexia; R11.0 Nausea; R07.89 Other chest pain
CPT/HCPCS: 43239; 81025; J7120

== ENCOUNTER 2025-03-17 14:16 | Outpatient (CLI) | payer OTHER, SELFPAY ==
[2025-03-18 14:22] LABS: Endomysial IgA Antibody Negative (Negative)
[2025-03-18 16:20] LABS: Deamidated Gliadin Abs, IgA 4 units (0-19); Deamidated Gliadin Abs, IgG 2 units (0-19); Tissue Transglutaminase IgA Ab <2 U/mL (0-3); Tissue Transglutaminase IgG Ab <2 U/mL (0-5)
[2025-03-23 09:31] LABS: Reticulin IgA Antibody Negative titer (Neg:<1:2.5)
== END 2025-03-17 23:59 | disposition home or self-care (01) ==
LOC: LAB 14:17
PROVIDERS: PCP Nurse Practitioner; Visit Provider Internal Medicine Gastroenterology
DX: K90.0 Celiac disease (principal); R63.0 Anorexia; K29.80 Duodenitis without bleeding
CPT/HCPCS: 36415; 86231; 86256; 86258; 86364

== ENCOUNTER 2025-05-11 00:11 | Emergency (ER) | payer OTHER, SELFPAY ==
--- NOTE | 2025-05-11 01:22 | HMH.EDGENADL ---
Discharge Plan Disposition Patient Disposition: Home, Self-Care Prescriptions Prescriptions: No Action pantoprazole 40 mg tablet,delayed release (DR/EC) 40 mg PO DAILY Qty: 90 1RF ondansetron 4 mg tablet,disintegrating 4 mg PO Q8H PRN (Reason: nausea and vomiting) 4 Days Qty: 10 1RF famotidine [Pepcid] 20 mg tablet 20 mg PO BID 42 Days Qty: 84 0RF Referrals Follow up/Referrals: Provider,Referral, MD [Primary Care Provider, Medical] - See instructions Activity Restrictions/Add. Instructions Additional Instructions/Restrictions: Please follow-up with your primary care provider. Please return to the emergency department if you develop any new or worsening symptoms or become concerned for your health. Consider restarting [id number] Pepcid or pantoprazole if your symptoms are persisting. Clinical Impressions Clinical Impression: Abdominal pain Qualifiers: Abdominal location: left upper quadrant Qualified Code(s): R10.12 - Left upper quadrant pain Instructions Patient Instructions: DI for Acute Abdominal Pain Print Language Print Language: Nigerien Discharge ED Provider: Nestor Cuevas General Adult HPI General Chief complaint: Abdominal Pain Stated complaint: sharp pain under rib L side Time Seen by Provider: 05/11/25 01:20 History of Present Illness HPI narrative: 19-year-old female presents for pain in the left upper abdomen. She reports this has happened before. She reports that she has a history of reflux and when this has happened in the past the GI cocktail has resolved the issue. She denies any concern that she might be . Denies any chest pain or shortness of breath. Pain is not worse with respiration. Denies any fever, reports some nausea but no vomiting. Related Data Previous Rx's ?Medication ?Instructions ?Recorded pantoprazole 40 mg tablet,delayed 40 mg PO DAILY #90 tabs 02/09/25 release famotidine 20 mg tablet (Pepcid) 20 mg PO BID 6 weeks #84 tabs 02/15/25 ondansetron 4 mg disintegrating 4 mg PO Q8H PRN nausea and 02/15/25 tablet vomiting 4 days #10 tabs Allergies Allergy/AdvReac Type Severity Reaction Status Date / Time ciprofloxacin Allergy Unknown Vomiting Verified 02/17/25 11:30 ceftriaxone AdvReac Unknown Dizziness Verified 02/17/25 11:30 diphenhydramine (From AdvReac Verified 02/17/25 11:30 Benadryl) [facility] Disclaimer: The information contained in this section may have been updated after the patient was seen, as this information can be updated by other users. 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 Chronic post-traumatic stress disorder (PTSD) Generalized anxiety disorder with panic attacks MDD (major depressive disorder), recurrent episode, moderate Anxiety and depression Dyspareunia Recurrent UTI Encounter for smoking cessation counseling Nicotine dependence Myofasciitis Depression Hearing loss Surgical History History of cholecystectomy History of placement of ear tubes [place] teeth extracted Family History Other No significant family history Social History (Updated 03/10/25 @ 07:57 by Jessy Verdugo RN) Smoking Status: Current every day smoker tobacco type: e-cigarettes alcohol intake: never substance use type: marijuana (Joanen reports smoking multiple blunts per day for calmness.) current occupational status: unemployed Travel in the last 8 weeks?: None Other Medical History Have you received the Flu Vaccine for this season: No Have you received the Pneumonia Vaccine: No ROS Obtained: Yes All systems reviewed & no additional complaints except as documented Physical Exam General General appearance: alert and in no apparent distress Head Head exam: atraumatic and normocephalic Eye Eye exam: Present normal appearance, PERRL and EOMI ENT ENT exam: Present normal oropharynx and normal external ear exam Neck Neck exam: Present normal inspection and full ROM Chest Chest inspection: Present normal inspection and symmetric chest wall rise; Absent tenderness Respiratory Respiratory exam: Present normal lung sounds bilaterally; Absent respiratory distress Cardiovascular Cardiovascular exam: Present regular rate and normal rhythm Abdominal Exam Abdominal exam: Present soft; Absent distention, tenderness or guarding Extremities Exam Extremities exam: Present normal inspection; Absent edema or joint swelling Back Exam Back exam: Present normal inspection; Absent tenderness Neurological Exam Neurological exam: Present alert and oriented X3; Absent motor sensory deficit Psychiatric Psychiatric exam: Present normal affect and normal mood Skin Skin exam: Present warm, dry and normal color Lymphatic Lymphatic Findings: no adenopathy Medical Decision Making Medical Records Medical records reviewed: Yes I reviewed the patient's medical records. Screening: Per USPSTF and CDC recommendations, given the prevalence of disease in our region, it is our hospital?s policy to screen for HIV and viral Hepatitis for all patients aged 18 and over and those with ongoing risk factors. Alex Inquiry Pt receiving controlled substance: No Alex was queried for this patient: No Vital Signs: 05/11/25 01:25 05/11/25 02:16 Temperature 98.4 F 98.4 F Temperature Source Oral Oral Pulse Rate 70 Pulse Rate [Left] 69 Respiratory Rate 18 16 Blood Pressure 114/62 Blood Pressure [Right Arm] 114/75 Blood Pressure Mean [Right Arm] 88 Blood Pressure Source Automatic Cuff Blood Pressure Source [Right Arm] Automatic Cuff Blood Pressure Position Supine Blood Pressure Position [Right Arm] Sitting 02 Sat by Pulse Oximetry 97 Oxygen Delivery Method Room Air Room Air Lab Data Lab results reviewed: Yes I reviewed the patient's lab results. Orders (Tests/Meds): ED MEDICATIONS Discontinued Medications Generic Name Dose Route Start Last Admin Trade Name Freq PRN Reason Stop Dose Admin Acetaminophen 1,000 mg 05/11/25 01:30 05/11/25 01:33 Acetaminophen 500mg Tab PO 05/11/25 01:31 1,000 mg ONCE ONE Administration Belladonna Alkaloids 60 ml 05/11/25 01:30 05/11/25 01:33 Belladonna Alkaloids 60 Ml Ml PO 05/11/25 01:31 60 ml ONCE ONE Administration Medical Decision Narrative: 19-year-old female with history of GERD presents for epigastric/left upper quadrant abdominal pain.. History was obtained via interactive discussion with patient. On arrival, patient is [afebrile, hemodynamically stable, satting appropriately, alert, oriented x4, GCS 15], moving all extremities spontaneously. Full physical exam performed and significant for benign abdominal exam, clear lungs bilaterally Differential includes but is not limited to GERD, constipation, pneumonia, PE, pancreatitis. Patient requested a GI cocktail and some Tylenol to see if it will help because that has resolved the issue in the past. I discussed with her that there are several things in the differential that I would like to evaluate with labs and imaging but she reports that she would like to try medications first. After administration medication she reports she feels much better and she was ultimately discharged in stable condition. Procedures Risk/Benefits of Procedure(s) Were Explained: Yes Critical Care Critical Care Time Critical Care Time: No
--- OUTSIDE RECORDS SUMMARY | 2025-05-11 01:24 | XMS_ITS | Clinical Summary ---
Author Organization [facility] Address [address] [place] [id number] Phone Care Team Providers Care Sheet Rock Taper Name Role Phone SlickMaeve collins Chris CASTANON Primary Care Provider [phone] Allergies Active Allergy Reactions Criticality Noted Date Comments Ciprofloxacin Nausea And Vomiting 10/21/2022 Diphenhydramine Hcl Other (See Comments) 2022 Medications * This document contains information received from the source organization and may not represent a complete record from that organization. FLUoxetine (PROZAC) 10 mg Oral Capsule Take by mouth daily. Active JUNEL FE , 1 mg-20 mcg (21)/75 mg (7) Oral Tablet Take 1 Tablet by mouth daily. 3 Active PROAIR HFA 90 mcg/actuation Inhl HFA Aerosol Inhaler Inhale 1-2 Puffs into the lungs every 4 hours as needed. 3 Active nitrofurantoin (MACRODANTIN) 50 mg Oral CapsuleIndicatio ns:Frequent UTI Take one tablet with intercourse 30 Capsule 1 3 Active fluconazole (DIFLUCAN) 150 mg Oral TabletIndication s:Vaginal odor,Frequency of urination Take 1 Tablet by mouth daily. 14 Tablet 4 Active Additional Information Patient not taking.Reason: Therapy Completed, Reported on 11/16/2024 nitrofurantoin (MACRODANTIN) 50 mg Oral CapsuleIndicatio ns:Recurrent UTI Take 1 Capsule by mouth nightly. 30 Capsule 12 4 Active propranoloL (INDERAL) 20 mg Oral Tablet 4 Active venlafaxine (EFFEXOR-XR) 75 mg Oral Capsule, Sust. Release 24 hr 4 Active aluminum chloride (DRYSOL) 20 % Top SolutionIndicati ons:Hyperhidrosi s Apply topically nightly. Apply a thin layer to areas of excessive sweating nightly. Wash off in the morning. 60 mL 4 4 Active benzoyl peroxide 5 % Top CleanserIndicati ons:Folliculitis Apply daily in the shower to the affected areas of the thighs. Let sit 5 minutes then rinse. 227 g 4 4 Active ondansetron (ZOFRAN) 4 mg Oral TabletIndication s:Right foot pain,Onychocrypt osis,Paronychia of toe, unspecified laterality 4 mg. 4 Active omeprazole (PRILOSEC) 40 mg Oral Capsule, Delayed Release(E.C.) Take 40 mg by mouth daily. 4 Active venlafaxine (EFFEXOR-XR) 150 mg Oral Capsule, Sust. Release 24 hr TAKE 1 CAPSULE ORALLY ONCE DAILY 4 Active Active Problems Problem Noted Date Diagnosed Date Major depressive disorder, r ecurrent severe without psychotic features 07/19/2022 Laceration of right forearm 07/18/2022 Abrasion of multiple sites of right hand and fin amirah 07/18/2022 Suicidal behavior without attempted self-injury 07/18/2022 Cannabis use disorder, severe, dependence 2021 Borderline personality disorder 07/18/2022 Generalized anxiety disorder 07/18/2022 Patellofemoral pain syndrome of both knees 02/23 Resolved Problems Problem Noted Date Diagnosed Date Resolved Date Current severe episode of ma amna depressive disorder without psychotic features without prior episode 12/27/2019 07/14/2020 Suicidal ideation 12/27/2019 07/14/2020 Immunizations Immunization Administration Dates Next Due DTaP 07/21/2007, 5,01/20/2004,12/09,2003 HPV Quadrivalent 07/31/2015,10/07/2014, 4 Hepatitis A, Unspecified Formulation 08/30/2008, 07/21/2007 Hepatitis B, Unspecified Formulation 04/23/2004, 2003,2003 HiB, Unspecified Formulation 12/31/2004, 01/20/2004,2003,09/29 IPV 07/21/2007, 4,2003,09/29 Influenza Nasal, Unspecified Formulation 07/29/2014,10/09/2013,09/25/2012,09/06 Influenza Vaccine, Unspecifi ed Formulation 08/23/2014 MMR 07/21/2007,07/30/2004 Meningococcal Conjugate 07/14/2020,07/29/2014 Tdap 07/16/2022,07/29/2014 Varicella 01/21/2007,07/30/2004 Surgical History Surgery Date Site/Laterality Comments TYMPANOSTOMY TUBE PLACEMENT 12/01/2004 - 11/30/2005 Medical History Medical History Date Comments Depression Family History Medical History Relation Name Comments Other Brother 1 [place] No Known Problems Father Breast Cancer Maternal Aunt No Known Problems Maternal Grandfather Cancer Maternal Grandmother ovarian Diabetes Maternal Grandmother High Blood Pressure Maternal Grandmother No Known Problems Mother No Known Problems Paternal Grandfather COPD Paternal Grandmother Emphysema Paternal Grandmother Heart Failure Paternal Grandmother Relation Name Status Comments Brother 1 Alive Father Alive Maternal Aunt Maternal Grandfather Alive Maternal Grandmother Alive Mother Alive Paternal Grandfather Paternal Grandmother Alive Social History Tobacco Use Types Packs/Day Years Used Date Smoking Tobacco: Light Smoker Smokeless Tobacco: Never Tobacco Cessation:Ready to Q uit: Not Asked; Counseling Given: Not Answered Alcohol Use Standard Drinks/Week Comments No 0 (1 standard drink = 0.6 oz pur e alcohol) PHQ-2 Answer Date Recorded PHQ-2 Score 5 01/12/2020 Sexually Active Control Partners Comments Yes Pill Comments No Sex and Gender Information Value Date Recorded Sex Assigned at Not on file Legal Sex Female 5:45 PM EDT Gender Identity Not on file Sexual Orientation Not on file Occupation Industry Job Start Date Job End Date 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, [employer] Not on file Not on file Not on file Obstetrics History Last Filed Vital Signs Vital Sign Reading Time Taken Comments Blood Pressure 120/80 11/16/2024 1:11 PM EST Pulse 91 11/16/2024 1:11 PM EST Temperature 37 C (98.6 F) 11/16/2024 1:11 PM EST Respiratory Rate 20 11/16/2024 1:11 PM EST Oxygen Saturation 98% 11/16/2024 1:11 PM EST Inhaled Oxygen Concentration - - Weight 61.2 kg (135 lb) 11/16/2024 1:11 PM EST Height 165.1 cm (5' 5 ) 11/16/2024 1:11 PM EST Body Mass Index 22.47 11/16/2024 1:11 PM EST Plan of Treatment Health Maintenance Due Date Last Done Comments Meningococcal B Vaccine (1 o f 2 - Standard) 2019 Annual Wellness Exam 07/14/2021 07/14/2020 Pneumococcal Vaccine 0-49 (1 of 2 - PCV) 2022 Cervical Cancer Screening 2024 Pap Smear 2024 COVID-19 Vaccine ( - 2023-2 5 season) 2024 Influenza Vaccine (Season Ended) 2025 09/23/2018, 08/23/2014, 08/23/2014, Additional history exists Chlamydia Screening 11/16/2025 11/16/2024, 06/16/2023, 07/14/2020 DTaP/TDaP/Td (8 - Td or Tdap) 07/16/2032, 07/29/2014, 07/21/2007, Additional history exists Hepatitis B Vaccine Completed 04/23/2004, 2003, 2003 HPV Completed 07/31/2015, 1105/2014, 07/29/2014 Goals Goal Patient Goal Type Associated Problems Recent Progress Patient-Stated? Author Maintain a healthy diet, exercise regularly and maintain an ideal body weight General No Janett Franklin LCSW Stay Tobacco Free Lifestyle No Janett Franklin LCSW Procedures Procedure Name Priority Date/Time Associated Diagnosis Comments CHLAMYDIA/GC BY TMA Routine 11/16/2024 1:07 PM EST Dysuria Abnormal urine odor STD exposure from Last 3 Months or Most Recently Relevant to Health Maintenance Results * (ABNORMAL) CHLAMYDIA/GC BY TMA (11/16/2024 1:07 PM EST) Chlamydia trachomatis Not Detected Not Detected 11/17/2024 6:19 AM EST [facility] [employer] Neisseria gonorrhoeae Detected(A) Not Detected 11/17/2024 6:19 AM EST [facility] [employer] Urine URINE SPECIMEN COLLECTION / Unknown 11/16/2024 1:07 PM EST 11/16/2024 1:07 PM EST Narrative [facility] [employer], [facility] - 11/17/2024 6:19 AM EST Testing methodology is resistance welding machine operator mediated amplification (TMA) using the Aptima Combo 2 assay from [employer]. A negative result does not completely rule out a Chlamydia trachomatis or Neisseria gonorrhoeae infection due to potential inhibitors or levels present below the limit of detection by this assay. Results are dependent on proper collection and transport of specimen. This test is indicated for medical purposes only and should not be used for legal or forensic purposes. The performance characteristics of this assay were validated by the testing laboratory. This assay is FDA cleared to test the following specimens: clinician-collected endocervical, vaginal, male urethral swab specimens, rectal swabs, and throat/pharyngeal swabs; patient collected vaginal specimens within a clinic setting; Thin Prep Specimens in PreservCyt Solution; and first-stream, unpreserved male and female urine specimens. Detailed methodology is available upon request. Mirtha Swanson DO MICROBIOLOGY - GENERAL ORDER CHANO Final Result [facility] [employer] [facility] [address] [facility], [place] [address] from Last 3 Months or Most Recently Relevant to Health Maintenance [facility] ANTHEM PPO SAL PPO [id number] [place] [address] Care Teams Sheet Rock Taper Relationship Specialty Start Date End Date Maeve Kruger APRN [address] [facility] [address] [place] [id number] PCP - General Nurse Practitioner 04/26/24
--- OUTSIDE RECORDS SUMMARY | 2025-05-11 01:24 | XMS_ITS | Clinical Summary ---
Author Organization [facility] Address [address] [place] [address] Care Team Providers Care Transfer And Pumphouse Operator Name Role Phone Maeve Kruger Primary Care Provider [phone] Allergies Active Allergy Reactions Criticality Noted Date Comments Diphenhydramine Hcl 07/28/2023 Medications FLUoxetine (PROzac) 10 mg capsule Take by mouth daily. Active azithromycin (ZITHROMAX) 250 mg tabletIndications :Acute bronchitis, unspecified organism,Acute bronchospasm 2 po qd on day one, then 1 po qd 6 Tablet 3 Active predniSONE (DELTASONE) 20 mg tabletIndications :Acute bronchitis, unspecified organism,Acute bronchospasm Take 2 Tablets (40 mg) by mouth daily. 10 Tablet 3 Active albuterol sulfate (ProAir HFA) 90 mcg/actuation HFA Aerosol InhalerIndication s:Acute bronchitis, unspecified organism,Acute bronchospasm Take 1-2 Puffs by inhalation every 4 hours as needed. 1 Each 3 Active Social History Tobacco Use Types Packs/Day Years Used Date Smoking Tobacco: Never Assessed Comments Unknown Sex and Gender Information Value Date Recorded Sex Assigned at Not on file Legal Sex Female 1:49 PM EDT Gender Identity Not on file Sexual Orientation Not on file Last Filed Vital Signs Vital Sign Reading Time Taken Comments Blood Pressure 102/68 07/28/2023 2:29 PM EDT Pulse 96 07/28/2023 2:29 PM EDT Temperature 37.1 C (98.7 F) 07/28/2023 2:29 PM EDT Respiratory Rate 15 07/28/2023 2:29 PM EDT Oxygen Saturation 97% 07/28/2023 2:29 PM EDT Inhaled Oxygen Concentration - - Weight - - Height - - Body Mass Index - - Plan of Treatment Health Maintenance Due Date Last Done Comments HPV Vaccine (1 - 3-dose series) 2018 Chlamydia Screening 2019 Lipid Screening 2023 Cervical Cancer Screening 2024 COVID-19 Vaccine ( - 2023-2 5 season) 2024 Depression Screening 12/01/2024 Influenza Vaccination (Seaso n Ended) 2025 Tetanus Vaccination (Every 1 0 Years) 07/16/2032 07/16/2022, 07/29/2014, 07/21/2007, Additional history exists Meningococcal Conjugate Vaccine Completed , 07/29/2014 Insurance ANTH Member Subscriber Plan / Payer (Ef fective 2022-Present) Name:Joanne Alba Relation to Subscriber:Child Name:GMERIC Daphne Date of :1983 (Home) Address: [address] [place] [id number] Payer ID:[id number] (NAIC) Type:PPO Address: [facility] [address] [place] [id number] Care Teams Transfer And Pumphouse Operator Relationship Specialty Start Date End Date Maeve Kruger [address] [place] [address] PCP - General Nurse Practitioner 07/28/23
--- OUTSIDE RECORDS SUMMARY | 2025-05-11 01:24 | XMS_ITS | Clinical Summary ---
Author Organization [facility] Address [facility] [place] [address] Care Team Providers Care Clay Thrower Name Role Phone Pcp, No Primary Care Provider [phone] Source Comments This information has been disclosed to you from confidential records protectedfrom disclosure by state law. You shall make no further disclosure of thisinformation without the specific, written, and informed release of theindividual to whom it pertains, or as otherwise permitted by law. A generalauthorization for the release of medical or other information is not sufficientfor the purposes of therelease of HIV test results or diagnoses. [id number] Allergies No known active allergies Medications acetaminophen (TYLENOL) 325 MG tabletIndicatio ns:Pelvic pain Take 2 tablets (650 mg total) by mouth every 6 hours as needed. 100 tablet 1 07/02/2024 Active naproxen (NAPROSYN) 500 MG tabletIndicatio ns:Pelvic pain Take 1 tablet (500 mg total) by mouth 2 times a day as needed for Pain (for pain). 30 tablet 1 07/02/2024 Active ondansetron (ZOFRAN) 4 MG tabletIndicatio ns:Pelvic pain Take 1 tablet (4 mg total) by mouth every 6 hours as needed for Nausea. 16 tablet 07/02/2024 Active Social History Tobacco Use Types Packs/Day Years Used Date Smoking Tobacco: Never Assessed Comments No Sex and Gender Information Value Date Recorded Sex Assigned at Female 07/02/2024 7:09 AM EDT Legal Sex Female 9:11 PM EST Gender Identity Female 07/02/2024 7:09 AM EDT Sexual Orientation Not on file Last Filed Vital Signs Vital Sign Reading Time Taken Comments Blood Pressure 159/128 07/02/2024 7:17 AM EDT Pulse 78 07/02/2024 7:17 AM EDT Temperature 36.4 C (97.6 F) 07/02/2024 7:17 AM EDT Respiratory Rate 18 07/02/2024 7:17 AM EDT Oxygen Saturation 100% 07/02/2024 7:17 AM EDT Inhaled Oxygen Concentration 100% 07/02/2024 7 :17 AM EDT Weight - - Height - - Body Mass Index - - Plan of Treatment Health Maintenance Due Date Last Done Comments Pediatric Hearing Test 2014 Alcohol Misuse Screening 2021 Depression Screening 2021 HIV Screening 2021 Cervical Cancer Screening/Pap Smear (MyChart) 2024 Immunization: COVID-19 ( season) 2024 Immunization: Influenza (MyChart) (Season Ended) 2025 09/23/2018, 08/23/2014, 07/29/2014, Additional history exists Immunization: DTaP/Tdap/Td (8 - Td or Tdap) 07/16/2032 07/16/2022, 07/29/2014, 07/21/2007, Additional history exists Immunization: Hepatitis B Completed 2003, 2003, 2003 Immunization: HPV Completed 07/31/2015, , 07/29/2014 Immunization: Meningococcal ACWY Completed 07/14/2020, 07/29/2014 Hepatitis C Screening (MyChart) Completed 07/02/2024 Immunization: Pneumococcal Aged Out N o longer eligible based on patient's age to complete this topic Procedures Procedure Name Priority Date/Time Associated Diagnosis Comments ED HCV AB REFLEX TO HCV QUANT Routine 07/02/2024 7:44 AM EDT from Last 3 Months or Most Recently Relevant to Health Maintenance Results * ED HCV Ab Reflex To HCV Quant (07/02/2024 7:44 AM EDT) HCV Ab Nonreactive Nonreactive 07/02/2024 9:18 AM EDT [facility] Comment:Health Department no tified in accordance with reportable infectious disease guidelines. HCVAB Number 0.15 0.00 - 0.79 S/CO 07/02/2024 9:18 AM EDT [facility] Serum 07/02/2024 7:44 AM EDT 07/02/2024 8:16 AM EDT us Oliva [facility] BLOOD ORDERABLES Final Resu lt [facility] [address] [place] [address], [facility] from Last 3 Months or Most Recently Relevant to Health Maintenance Insurance [facility] Address: [facility] [id number] [place] [address] Care Teams Clay Thrower Relationship Specialty Start Date End Date Pcp, No [address] [place] [address] PCP - General 07/02/24
[2025-05-11 01:25] VITALS: BP 114/75; PULSE 69; RESP 18; TEMP 36.9; O2SAT 97
[2025-05-11] MEDS: BELLADONNA ALKALOIDS 60 ML ML PO (01:33)
[2025-05-11] MEDS: ACETAMINOPHEN 500MG TAB 1000 MG PO (01:33)
[2025-05-11 02:16] VITALS: BP 114/62; PULSE 70; RESP 16; TEMP 36.9; O2SAT 97
== END 2025-05-11 02:18 | disposition home or self-care (01) ==
PROVIDERS: Emergency Provider Emergency Medicine
DX: R10.12 Left upper quadrant pain (principal); K21.9 Gastro-esophageal reflux disease without esophagitis; F17.290 Nicotine dependence, other tobacco product, uncomplicated
CPT/HCPCS: 99283

== ENCOUNTER 2025-09-14 13:12 | Outpatient (CLI) | payer OTHER, SELFPAY ==
--- OUTSIDE RECORDS SUMMARY | 2025-09-14 13:15 | XMS_ITS | Clinical Summary ---
Author Organization [facility] Address [address] [place] [phone] Phone Care Team Providers Care Methodologist Name Role Phone SlickMaeve collins Chris CASTANON Primary Care Provider [phone] Allergies Active Allergy Reactions Criticality Noted Date [...] file Not on file Not on file Last Filed Vital Signs [...] Screening 2024 Pap Smear 2024 COVID-19 Vaccine (1 - 2023-2 5 season) 2025 Influenza Vaccine (#1) 2025 8, 08/23/2014, 08/23/2014, Additional history exists Chlamydia Screening [...] Diagnosis Comments CHLAMYDIA/GC BY TMA Routine 11/16/2024 1 :07 PM EST Dysuria Abnormal urine odor STD exposure from Last 3 Months or Most Recently Relevant to Health Maintenance Results * (ABNORMAL) CHLAMYDIA/GC BY TMA (11/16/2024 1:07 PM EST) Chlamydia trachomatis Not Detected Not Detected 11/17/2024 6:19 AM EST [facility] Neisseria gonorrhoeae Detected(A) Not Detected 11/17/2024 6:19 AM EST [facility] Urine URINE SPECIMEN COLLECTION / Unknown 11/16/2024 1:07 PM EST 11/16/2024 1:07 PM EST Narrative [facility] - 11/17/2024 6:19 AM EST Testing methodology is furnace mechanic helper mediated amplification (TMA) using the Aptima Combo 2 assay from [employer]. A negative result does not completely rule [...] MICROBIOLOGY - GENERAL ORDER CHANO Final Result [facility] [address] [facility], [place] [address] from Last 3 Months or Most Recently Relevant to Health Maintenance [facility] ANTHEM PPO [address] [place] [id number] Care Teams Methodologist Relationship Specialty Start Date End Date Maeve Kruger APRN [address] [facility] [address] [place] [address] PCP - General Nurse Practitioner 04/26/24
--- OUTSIDE RECORDS SUMMARY | 2025-09-14 13:15 | XMS_ITS | Clinical Summary ---
Author Organization [facility] Address [facility] [place] [address] Care Team Providers Care Molded Goods Embossing Press Operator Name Role Phone Pcp, No Primary Care Provider [phone] Source Comments This information has been disclosed [...] therelease of HIV test results or diagnoses. [id number] Allergies No known active allergies Medications [...] Health Maintenance Due Date Last Done Comments Immunization: Meningococcal B (1 of 2 - Standard) 2019 Alcohol Misuse Screening 2021 Depression Screening 2021 HIV Screening 2021 Cervical Cancer Screening/Pap Smear (MyChart) 2024 Immunization: COVID-19 ( season) 2025 Immunization: Influenza (MyChart) (#1) 2025 09/23/2018, 08/23/2014, 07/29/2014, Additional history exists [...] - 0.79 S/CO 07/02/2024 9:18 AM EDT [facility] Serum 07/02/2024 7:44 AM EDT 07/02/2024 8:16 AM EDT us Oliva G[facility] BLOOD ORDERABLES Final Resu lt [facility] [address] [place] [address], [facility] from Last 3 Months or Most Recently Relevant to Health Maintenance Insurance [employer] Care Teams Molded Goods Embossing Press Operator Relationship Specialty Start Date End Date Pcp, No [address] [place] [address] PCP - General 07/02/24
--- OUTSIDE RECORDS SUMMARY | 2025-09-14 13:15 | XMS_ITS | Clinical Summary ---
Author Organization [facility] Address [address] [place] [address] Care Team Providers Care Wool Sorter Name Role Phone Maeve Kruger Primary Care Provider [phone] Allergies Active Allergy Reactions Criticality Noted Date [...] Lipid Screening 2023 Cervical Cancer Screening 2024 Depression Screening 12/01/2024 COVID-19 Vaccine (1 - 2023-2 5 season) 2025 Influenza Vaccination (#1) 2025 Tetanus Vaccination (Every 1 0 Years) 07/16/2032 07/16/2022, 07/29/2014, 07/21/2007, Additional history exists Meningococcal Conjugate Vaccine Discontinued 0, 07/29/2014 Insurance Member Subscriber Plan / Payer (Ef fective 2022-Present) Name:Joanne Alba Relation to Subscriber:Child Name:GMERIC Daphne Date of :1985 (Home) Address: [address] [place] [address] Payer ID:[id number] (NAIC) Type:PPO Address: [facility] [id number] [place] [id number] Care Teams Wool Sorter Relationship Specialty Start Date End Date Maeve Kruger [address] [place] [address] PCP - General Nurse Practitioner 07/28/23
--- NOTE | 2025-09-14 13:30 | MM_ITS ---
PROCEDURE INFORMATION: Exam: US Right Breast, Complete MG Bilateral Diagnostic Breast Tomosynthesis Exam date and time: 09/14/2025 1:30 PM Age: 20 years old Clinical indication: Right breast pain/lump and swelling for 2 weeks. TECHNIQUE: Imaging protocol: Complete ultrasound of all four quadrants of the right breast and the retroareolar regions, including ultrasound of the axilla when performed. Bilateral Diagnostic tomosynthesis and 2D mammography including computer-aided detection (CAD) when performed. Unilateral or bilateral exam. Triangular skin marker placed on palpable concern spot-compression added. COMPARISON: No relevant prior studies available. FINDINGS: MAMMOGRAPHY: Breast mammogram findings: Breast composition: The breasts are heterogeneously dense, which may obscure small masses. Mass: None. Architectural distortion: None. Calcifications: No suspicious calcifications. Asymmetric density: Questionable minimally broad asymmetrically greater tissue in the posterior 3rd of the both upper outer and lower inner quadrants, not discretely related to the palpable concern in the right upper outer quadrant. Skin thickening: None. Axillary adenopathy: None. Other: Related to the palpable concern, no other focal mammographic finding other than questionable areas of bright asymmetric inflammation in the right posterior breast. ULTRASOUND: Breast ultrasound findings: Ultrasound images of right breast including the retroareolar region, all 4 quadrants and the axilla. Palpable concern is not discretely annotated on ultrasound limiting evaluation. 2 questionable hypoechoic avascular regions, which may the masses or islands of breast tissue, at 10 o'clock 3 cm from the nipple measuring 1.1 x 0.7 x 1.3 cm and retroareolar measuring 1.5 x 0.9 x 1.0 cm. Abnormal appearing axillary lymph nodes with a lobulated border and thickened cortex measuring up to 0.4 cm with indentations deforming the central fatty hilum and mild increased Doppler flow. IMPRESSION: See comment Regarding pain and lump in the right upper outer quadrant, no definite focal mammographic finding and not discretely annotated on the ultrasound (the 10 o'clock sonographic finding is in the upper outer quadrant and may correlate to the palpable concern which can be correlated clinically as well). Mild broad asymmetrically denser tissue in the right posterior breast with 2 questionable right sonographic masses at 10 o'clock and retroareolar. Consider adding breast MRI, alternatively, consider ultrasound-guided biopsy possible masses on the right at 10 o'clock and retroareolar as well as the abnormal left axillary lymph node, as clinically indicated. ASSESSMENT: BI-RADS Category 4: Suspicious.
== END 2025-09-14 23:59 | disposition home or self-care (01) ==
LOC: RAD 13:13
PROVIDERS: PCP Nurse Practitioner; Visit Provider Nurse Practitioner
DX: D48.61 Neoplasm of uncertain behavior of right breast (principal); R92.331 Mammographic heterogeneous density, right breast; N63.41 Unspecified lump in right breast, subareolar; N63.11 Unspecified lump in the right breast, upper outer quadrant
CPT/HCPCS: 76641; 77062; 77066; G0279